=== PATIENT | male | born 1935 | race Caucasian/White ===

== ENCOUNTER → 2017-07-19 | Outpatient (REF) | payer MEDICARE, OTHER ==
[~2017-07-19] MED LIST: /PANT40TA PO; ACET50TA PO; ASPI81TA85 PO; IRONTAB3 PO; MULTTAB4 PO; PIOG15TA2 PO; SIMV40TA2 PO; TRIL135C PO; VALSARTAN/HCTZ PO
[2017-07-19 18:51] LABS: CALCIUM LEVEL 8.3 MG/DL (8.8-10.2); CREATININE FOR GFR 1.54 MG/DL (0.70-1.30); GLOMERULAR FILTRATION RATE 46.5 (>35); POTASSIUM SERUM 4.3 MEQ/L (3.5-5.1)
[2017-07-19 18:55] LABS: MEAN CORPUSCULAR HEMOGLOBIN 29.9 pg (27.0-33.0); MEAN CORPUSCULAR HGB CONC 31.8 g/dl (32.0-36.5); MEAN CORPUSCULAR VOLUME 94.3 fl (80.0-96.0); PLATELET COUNT, AUTOMATED 217 10^3/uL (150-450); RED CELL DISTRIBUTION WIDTH 14.6 % (11.5-14.5); WHITE BLOOD COUNT 8.4 10^3/uL (4.0-10.0)
== END ==
LOC: M LAB REF 16:08
PROVIDERS: ATTEND Internal Medicine
DX: M25.579 Pain in unspecified ankle and joints of unspecified foot (principal); Z95.1 Presence of aortocoronary bypass graft

== ENCOUNTER → 2017-07-30 | Outpatient (CLI) | payer MEDICARE, OTHER ==
--- NOTE | 2017-07-30 16:37 | REP ---
PA and lateral chest: There are no comparisons. There is effacement of the left costophrenic angle. This could be a pleural adhesion or pleural effusion. The left lung is otherwise clear. The right lung is clear. There are sternotomy wires and cardiac valve replacement. Cardiac size is enlarged. There is thoracic scoliosis convex right in the lower thoracic spine left at the thoracolumbar junction. The mediastinum and bony thorax are otherwise unremarkable except for multilevel thoracic spine degenerative disc disease, not unusual for patient age. Signed by Corey Wallace MD 07/30/2017 04:28 P
== END ==
LOC: M RAD 14:56
PROVIDERS: ATTEND Internal Medicine Cardiovascular Disease
DX: Z95.1 Presence of aortocoronary bypass graft (principal); I51.7 Cardiomegaly

== ENCOUNTER → 2017-08-05 | Outpatient (REF) | payer MEDICARE, OTHER ==
[2017-08-05 15:32] LABS: ALBUMIN 2.7 GM/DL (3.2-5.2); ALBUMIN/GLOBULIN RATIO 0.75 (1.00-1.93); CREATININE FOR GFR 1.8 MG/DL (0.70-1.30); GLOMERULAR FILTRATION RATE 38.8 (>35); POTASSIUM SERUM 4.5 MEQ/L (3.5-5.1); TOTAL PROTEIN 6.3 GM/DL (6.4-8.2)
[2017-08-05 18:24] LABS: BASO % 0.3 % (0.0-1.0); EOS % 0.1 % (0.0-3.0); IMMATURE GRANULOCYTE % 0.9 % (0-0); LYMPH # 1.3 10^3/uL (1.5-4.5); LYMPH % 12.6 % (24.0-44.0); MEAN CORPUSCULAR HEMOGLOBIN 29.2 pg (27.0-33.0); MEAN CORPUSCULAR HGB CONC 32.8 g/dl (32.0-36.5); MEAN CORPUSCULAR VOLUME 89.2 fl (80.0-96.0); MONO # 1.3 10^3/uL (0.0-0.8); MONO % 12.5 % (0.0-5.0); NEUTROPHILS # 7.5 10^3/uL (1.8-7.7); NEUTROPHILS % 73.6 % (36.0-66.0); RED CELL DISTRIBUTION WIDTH 14.7 % (11.5-14.5); WHITE BLOOD COUNT 10.2 10^3/uL (4.0-10.0)
[2017-08-05 19:08] LABS: ADD MANUAL DIFFER NO; DIFF SLIDE NUMBER 263; PLATELET COUNT, AUTOMATED 83 10^3/uL (150-450)
[2017-08-05 19:09] LABS: IMMATURE PLATELET FRACTION % 10.1 % (0.0-10.9)
== END ==
LOC: M LAB REF 12:50
DX: R35.0 Frequency of micturition (principal)

== ENCOUNTER 2018-06-29 17:22 | Outpatient (CLI) | payer MEDICARE, OTHER ==
[2018-06-30 09:08] LABS: HEMATOCRIT 42.1 % (42.0-52.0); HEMOGLOBIN 13.6 g/dl (13.5-17.5); MEAN CORPUSCULAR HEMOGLOBIN 31.8 pg (27.0-33.0); MEAN CORPUSCULAR HGB CONC 32.3 g/dl (32.0-36.5); MEAN CORPUSCULAR VOLUME 98.4 fl (80.0-96.0); PLATELET COUNT, AUTOMATED 108 10^3/uL (150-450); RED BLOOD COUNT 4.28 10^6/uL (4.30-6.10); RED CELL DISTRIBUTION WIDTH 14.2 % (11.5-14.5); WHITE BLOOD COUNT 7.6 10^3/uL (4.0-10.0)
[2018-06-30 09:22] LABS: INR 1.01; PROTHROMBIN TIME 13.4 SECONDS (12.1-14.4)
[2018-06-30 09:29] LABS: ALBUMIN/GLOBULIN RATIO 0.75 (1.00-1.93); ALKALINE PHOSPHATASE 133 U/L (45-117); ALT/SGPT 38 U/L (12-78); ANION GAP 6 MEQ/L (8-16); AST/SGOT 58 U/L (7-37); BILIRUBIN,TOTAL 0.6 MG/DL (0.2-1.0); BLOOD UREA NITROGEN 21 MG/DL (7-18); CALCIUM LEVEL 8.7 MG/DL (8.8-10.2); CARBON DIOXIDE LEVEL 31 MEQ/L (21-32); CHLORIDE LEVEL 102 MEQ/L (98-107); CHOLESTEROL LEVEL 139 MG/DL (<200); CHOLESTEROL RISK RATIO 3.564 (<5); CREATININE FOR GFR 1.83 MG/DL (0.70-1.30); GLUCOSE, FASTING 125 MG/DL (70-100); HDL CHOLESTEROL 39 MG/DL (>40); LDL CHOLESTEROL 45 MG/DL (<100); MAGNESIUM LEVEL 2.4 MG/DL (1.8-2.4); NON-HDL-C 100 MG/DL; POTASSIUM SERUM 4.2 MEQ/L (3.5-5.1); SODIUM LEVEL 139 MEQ/L (136-145); TRIGLYCERIDES LEVEL 275 MG/DL (<150)
[2018-06-30 11:37] LABS: PTH INTACT 72.9 PG/ML (18.5-88.0)
[2018-06-30 12:53] LABS: ESTIMATED AVERAGE GLUCOSE 163 MG/DL (60-110); HEMOGLOBIN A1c 7.3 %
[2018-06-30 18:07] LABS: AMORPHOUS SEDIMENT MODERATE (NEGATIVE); APPEARANCE, URINE CLOUDY (CLEAR); BACTERIA, URINE AUTO 1+ (NEGATIVE); BILIRUBIN, URINE AUTO NEGATIVE (NEGATIVE); BLOOD, URINE BLOOD NEGATIVE (NEGATIVE); COLOR, URINE YELLOW (YELLOW); GLUCOSE, URINE (UA) AUTO NEGATIVE (NEGATIVE); KETONE, URINE AUTO NEGATIVE (NEGATIVE); LEUKOCYTE ESTERASE, URINE AUTO 2+ (NEGATIVE); MUCUS, URINE SMALL (NEGATIVE); NITRITE, URINE AUTO NEGATIVE (NEGATIVE); PROTEIN, URINE AUTO 2+ mg/dL (NEGATIVE); RBC, URINE AUTO 3 /HPF (0-3); SPECIFIC GRAVITY URINE AUTO 1.017 (1.002-1.035); SQUAMOUS EPITHELIAL CELL UR AU 2 /HPF (0-6); UROBILINOGEN, URINE AUTO 0.2 mg/dL (0.0-2.0); WBC, URINE AUTO TNTC /HPF (0-3)
[2018-06-30 18:52] LABS: MAU/CREAT RATIO 674.3 MCG/MG (0.0-30.0)
== END 2018-06-30 ==
LOC: M LAB 06-30 08:21
DX: K74.60 Unspecified cirrhosis of liver (principal); Z79.899 Other long term (current) drug therapy
CPT/HCPCS: 83735

== ENCOUNTER → 2018-12-04 | Outpatient (REF) | payer MEDICARE, OTHER ==
[~2018-12-04] MED LIST changes: -/PANT40TA PO; -ACET50TA PO; +MAPA500T17 PO; +PROT1TAB2 PO
[2018-12-05 10:28] LABS: APPEARANCE, URINE CLOUDY (CLEAR); BACTERIA, URINE AUTO 1+ (NEGATIVE); BILIRUBIN, URINE AUTO NEGATIVE (NEGATIVE); BLOOD, URINE BLOOD NEGATIVE (NEGATIVE); COLOR, URINE YELLOW (YELLOW); GLUCOSE, URINE (UA) AUTO 2+ mg/dL (NEGATIVE); KETONE, URINE AUTO NEGATIVE (NEGATIVE); LEUKOCYTE ESTERASE, URINE AUTO 3+ (NEGATIVE); NITRITE, URINE AUTO NEGATIVE (NEGATIVE); PROTEIN, URINE AUTO 1+ mg/dL (NEGATIVE); RBC, URINE AUTO 2 /HPF (0-3); SPECIFIC GRAVITY URINE AUTO 1.012 (1.002-1.035); SQUAMOUS EPITHELIAL CELL UR AU 0 /HPF (0-6); UROBILINOGEN, URINE AUTO 0.2 mg/dL (0.0-2.0); WBC, URINE AUTO 92 /HPF (0-3)
[2018-12-05 11:34] LABS: CREATININE, URINE 62.5 MG/DL; MAU/CREAT RATIO 342.4 MCG/MG (0.0-30.0)
== END ==
LOC: M LAB REF 09:24
PROVIDERS: ATTEND Internal Medicine
DX: Z00.00 Encounter for general adult medical examination without abnormal findings (principal); K74.60 Unspecified cirrhosis of liver; R79.89 Other specified abnormal findings of blood chemistry; N18.3 Chronic kidney disease, stage 3 (moderate)

== ENCOUNTER → 2019-03-31 | Outpatient (CLI) | payer MEDICARE, OTHER ==
[2019-03-31 18:15] LABS: CHOLESTEROL RISK RATIO 3.709 (<5); MAGNESIUM LEVEL 2.5 MG/DL (1.8-2.4); THYROID STIMULATING HORMONE 5.9 uIU/ML (0.358-3.740); URIC ACID 6.7 MG/DL (3.5-7.2)
[2019-03-31 18:18] LABS: HEMOGLOBIN A1c 7.3 %
== END ==
LOC: M LAB 17:19
PROVIDERS: ATTEND Internal Medicine
DX: E11.29 Type 2 diabetes mellitus with other diabetic kidney complication (principal); E78.00 Pure hypercholesterolemia, unspecified; I12.9 Hypertensive chronic kidney disease with stage 1 through stage 4 chronic kidney disease, or unspecified chronic kidney disease; E03.2 Hypothyroidism due to medicaments and other exogenous substances; N18.3 Chronic kidney disease, stage 3 (moderate)
CPT/HCPCS: 36415; 80061; 83036; 83735; 84443; 84550; G0463

== ENCOUNTER → 2020-05-30 | Outpatient (REF) | payer MEDICARE, OTHER ==
[2020-05-30 18:35] LABS: PERCENT SATURATION 24.8 % (19.7-50.0)
== END ==
LOC: M LAB REF 17:02
PROVIDERS: ATTEND Internal Medicine Nephrology
DX: N18.30 Chronic kidney disease, stage 3 unspecified (principal); D63.1 Anemia in chronic kidney disease

== ENCOUNTER → 2020-06-27 | Outpatient (REF) | payer MEDICARE, OTHER ==
[2020-06-27 17:46] LABS: BACTERIA, URINE AUTO NEGATIVE (NEGATIVE); RBC, URINE AUTO 63 /HPF (0-3); RENAL EPITHELIAL CELLS 1 /HPF; SQUAMOUS EPITHELIAL CELL UR AU 1 /HPF (0-6); WBC, URINE AUTO TNTC /HPF (0-3)
== END ==
LOC: M LAB REF 16:59
PROVIDERS: ATTEND Internal Medicine Nephrology
DX: N18.30 Chronic kidney disease, stage 3 unspecified (principal); R31.29 Other microscopic hematuria; R82.81 Pyuria

== ENCOUNTER → 2020-07-24 | Outpatient (CLI) | payer MEDICARE, OTHER ==
[2020-07-24 15:48] LABS: BASO % 0.7 % (0.0-1.0); EOS # 0.3 10^3/uL (0.0-0.5); EOS % 5.2 % (0.0-3.0); HEMATOCRIT 35.2 % (42.0-52.0); HEMOGLOBIN 11.1 g/dl (13.5-17.5); LYMPH # 2.4 10^3/uL (1.5-5.0); LYMPH % 41.1 % (24.0-44.0); MEAN CORPUSCULAR HEMOGLOBIN 31.1 pg (27.0-33.0); MEAN CORPUSCULAR HGB CONC 31.5 g/dl (32.0-36.5); MEAN CORPUSCULAR VOLUME 98.6 fl (80.0-96.0); MONO # 0.7 10^3/uL (0.0-0.8); NEUTROPHILS # 2.4 10^3/uL (1.5-8.5); NEUTROPHILS % 40.7 % (36.0-66.0); RED BLOOD COUNT 3.57 10^6/uL (4.30-6.10); WHITE BLOOD COUNT 5.9 10^3/uL (4.0-10.0)
[2020-07-24 16:05] LABS: PLATELET COUNT, AUTOMATED 79 10^3/uL (150-450)
[2020-07-24 16:25] LABS: ALBUMIN 2.3 GM/DL (3.2-5.2); BILIRUBIN,TOTAL 0.9 MG/DL (0.2-1.0); CALCIUM LEVEL 8.2 MG/DL (8.8-10.2); CREATININE FOR GFR 2.52 MG/DL (0.70-1.30); GLOMERULAR FILTRATION RATE 26.1 (>35); POTASSIUM SERUM 4.5 MEQ/L (3.5-5.1); TOTAL PROTEIN 6.8 GM/DL (6.4-8.2)
== END ==
LOC: M WUC 11:06
PROVIDERS: ATTEND Internal Medicine Cardiovascular Disease
DX: I50.42 Chronic combined systolic (congestive) and diastolic (congestive) heart failure (principal); I11.0 Hypertensive heart disease with heart failure; Z95.2 Presence of prosthetic heart valve; N18.30 Chronic kidney disease, stage 3 unspecified; R31.29 Other microscopic hematuria; R82.81 Pyuria

== ENCOUNTER → 2020-07-24 | Outpatient (REF) | payer MEDICARE, OTHER ==
[2020-07-24 17:39] LABS: AMORPHOUS SEDIMENT SMALL (NEGATIVE); BACTERIA, URINE AUTO 3+ (NEGATIVE); RBC, URINE AUTO 25 /HPF (0-3); SQUAMOUS EPITHELIAL CELL UR AU 0 /HPF (0-6); WBC, URINE AUTO TNTC /HPF (0-3)
== END ==
LOC: M LAB REF 17:10
PROVIDERS: ATTEND Internal Medicine Nephrology
DX: N18.30 Chronic kidney disease, stage 3 unspecified (principal); R31.29 Other microscopic hematuria; R82.81 Pyuria

== ENCOUNTER → 2020-07-31 | Outpatient (REF) | payer MEDICARE, OTHER ==
[2020-07-31 17:57] LABS: BACTERIA, URINE AUTO NEGATIVE (NEGATIVE); MUCUS, URINE SMALL (NEGATIVE); RBC, URINE AUTO 2 /HPF (0-3); SQUAMOUS EPITHELIAL CELL UR AU 2 /HPF (0-6); TRANSITIONAL EPITHELIAL AUTO <1 /HPF; WBC, URINE AUTO 38 /HPF (0-3)
== END ==
LOC: M LAB REF 16:56
PROVIDERS: ATTEND Internal Medicine Nephrology
DX: N18.30 Chronic kidney disease, stage 3 unspecified (principal); R31.29 Other microscopic hematuria

== ENCOUNTER → 2020-08-06 | Outpatient (REF) | payer MEDICARE, OTHER ==
[2020-08-06 17:30] LABS: BACTERIA, URINE AUTO NEGATIVE (NEGATIVE); RBC, URINE AUTO 7 /HPF (0-3); SQUAMOUS EPITHELIAL CELL UR AU 1 /HPF (0-6); WBC, URINE AUTO 24 /HPF (0-3)
== END ==
LOC: M LAB REF 16:09
PROVIDERS: ATTEND Internal Medicine Nephrology
DX: N18.30 Chronic kidney disease, stage 3 unspecified (principal); R31.29 Other microscopic hematuria; R82.81 Pyuria

== ENCOUNTER → 2020-08-28 | Outpatient (REF) | payer MEDICARE, OTHER ==
[~2020-08-28] MED LIST changes: +ACET-897 PO; +ALBU83IN INH; +AMIO0.1T PO; +ASPI-161 PO; +ATOR40TA75 PO; +AZIT500T5 PO; +CALC1CAP31 PO; +CALC500C14 PO; +DEXA2TA PO; +DOCU-129 PO; +FAMO40TA3 PO; +GLIM1TAB4 PO; +LEVO75TA4 PO; +MAGN1TAB26 PO; +MAGN400T3 PO; +MIRA1POW3 PO; +MIRA3350 PO; +OYST500T91 PO; +POTA1TAB23 PO; +SENN-122 PO; +SITA50TAB PO; +SPIR-10 PO; +TAMS1CAP17 PO; +TORS10TA3 PO; +VITMTA PO; +ZITH500T PO
[2020-08-28 18:11] LABS: BASO % 0.5 % (0.0-1.0); EOS # 0.2 10^3/uL (0.0-0.5); EOS % 3.1 % (0.0-3.0); HEMATOCRIT 31.3 % (42.0-52.0); HEMOGLOBIN 9.6 g/dl (13.5-17.5); LYMPH # 1.8 10^3/uL (1.5-5.0); LYMPH % 31.1 % (24.0-44.0); MEAN CORPUSCULAR HEMOGLOBIN 31.5 pg (27.0-33.0); MEAN CORPUSCULAR HGB CONC 30.7 g/dl (32.0-36.5); MEAN CORPUSCULAR VOLUME 102.6 fl (80.0-96.0); MONO # 0.7 10^3/uL (0.0-0.8); MONO % 12.8 % (0.0-5.0); NEUTROPHILS % 52.3 % (36.0-66.0); RED BLOOD COUNT 3.05 10^6/uL (4.30-6.10); WHITE BLOOD COUNT 5.8 10^3/uL (4.0-10.0)
[2020-08-28 18:18] LABS: PLATELET COUNT, AUTOMATED 88 10^3/uL (150-450)
[2020-08-28 18:30] LABS: INR 1.23; PROTHROMBIN TIME 15.7 SECONDS (12.5-14.3)
[2020-08-28 18:40] LABS: CALCIUM LEVEL 8.2 MG/DL (8.8-10.2); CREATININE FOR GFR 2.37 MG/DL (0.70-1.30); GLOMERULAR FILTRATION RATE 28.1 (>35); POTASSIUM SERUM 4.6 MEQ/L (3.5-5.1)
== END ==
LOC: M SFHCPLAZ 15:39
PROVIDERS: ATTEND Internal Medicine
DX: T14.8XXA Other injury of unspecified body region, initial encounter (principal); K74.60 Unspecified cirrhosis of liver; N18.30 Chronic kidney disease, stage 3 unspecified
CPT/HCPCS: 36415; 80048; 83880; 85025; 85049; 85055; 85610; G0463

== ENCOUNTER → 2020-08-29 | Outpatient (REF) | payer MEDICARE, OTHER ==
[~2020-08-29] MED LIST changes: -ACET-897 PO; -ALBU83IN INH; -AMIO0.1T PO; -ASPI-161 PO; -ATOR40TA75 PO; -AZIT500T5 PO; -CALC1CAP31 PO; -CALC500C14 PO; -DEXA2TA PO; -DOCU-129 PO; -FAMO40TA3 PO; -GLIM1TAB4 PO; -LEVO75TA4 PO; -MAGN1TAB26 PO; -MAGN400T3 PO; -MIRA1POW3 PO; -MIRA3350 PO; -OYST500T91 PO; -POTA1TAB23 PO; -SENN-122 PO; -SITA50TAB PO; -SPIR-10 PO; -TAMS1CAP17 PO; -TORS10TA3 PO; -VITMTA PO; -ZITH500T PO
[2020-08-29 17:57] LABS: BACTERIA, URINE AUTO 3+ (NEGATIVE); MUCUS, URINE SMALL (NEGATIVE); RBC, URINE AUTO 88 /HPF (0-3); SQUAMOUS EPITHELIAL CELL UR AU 0 /HPF (0-6); TRANSITIONAL EPITHELIAL AUTO 1 /HPF; WBC, URINE AUTO TNTC /HPF (0-3)
== END ==
LOC: M LAB REF 17:11
PROVIDERS: ATTEND Internal Medicine Nephrology
DX: N18.30 Chronic kidney disease, stage 3 unspecified (principal); R31.29 Other microscopic hematuria; R82.81 Pyuria

== ENCOUNTER → 2020-09-10 | Outpatient (REF) | payer MEDICARE, OTHER ==
[~2020-09-10] MED LIST changes: +ACET-897 PO; +ALBU83IN INH; +AMIO0.1T PO; +ASPI-161 PO; +ATOR40TA75 PO; +AZIT500T5 PO; +CALC1CAP31 PO; +CALC500C14 PO; +DEXA2TA PO; +DOCU-129 PO; +FAMO40TA3 PO; +GLIM1TAB4 PO; +LEVO75TA4 PO; +MAGN1TAB26 PO; +MAGN400T3 PO; +MIRA1POW3 PO; +MIRA3350 PO; +OYST500T91 PO; +POTA1TAB23 PO; +SENN-122 PO; +SITA50TAB PO; +SPIR-10 PO; +TAMS1CAP17 PO; +TORS10TA3 PO; +VITMTA PO; +ZITH500T PO
[2020-09-10 17:49] LABS: PERCENT SATURATION 13.4 % (19.7-50.0)
== END ==
LOC: M LAB REF 16:53
PROVIDERS: ATTEND Internal Medicine Nephrology
DX: N18.32 Chronic kidney disease, stage 3b (principal); I50.42 Chronic combined systolic (congestive) and diastolic (congestive) heart failure

== ENCOUNTER 2020-09-18 14:23 | Inpatient (IN) | payer MEDICARE, OTHER ==
[~2020-09-18] VITALS: Ht 182.9 cm; Wt 116.2 kg
[~2020-09-18 14:23] MED LIST changes: -ACET-897 PO; -ALBU83IN INH; -AMIO0.1T PO; -ASPI-161 PO; -ATOR40TA75 PO; -AZIT500T5 PO; -CALC1CAP31 PO; -CALC500C14 PO; -DEXA2TA PO; -DOCU-129 PO; -FAMO40TA3 PO; -GLIM1TAB4 PO; -LEVO75TA4 PO; -MAGN1TAB26 PO; -MAGN400T3 PO; -MIRA1POW3 PO; -MIRA3350 PO; -OYST500T91 PO; -POTA1TAB23 PO; -SENN-122 PO; -SITA50TAB PO; -SPIR-10 PO; -TAMS1CAP17 PO; -TORS10TA3 PO; -VITMTA PO; -ZITH500T PO
[2020-09-18 15:28] LABS: VENOUS BASE EXCESS -6.2 (-2.0-2.0); VENOUS HCO3 19.7 MEQ/L (23.0-27.0); VENOUS O2 SATURATION 97.6 % (60.0-80.0); VENOUS PARTIAL PRESSURE CO2 40.5 mmHg (38.0-50.0); VENOUS PARTIAL PRESSURE O2 119.2 mmHg (30.0-50.0); VENOUS PH 7.304 UNITS (7.330-7.430); VENOUS STANDARD HCO3 19.3 MEQ/L; VENOUS TOTAL CO2 20.9 MEQ/L (24.0-28.0)
[2020-09-18 15:31] LABS: BASO % 0.1 % (0.0-1.0); HEMATOCRIT 30.8 % (42.0-52.0); LYMPH # 0.5 10^3/uL (1.5-5.0); LYMPH % 5.1 % (24.0-44.0); MEAN CORPUSCULAR HEMOGLOBIN 32.3 pg (27.0-33.0); MEAN CORPUSCULAR HGB CONC 32.5 g/dl (32.0-36.5); MEAN CORPUSCULAR VOLUME 99.4 fl (80.0-96.0); MONO # 0.5 10^3/uL (0.0-0.8); MONO % 5.4 % (0.0-5.0); NEUTROPHILS # 8.6 10^3/uL (1.5-8.5); NEUTROPHILS % 88.3 % (36.0-66.0); WHITE BLOOD COUNT 9.8 10^3/uL (4.0-10.0)
[2020-09-18 15:32] LABS: PLATELET COUNT, AUTOMATED 70 10^3/uL (150-450)
[2020-09-18] MEDS ORDERED: TORS10TA3 PO (15:37)
[2020-09-18] MEDS ORDERED: CALC1CAP31 PO (15:37)
[2020-09-18] MEDS ORDERED: LEVO75TA4 PO (15:37)
[2020-09-18] MEDS ORDERED: SITA50TAB PO (15:37)
[2020-09-18] MEDS ORDERED: MAGN400T3 PO (15:37)
[2020-09-18] MEDS ORDERED: ZITH500T PO (15:37)
[2020-09-18] MEDS ORDERED: POTA1TAB23 PO (15:37)
[2020-09-18] MEDS ORDERED: ATOR40TA75 PO (15:37)
[2020-09-18] MEDS ORDERED: DOCU-129 PO (15:37)
[2020-09-18] MEDS ORDERED: GLIM1TAB4 PO (15:37)
[2020-09-18] MEDS ORDERED: DEXA2TA PO (15:37)
[2020-09-18] MEDS ORDERED: CALC500C14 PO (15:37)
[2020-09-18] MEDS ORDERED: FAMO40TA3 PO ×2 (15:37→22:33)
[2020-09-18] MEDS ORDERED: MIRA3350 PO (15:37)
[2020-09-18] MEDS ORDERED: TAMS1CAP17 PO (15:37)
[2020-09-18] MEDS ORDERED: AMIO0.1T PO ×2 (15:37→22:33)
[2020-09-18] MEDS ORDERED: SPIR-10 PO (15:37)
--- OUTSIDE RECORDS SUMMARY | 2020-09-18 15:45 | CCD ---
Author Author [employer] Organization [employer] Address Unknown Phone Unavailable Care Team Providers Care Chart Changer Name Role Phone Costa Camacho Unavailable PROBLEMS Type Condition ICD9-CM Code CBU02-OD Code Onset Dates Condition S tatus SNOMED Code Notes Problem Senile dementia, uncomplicated F03.90 Active 5 [id number] In the past she was seen at [facility] in [place] in 2005. Has had PET scan. Stable by interview with the patient and his family today . 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 I stopped this in April 2013. GFR was low and he was on Actos therapy at the time, which has since been discontinued. Hgb has remained in the 13-14 range and was most recently 13.6 in June 2018, 12.8 in November 2018, 12.6 in March 2019, 11.8 in September 2019, 12.0 in February 2020. No doubt his renal insufficiency is contributing to his mild anemia. Problem Gastroesophageal reflux K21.9 Active [id number] 4 He had an upper endoscopy in July 2009, apparently because of anemia. There was some gastritis seen on EGD and he was given intensified PPI therapy. He is asymptomatic at present and stopped his Protonix therapy in late 2012. Problem Cirrhosis of liver K74.60 Active 14742345 This is likely because of his prior alcohol use and is suggested on imaging studies in April 2013. Liver enzymes have intermittently been normal, but most recently there has been a a mild AST and alkaline phosphatase elevation since at least June 2018. His most recent labs in September 2019 demonstrated mild AST elevation of 63 with an alkaline phosphatase elevation of 157. He has hypersplenism with a platelet count of 113,000 in December 2017, 108,000 in June 2018, 112,000 in November 2018, 103,000 in March 2019, 112,000 in September 2019, 90,000 in February 2020. Problem Hypercholesterolemia E78.00 Active 50814043 On simvastatin and fenofibrate in the past and I restarted just a statin in 06/2013; he was switched to atorvastatin in 2014 and he takes 40 mg daily. His triglycerides are just mildly elevated as of September 2019 but his LDL meets secondary prevention targets. He may need Vascepa added to his regimen in the future. Problem History of aortic valve replacement Z95.2 Acti ve [id number] He had an aortic valve replacement for significant aortic stenosis in June 2017 and is doing fairly well from my standpoint; he had a follow-up echocardiogram in April 2018. 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 This is apparently not causing him any issues. Problem Slow transit constipation K59.01 Active 960989 07 He takes MiraLAX or Metamucil as needed. 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 He was started on thyroid replacement therapy; he had a dose increase to 50 mcg daily in March 2019 but as of 2019 TSH remains high at 5.7 and the dose was increased to 75 mcg daily. 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 He is followed closely by a retinal specialist now. He is receiving intravitreal injections with Eylea apparently about every 4 months as of late March 2019. Problem Chronic kidney disease, stage 3 (moderate) N18.3 Active 016715689 His renal function has been declining, and he is now seeing nephrology. Most recent creatinine was stable at 2.2 with a GFR of 27 in February 2020, versus a creatinine of 1.91 with a GFR of 32 in March 2019, 2.05 with a GFR of 29 in September 2019. Bilateral renal cortical thickening was seen on ultrasound in 2019, per nephrology. 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 Last HgbA1c was improved on glimepiride at 7% in February 2020, 6.9% in September 2019, 7.3% in March 2019, versus 7.9% in November 2018. He has had some proteinuria and had been on lisinopril but this has been discontinued due to low blood pressures. Most recent urine microalbumin was improved at 253 mcg/mg of creatinine in February 2020, versus 471 mcg/mg of creatinine at his nephrology visit in May 2019, 342 mcg/mg creatinine in November 2018 versus 600 mcg per milligram creatinine range at his nephrology visit in October 2018. He has some asymptomatic pyuria on urinalysis at his nephrology visits. Nephrology is involved per referral from cardiology in early 2018. ACP guidelines suggest that keeping the hemoglobin A1c less than 8% is acceptable to minimize diabetic endorgan complications. Problem Persistent proteinuria R80.1 Active [id number] This will be followed. He sees nephrology now also. Problem History of congestive heart failure Z86.79 Acti ve 340637133 He was felt to have some congestive heart failure at his April 2018 cardiology visit. He was started on torsemide 10 mg daily with spironolactone and most recently his torsemide dose is 20 mg daily, likely a dose increase from 10 mg daily as of early 2019. A repeat echocardiogram was done April 2018, and his ejection fraction of 60% with grade 1 diastolic dysfunction, mild mitral regurgitation, while seated and well-functioning aortic valve bioprosthesis. 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 Repeat echocardiogram was done in April 2018, and revealed a left ventricular ejection fraction of 60% with mild LVH and grade 1 diastolic dysfunction as well as mild mitral regurgitation. ALLERGIES No Known Allergies ENCOUNTERS from 1936 to 2020-08-20 Encounter Location Date Provider Diagnosis [facility] [place] [address] Jul, Costa Doug Pain in left shoulder M25.512 and Limite d mobility Z74.09 IMMUNIZATIONS Vaccine Route Administration Date Status Influenza (High Dose 65 & up) Unknown Jun 05, 2016 Ad ministered Pneumococcal Adult 0.5mL (Pneumovax 23) Unknown Sep 16, 2006 Administered Pneumococcal 0.5mL (Prevnar 13) IM Intramuscular March 03, 2016 Administered TD Adult 0.5mL (Tetanus) Unknown December 29, 2007 Adminis tered Influenza (6mo & up) Fluzone Unknown Jun 26, 2015 Adm inistered Influenza (6mo & up) Fluzone Unknown Apr 27, 2013 Adm inistered Influenza (High Dose 65 & up) Unknown Jun 01, 2018 Ad ministered Influenza (6mo & up) Fluzone Unknown May 25, 2012 Adm inistered Zoster 50mcg/0.5mL (Shingrix) Unknown February 12, 2020 Ad ministered Influenza (6mo & up) Fluzone Unknown Apr 23, 2011 Adm inistered Influenza (Pharmacy Given) Unknown Jun 13, 2019 Admin istered Influenza (6mo & up) Fluzone Unknown Apr 23, 2010 Adm inistered SOCIAL HISTORY Sex Assigned At : Social History Observation Description Sex Assigned At Unknown Audit Question Answer Notes Total Score: 0 Interpretation: Alcohol Education Language: Question Answer Notes Languages spoken: [place] Adventism: Question Answer Notes Adventism No gnosticism beliefs that would impact health care. Sexual Hx: Question Answer Notes Had sex in the last 12 months (vaginal, oral, or anal)? No Have you ever had an STD? No Drug and Alcohol Question Answer Notes Total Score: 0 Interpretation: No problems reported Alcohol Screening: Question Answer Notes Did you have a drink containing alcohol in the past year? No Points 0 Interpretation Negative BMI Care Goal Follow-Up Question Answer Notes Above Normal BMI Follow-Up Weight monitoring REASON FOR REFERRAL No Information VITAL SIGNS Weight 235.0 lbs Jul, Height 72 in Jul, BMI 31.87 kg/m2 Jul, Heart Rate 89 /min Jul, Respiratory Rate 18 /min Jul, Temperature 98.4 degrees Fahrenheit Jul, Oximetry 96% Jul, Blood pressure systolic 116 mm Hg Jul, Blood pressure diastolic 68 mm Hg Jul, MEDICATIONS Medication SIG (Take, Route, Frequency, Duration) Notes Start Da te End Date Status Potassium Chloride ER 10 MEQ 1 tablet with food Orally Once a day for Active MiraLax - Orally Every other day alternating with metamucil Active May Have - as directed Overbed trapeze and side rail for bed Use daily; diagnosis Z74.09 for 1999 Jul, A ctive Colace 100 mg 1 capsule as needed Orally Once a day Active Torsemide 10 MG 2 tablet Orally Daily Active Aspirin 81 MG 1 tablet Orally Once a day Active Multiple Vitamin - 1 tablet Orally Once a day Active Magnesium Oxide 400 MG 1 tablet Orally twice daily Active Spironolactone 25 mg 1 tablet Orally Once a day Active Atorvastatin Calcium 40 MG 1 tablet Orally Once a day Active Levothyroxine Sodium 50 MCG 1 tablet on an empty stoma ch in the morning Orally Once a day for 90 Active Flomax 0.4 MG 2 cap(s) Orally Once a day for 90 Active Metamucil 48.57 % Orally Every other day alternating with miralax Active Januvia 50 MG 1 tablet Orally Once a day for 90 Active Glimepiride 1 MG 1 tablet with breakfast or t he first main meal of the day Orally Once a day for 90 Active Albuterol Sulfate (2.5 MG/3ML) 0.083% 3 ml as needed I nhalation Twice aday, and every 4 hours as needed for 30 day(s) Apr, Active Amiodarone HCl 100 MG 1 tablet Orally Once a day Active Triamcinolone Acetonide 0.1 % 1 application to affecte d area Externally Twice a day to lower extremities for 30 day(s) Nov, Not-Taking PROCEDURES from 1935 to 2020-08-20 Procedure Date Ordered Result Body Site Medication: Kenalog 10mg/1mL [place] (Triamcinolone) 2020-08-13 N/A RESULTS No Results REASON FOR VISIT Shoulder injection MEDICAL (GENERAL) HISTORY Type Description Date Medical History Type 2 diabetes mellitus wit h other diabetic kidney complication Medical History Hypercholesterolemia Medical History Chronic kidney disease, stage 3 (moderat e) Medical History Hypertension with renal disease Medical History Cirrhosis of liver Medical History Senile dementia, uncomplicated Medical History Anemia of renal disease Medical History History of congestive heart failure Medical History Hypersplenism Medical History Aortic valve stenosis Medical History History of aortic valve replacement Medical History Persistent proteinuria Surgical History Cervical spine surgery (approx) 04/25/19 88 Surgical History Bilateral cataract extractions 3 Surgical History Lumbar laminectomy (approx) 09/24/2004 Surgical History Colonoscopy and EGD 07/2009 Surgical History CABG with 2 stents placed and aortic jay ve replacement-[facility] [place] 07/05/2017 Hospitalization History [facility] [place]-CABG and aortic valve replac [facility] 07/05-07/09/2017 Goals Section No Information Health Concerns No Information MEDICAL EQUIPMENT No Information MENTAL STATUS No Information FUNCTIONAL STATUS No Information ASSESSMENTS Encounter Date Diagnosis Assessment Notes Treatment Notes Treatm ent Clinical Notes Jul, Pain in left shoulder (ICD-10 - M25.512) He had a cortisone injection in his left shoulder today. I recommended ice to be applied for 20 minutes today, then heat twice a day followed by range of motion exercises. Jul, Limited mobility (ICD-10 - Z74.09) There is mobility limitation and he is finding it difficult to manipulate himself in bed. An over bed trapeze and side rail would be of benefit to him to allow him to position himself more comfortably in bed. PLAN OF TREATMENT Medication Medication Name Sig Start Date Stop Date May Have - as directed Overbed trapeze and side rail for bed Use daily; diagnosis Z74.09 for 2000 days Jul, Next Appt Details Keep scheduled appointment Reason: Provider Name:Costa Camacho, 2020-09-24 03 :30:00 PM, [address] [place], [address], Insurance Providers Payer Name Payer Address Payer Phone Insured Name Patient Relati onship to Insured Coverage Start Date Coverage End Date [employer] [address] [id number] [facility] [phone] DEBBIE EUCEDA self MEDICARE Part A and B [address] [facility] [phone] [employer]BBIE [employer] self
--- OUTSIDE RECORDS SUMMARY | 2020-09-18 15:46 | CCD | Continuity of Care Document ---
Author Author Reese DENG MD Organization Unknown Address [facility] [place] [address] Phone [phone] Care Team Providers Care Dermatologist Managing Partner Name Role Phone Costa Camacho MD AUTM [phone] Adal Carreon MD AUTM [phone] Ravinder Barakat MD AUTM [phone] Problems Active Problems Provider Date Aortic valve disorder Marcos eDng MD Onset: 05/21/2017 Premature beats Marcos Deng MD Onset: 05/21/2017 Electrocardiogram abnormal Marcos Deng MD Onset: 2016 Right bundle branch block Marcos Deng MD Onset: 017 Benign hypertensive heart disease without congestive h eart failure Marcos Deng MD Onset: 05/21/2017 History of coronary artery bypass grafting Alana Nelson Onset: 07/29/2017 Heart valve replacement Marcos Deng MD Onset: 7 Multi vessel coronary artery disease Marcos Deng MD Ons et: 07/29/2017 Disorder of diaphragm Marcos Deng MD Onset: 08/27/2017 Edema Marcos Deng MD Onset: 12/17/2017 Left heart failure Marcos Deng MD Onset: 05/12/2018 Benign hypertensive heart disease with congestive card iac failure Marcos Deng MD Onset: 05/12/2018 Chronic combined systolic and diastolic heart failure Marcos Deng MD Onset: 05/26/2018 Right bundle branch block AND left anterior fascicular block Marcos Deng MD Onset: 07/19/2018 Renal failure syndrome Marcos Deng MD Onset: 07/19/2018 Trifascicular block Marcos Deng MD Onset: 09/14/2019 Dietary management surveillance Marcos Deng MD Onset: 0 12/19/2019 Social History Type Date Description Comments Sex Unknown ETOH Use Does not consume alcohol Tobacco Use Start: Unknown End: Unknown Patient is a former smoker Started smoking in teenage years, stopped over 30 years ago Smoking Status Reviewed: 12/07/18 Patient is a former smoker [facility] smoking in teenage years, stopped over 30 years ago Exercise Type/Frequency Walks sporadically Exercise Limitations None Allergies, Adverse Reactions, Alerts Description No Known Drug Allergies Medications Active Medications SIG Qnty Indications Ordering Provide r Date Amiodarone HCL 100mg Tablets 1 by mouth every day 90tabs I49.3 Marcos Deng MD 09/14/2019 Levothyroxine Sodium 50mcg Tablets 1 by mouth every day Unknown 06/08/2019 Stool Softener 100mg Capsules 2 by mouth every day Unknown 06/08/2019 Metamucil 28.3% Powder as nee ded Unknown 06/08/2019 Glimepiride 1mg Tablets 1 by mouth every day Unknown 03/12/2019 Spironolactone 25mg Tablets 1 by mouth every day I50.9 Ravinder Barakat MD 08/30/2018 Torsemide 10mg Tablets 2 by mouth every day 180tabs I50.42 Marcos Deng MD 08/30/2018 Potassium Chloride ER 10Meq Tablet s ER 1 by mouth every day 90tabs I50.42 Marcos Deng MD 08/30/2018 Magnesium Oxide 400(241.3mg) mg Ta blets Take One Tablet By Mouth Twice A Day 180tabs I50.42 Marcos amezquita MD 05/26/2018 Tamsulosin HCL 0.4mg Capsules 2 by mouth every day Costa Camacho MD 05/11/2018 Atorvastatin Calcium 40mg Tablets Take One Tablet By Mouth AT Bedtime 90tabs Marcos Deng MD Aspirin Low Dose Tablets 1 by mouth every day Unknown 05/20/2017 Multivitamin Adults 50+ Adlt 50+ T ablets take 1 tab by mouth daily Unknown 2016 Januvia 50mg Tablets 1 by mouth every day Unknown 05/20/2017 Immunizations Description No Information Available Vital Signs Date Vital Result Comment 12/19/2019 12:26pm Weight 239.00 lb Height 73 inches 6'1" BMI (Body Mass Index) 31.5 kg/m2 Heart Rate 68 /min regular Respiratory Rate 16 /min BP Systolic Sitting 118 mmHg Medium cuff, Ra (asy mptomatic) BP Diastolic Sitting 72 mmHg Medium cuff, Ra (as ymptomatic) BP Systolic Lying Down 138 mmHg BP Diastolic Lying Down 76 mmHg 09/14/2019 12:21pm Weight 233.00 lb Height 73 inches 6'1" BMI (Body Mass Index) 30.7 kg/m2 Heart Rate 54 /min regular Respiratory Rate 16 /min BP Systolic Sitting 108 mmHg Medium cuff, Ra BP Diastolic Sitting 82 mmHg Medium cuff, Ra BP Systolic Lying Down 123 mmHg BP Diastolic Lying Down 82 mmHg Results Test Acquired Date Facility Test Result H/L Range Note CMP 07/24/2020 [facility] nter [phone] Glucose, Fasting 207 mg/dL High 70-100 Blood Urea Nitrogen 27 mg/dL High 7-18 Creatinine For GFR 2.52 mg/dL High 0.70-1.30 Glomerular Filtration Rate 26.1 Low >35 1 Sodium Level 138 mEq/L Normal 136-145 Potassium Serum 4.5 mEq/L Normal 3.5-5.1 Chloride Level 108 mEq/L High 98-107 Carbon Dioxide Level 24 mEq/L Normal 21-32 Anion Gap 6 mEq/L Low 8-16 Calcium Level 8.2 mg/dL Low 8.8-10.2 Ast/Sgot 42 U/L High 7-37 Alt/SGPT 25 U/L Normal 12-78 Alkaline Phosphatase 155 U/L High 45-117 Bilirubin,Total 0.9 mg/dL Normal 0.2-1.0 Total Protein 6.8 GM/DL Normal 6.4-8.2 Albumin 2.3 GM/DL Low 3.2-5.2 Albumin/Globulin Ratio 0.5 Normal Laboratory test finding 07/24/2020 [facility] [phone] NT-Pro BNP 344 pg/mL Normal <450 Immature Platelet Fraction 6.0 % Normal 0.0-10.91 CBC without Differential 05/30/2020 [facility] White Blood Count 5.8 Red Blood Count 3.70 Platelets 87 Hemoglobin 11.8 Hematocrit 36.0 Renal Profile 05/30/2020 [facility] Glucose 245 Blood Urea Nitrogen 27.5 Creatinine 2.0 GFR (Calculated) 32 Sodium 139 Potassium 3.95 Chloride 105.7 Carbon Dioxide 26.7 Calcium 7.9 Phosphorus 3.2 Albumin 2.7 Laboratory test finding 05/30/2020 [facility] Magnesium Level 2.08 Laboratory test finding 05/06/2020 [facility] [place] Magnesium Level <pending> NT-proBNP 271 pg/mL 0-486 2 CBC With Differential/Platelet 05/06/2020 [facility] [place] WBC 5.6 x10E3/uL 3.4-10.8 RBC 3.65 x10E6/uL Low 4.14-5.80 3 Hemoglobin 11.4 g/dL Low 13.0-17.7 Hematocrit 34.7 % Low 37.5-51.0 MCV 95 fL 79-97 MCH 31.2 pg 26.6-33.0 MCHC 32.9 g/dL 31.5-35.7 RDW 14.4 % 11.6-15.4 Platelets 91 x10E3/uL Critical low 150-450 4 Neutrophils 47 % Not Estab. Lymphs 40 % Not Estab. Monocytes 10 % Not Estab. Eos 2 % Not Estab. Basos 1 % Not Estab. Immature Cells TNP Neutrophils (Absolute) 2.7 x10E3/uL 1.4-7.0 Lymphs (Absolute) 2.2 x10E3/uL 0.7-3.1 Monocytes(Absolute) 0.6 x10E3/uL 0.1-0.9 Eos (Absolute) 0.1 x10E3/uL 0.0-0.4 Baso (Absolute) 0.0 x10E3/uL 0.0-0.2 Immature Granulocytes 0 % Not Estab. Immature Grans (Abs) 0.0 x10E3/uL 0.0-0.1 NRBC TNP Hematology Comments: Note: 5 Metabolic Panel (14), Comprehensive 05/06/2020 [facility] [place] Glucose 218 mg/dL High 65-99 BUN 26 mg/dL 8-27 Creatinine 2.05 mg/dL High 0.76-1.27 eGFR If NonAfricn Am 29 mL/min/1.73 Low >59 eGFR If Africn Am 34 mL/min/1.73 Low >59 BUN/Creatinine Ratio 13 10-24 Sodium 136 mmol/L 134-144 Potassium 4.6 mmol/L 3.5-5.2 Chloride 102 mmol/L 96-106 Carbon Dioxide, Total 24 mmol/L 20-29 Calcium 8.7 mg/dL 8.6-10.2 Protein, Total 6.4 g/dL 6.0-8.5 Albumin 2.8 g/dL Low 3.6-4.6 Globulin, Total 3.6 g/dL 1.5-4.5 A/G Ratio 0.8 Low 1.2-2.2 Bilirubin, Total 0.8 mg/dL 0.0-1.2 Alkaline Phosphatase 179 IU/L High 39-117 Ast (Sgot) 47 IU/L High 0-40 Alt (SGPT) 22 IU/L 0-44 Laboratory test finding 05/06/2020 [facility] [place] Magnesium 2.1 mg/dL 1.6-2.3 PDF [id number] SEE IMAGE 1 Units are mL/min/1.73 m2 Chronic Kidney Disease Staging per NKF: Stage I & II GFR >=60 Normal to Mildly Decreased Stage III GFR 30-59 Moderately Decreased Stage IV GFR 15-29 Severely Decreased Stage V GFR <15 Very Little GFR Left ESRD GFR <15 on DIRECTOR MEDICAL WRITING 2 The following cut-points hav e been suggested for the use of proBNP for the diagnostic evaluation of heart failure (HF) in patients with acute dyspnea: Modality Age Optimal Cut (years) Point Diagnosis (rule in HF) <50 450 pg/mL 50 - 75 900 pg/mL >75 1800 pg/mL Exclusion (rule out HF) Age independent 300 pg/mL 3 Ovalocytes present. 4 Platelet count verified by e xamination of peripheral blood smear. 5 Verified by microscopic exam ination. Procedures Date Code Description Status 06/11/2020 81452 Echocardiogram 2-D Doppler Color Completed Medical Devices Description No Information Available Encounters Description No Information Available Assessments Date Code Description Provider 06/11/2020 I50.42 Chronic combined systolic (conge stive) and diastolic (conges ECHO 06/11/2020 Z95.2 Presence of prosthetic heart jay ve ECHO 06/11/2020 I35.8 Other nonrheumatic aortic valve disorders ECHO 06/11/2020 R94.31 Abnormal electrocardiogram [ECG] [EKG] ECHO Plan of Treatment 12/19/2019 - Marcos Deng MD* I50.42 Chronic combined systolic (congestive) and diastolic (conges* Recommendations:* Schedule follow-up chest x-ray and blood work prior to his next office visit in May. Continued modest salt, caloric and fluid restriction. Have encouraged him to increase his activity as best he can. No change has been made to his current torsemide, spironolactone, magnesium, and potassium. Have requested that they contact us should he notice increasing shortness of breath, coughing while lying down or increasing lower leg swelling. * I49.3 Ventricular premature depolarization* Recommendations:* We will obtain a follow-up pulmonary function study at this time. Change has been made to his current low-dose amiodarone. Would encourage his continued avoiding of caffeinated beverages, alcohol, nicotine, [id number] decongestants etc. * I45.2 Bifascicular block* Recommendations:* We plan to continue to monitor his conduction disturbances. No pacemaker implantation is deemed necessary at this time. * I25.10 Atherosclerotic heart disease of [place] coronary artery with* Recommendations:* Encouraged continued dietary measures and regular low-level aerobic exercise, i.e. walking with his walker, rocking in a chair while watching television. No change would be advised to his atorvastatin and low- dose aspirin. Have encouraged him to contact us should he notice effort related chest, jaw, or arm discomfort. We'll be checking his liver function studies in May. * I11.0 Hypertensive heart disease with heart failure* Recommendations:* As per assessment #1 * I35.0 Nonrheumatic aortic (valve) stenosis* Recommendations:* No special measures beyond continued antibiotic prophylaxis for any surgical procedures. A followup complete blood count with differential will be obtained in May. * Z95.2 Presence of prosthetic heart valve* Recommendations:* We will obtain a follow-up echocardiogram/Doppler study to reassess his aortic valve in May. Understands the importance of antibiotic therapy prior to surgical procedures to protect his prosthetic valve. * Z71.3 Dietary counseling and surveillance* Recommendations:* Have encouraged avoiding carbohydrates (avoiding bread, potatoes, pasta, rice, fruit, candy, desserts, and beer etc.) along with his increased regular activity. * All * Comments:* I will ensure that the aforementioned test findings are reported to you along with any further recommendations. Thank you for allowing me to participate in the care of your patient. Best regards. * Follow up:* Will plan a follow-up appointment in May after blood work, chest x-ray, and echocardiogram. We would be pleased to reassess the patient at any time. Functional Status Functional Condition Comment Date Status Independent with all ADL's Activ e Requires assistance with ambulating uses walker Active Mental Status Description No Information Available Referrals Description No Information Available
--- OUTSIDE RECORDS SUMMARY | 2020-09-18 15:46 | CCD | Continuity of Care Document ---
Author Author Reese DENG MD Organization Unknown Address [place] [address] Phone [phone] Care Team Providers Care Certified Retinal Angiographer Name Role Phone Costa Camacho MD AUTM [phone] Adal Carreon MD AUTM [phone] Ravinder Barakat MD AUTM [phone] Problems Active Problems Provider Date Aortic valve disorder Marcos Deng MD Onset: 05/21/2017 Premature beats Marcos Deng [...] Test Result H/L Range Note CMP 07/24/2020 [facility] nter [phone] Glucose, Fasting 207 mg/dL High 70-100 Blood [...] Ratio 0.5 Normal Laboratory test finding 07/24/2020 [facility] [phone] NT-Pro BNP 344 pg/mL Normal <450 Immature [...] [facility] [place] Magnesium 2.1 mg/dL 1.6-2.3 PDF [id number] SEE IMAGE 1 Units are mL/min/1.73 m2 Chronic Kidney Disease Staging per NKF: Stage I & II GFR >=60 Normal to Mildly Decreased Stage III GFR 30-59 Moderately Decreased Stage IV GFR 15-29 Severely Decreased Stage V GFR <15 Very Little GFR Left ESRD GFR <15 on MOTORCYCLE SERVICE TECHNICIAN 2 The following cut-points hav e been [...] ination. Procedures Date Code Description Status 06/11/2020 23225 Echocardiogram 2-D Doppler Color Completed Medical Devices [...] continued avoiding of caffeinated beverages, alcohol, nicotine, [id number] decongestants etc. * I45.2 Bifascicular block* Recommendations:* We plan to continue to monitor his conduction disturbances. No pacemaker implantation is deemed necessary at this time. * I25.10 Atherosclerotic heart disease of [place] coronary artery with* Recommendations:* Encouraged continued dietary [...]
--- OUTSIDE RECORDS SUMMARY | 2020-09-18 15:46 | CCD | Continuity of Care Document ---
Author Organization Unknown Address Unknown Phone Unavailable Care Team Providers Care Chaser Tar Name Role Phone Costa Camacho MD AUTM [phone] Adal Carreon MD AUTM [phone] Ravinder Barakat MD AUTM [phone] Problems Active Problems Provider Date Aortic valve [...] 12/07/18 Patient is a former smoker [facility] smoking in teenage years, stopped over 30 [...] Date Facility Test Result H/L Range Note CBC without Differential 07/31/2020 [facility] White Blood Count 6.8 Red Blood Count 3.59 Platelets 114 Hemoglobin 11.4 Hematocrit 35.3 Renal Profile 07/31/2020 [facility] Glucose 240 Blood Urea Nitrogen 24.3 Creatinine 2.0 GFR (Calculated) 32 Sodium 132.5 Potassium 4.49 Chloride 98.3 Carbon Dioxide 26.7 Calcium 8.0 Phosphorus 2.6 Albumin 2.6 Laboratory test finding 07/31/2020 [facility] Magnesium Level 1.85 CMP 07/24/2020 [facility] nter [phone] Glucose, Fasting 207 mg/dL High 70-100 Blood [...] Ratio 0.5 Normal Laboratory test finding 07/24/2020 [facility] [phone] NT-Pro BNP 344 pg/mL Normal <450 Immature [...] [facility] [place] Magnesium 2.1 mg/dL 1.6-2.3 PDF [id number] SEE IMAGE Metabolic Panel (14), Comprehensive 05/06/2020 [facility] [...] High 0-40 Alt (SGPT) 22 IU/L 0-44 CBC With Differential/Platelet 05/06/2020 [facility] [place] WBC 5.6 x10E3/uL 3.4-10.8 RBC 3.65 x10E6/uL Low 4.14-5.80 2 Hemoglobin 11.4 g/dL Low 13.0-17.7 Hematocrit 34.7 % Low 37.5-51.0 MCV 95 fL 79-97 MCH 31.2 pg 26.6-33.0 MCHC 32.9 g/dL 31.5-35.7 RDW 14.4 % 11.6-15.4 Platelets 91 x10E3/uL Critical low 150-450 3 Neutrophils 47 % Not Estab. Lymphs 40 [...] x10E3/uL 0.0-0.1 NRBC TNP Hematology Comments: Note: 4 Laboratory test finding 05/06/2020 [facility] [place] Magnesium Level <pending> NT-proBNP 271 pg/mL 0-486 5 1 Units are mL/min/1.73 m2 Chronic Kidney Disease Staging per NKF: Stage I & II GFR >=60 Normal to Mildly Decreased Stage III GFR 30-59 Moderately Decreased Stage IV GFR 15-29 Severely Decreased Stage V GFR <15 Very Little GFR Left ESRD GFR <15 on OCCUPATIONAL MEDICINE PHYSICIAN 2 Ovalocytes present. 3 Platelet count verified by e xamination of peripheral blood smear. 4 Verified by microscopic exam ination. 5 The following cut-points hav e been suggested for the use of proBNP for the diagnostic evaluation of heart failure (HF) in patients with acute dyspnea: Modality Age Optimal Cut (years) Point Diagnosis (rule in HF) <50 450 pg/mL 50 - 75 900 pg/mL >75 1800 pg/mL Exclusion (rule out HF) Age independent 300 pg/mL Procedures Date Code Description Status 06/11/2020 29286 Echocardiogram 2-D Doppler Color Completed Medical Devices [...] continued avoiding of caffeinated beverages, alcohol, nicotine, [id number] decongestants etc. * I45.2 Bifascicular block* Recommendations:* We plan to continue to monitor his conduction disturbances. No pacemaker implantation is deemed necessary at this time. * I25.10 Atherosclerotic heart disease of [place] coronary artery with* Recommendations:* Encouraged continued dietary [...]
--- OUTSIDE RECORDS SUMMARY | 2020-09-18 15:46 | CCD ---
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 Has had PET scan. Stable by interview with the patient and his family today . Problem Anemia of renal disease D63.1 Active 98502897 4 He was on iron for unclear [...] mild anemia. Problem Gastroesophageal reflux K21.9 Active 22755987 4 He had an upper endoscopy in July 2009, apparently because of anemia. There was some gastritis seen on EGD and he was given intensified PPI therapy. He is asymptomatic at present and stopped his Protonix therapy in late 2012. Problem Cirrhosis of liver K74.60 Active 33841816 This is likely because of his prior [...] in February 2020. Problem Hypercholesterolemia E78.00 Active 09472443 On simvastatin and fenofibrate in the past [...] of aortic valve replacement Z95.2 Acti ve [id number] He had an aortic valve replacement for significant aortic stenosis in June 2017 and is doing fairly well from my standpoint; he had a follow-up echocardiogram in April 2018. 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 This is apparently not causing him any issues. Problem Slow transit constipation K59.01 Active 831461 07 He takes MiraLAX or Metamucil as needed. 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 He is followed closely by a retinal specialist now. He is receiving intravitreal injections with Eylea apparently about every 4 months as of late March 2019. Problem Chronic kidney disease, stage 3 (moderate) N18.3 Active 956149986 His renal function has been declining, and [...] other diabetic kid colin complication E11.29 Active 96360541 On Actos in the past, but this [...] endorgan complications. Problem Persistent proteinuria R80.1 Active 157899666 96135 This will be followed. He sees nephrology now also. 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 Repeat echocardiogram was done in April 2018, and revealed a left ventricular ejection fraction of 60% with mild LVH and grade 1 diastolic dysfunction as well as mild mitral regurgitation. 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 Sexual [...] REASON FOR REFERRAL No Information VITAL SIGNS No information MEDICATIONS Medication SIG (Take, Route, Frequency, Duration) Notes Start Da te End Date Status Januvia 50 MG 1 tablet Orally Once a day for 90 Active Flomax 0.4 MG 2 cap(s) Orally Once a day for 90 Active Albuterol Sulfate (2.5 MG/3ML) 0.083% 3 ml as needed I nhalation Twice aday, and every 4 hours as needed for 30 day(s) Apr, Active Colace 100 mg 1 capsule as needed Orally Once a day Active Spironolactone 25 mg 1 tablet Orally Once a day Active Metamucil 48.57 % Orally Every other day alternating with miralax Active MiraLax - Orally Every other day alternating with metamucil Active Multiple Vitamin - 1 tablet Orally Once a day Active Atorvastatin Calcium 40 MG 1 tablet Orally Once a day Active Amiodarone HCl 100 MG 1 tablet Orally Once a day Active Glimepiride 1 MG 1 tablet with breakfast or t he first main meal of the day Orally Once a day for 90 Active Aspirin 81 MG 1 tablet Orally Once a day Active Magnesium Oxide 400 MG 1 tablet Orally twice daily Active Potassium Chloride ER 10 MEQ 1 tablet with food Orally Once a day for 90 Active Levothyroxine Sodium 50 MCG 1 tablet on an empty stoma ch in the morning Orally Once a day for 90 Active Torsemide 10 MG 2 tablet Orally Daily Active Triamcinolone Acetonide 0.1 % 1 application to affecte d area Externally Twice a day to lower extremities for 30 day(s) Nov, Not-Taking PROCEDURES No Information RESULTS No Results REASON FOR VISIT lab order for September 2020 MEDICAL (GENERAL) HISTORY Type Description Date Medical [...] 2 stents placed and aortic jay ve replacement-[facility] 07/05/2017 Hospitalization History [facility] and aortic valve replac [facility] 07/05-07/09/2017 Goals Section No Information Health Concerns No Information MEDICAL EQUIPMENT No Information MENTAL STATUS No Information FUNCTIONAL STATUS No Information ASSESSMENTS Encounter Date Diagnosis Assessment Notes Treatment Notes Treatm ent Clinical Notes Jul, Type 2 diabetes mellitus wit h other diabetic kidney complication (ICD-10 - E11.29) On Actos in the past, but this was disco ntinued with his hospitalization in April 2013, and [...] is acceptable to minimize diabetic endorgan complications. Jul, Hypertension with renal disease (ICD-10 - I12.9) He is on spironolactone 12.5 mg daily and torsemide 20 mg daily. Repeat echocardiogram was done in April 2018, and revealed a left ventricular ejection fraction of 60% with mild LVH and grade 1 diastolic dysfunction as well as mild mitral regurgitation. Jul, Chronic kidney disease, stage 3 (moderat e) (ICD-10 - N18.3) His renal function has been declining, and he is now seeing nephrology. Most recent creatinine was stable at 2.2 with a GFR of 27 in February 2020, versus a creatinine of 1.91 with a GFR of 32 in March 2019, 2.05 with a GFR of 29 in September 2019. Bilateral renal cortical thickening was seen on ultrasound in 2019, per nephrology. Jul, Hypercholesterolemia (ICD-10 - E78.00) O n simvastatin and fenofibrate in the past and I restarted just a statin in 06/2013; he was switched to atorvastatin in 2014 and he takes 40 mg daily. His triglycerides are just mildly elevated as of September 2019 but his LDL meets secondary prevention targets. He may need Vascepa added to his regimen in the future. Jul, Cirrhosis of liver (ICD-10 - K74.60) Thi s is likely because of his prior alcohol [...] in September 2019, 90,000 in February 2020. Jul, Senile dementia, uncomplicated (ICD-10 - F03.90) In the past she was seen at [facility] disorders clinic in [place] in 2005. Has had PET scan. Stable by interview with the patient and his family today . Jul, Gastroesophageal reflux (ICD-10 - K21.9) He had an upper endoscopy in July 2009, apparently because of anemia. There was some gastritis seen on EGD and he was given intensified PPI therapy. He is asymptomatic at present and stopped his Protonix therapy in late 2012. Jul, Anemia of renal disease (ICD-10 - D63.1) He was on iron for unclear reasons, [...] insufficiency is contributing to his mild anemia. Jul, Hypersplenism (ICD-10 - D73.1) He has a history of thrombocytopenia on [...] in September 2019, 90,000 in February 2020. Jul, History of congestive heart failure (ICD -10 - Z86.79) He was felt to have some congestive [...] while seated and well-functioning aortic valve bioprosthesis. Jul, History of aortic valve replacement (ICD-10 - Z9 5.2) Jul, Slow transit constipation (ICD-10 - K59. 01) He takes MiraLAX or Metamucil as needed. Jul, Persistent proteinuria (ICD-10 - R80.1) This will be followed. He sees nephrology now also. Jul, Drug-induced hypothyroidism (ICD-10 - E0 3.2) He had an elevated TSH in the 5+ range in April 2018 but he then developed overt hypothyroidism with TSH of 12.2 in November 2018. He was started on thyroid replacement therapy; he had a dose increase to 50 mcg daily in March 2019 but as of every 2019 TSH remains high at 5.7 and the dose was increased to 75 mcg daily. Jul, Central retinal vein occlusi on with macular edema of left eye (ICD- 10 - H34.8120) He was identified as having this by his cylinder block hole reliner in March 2019. He is followed closely by a retinal specialist now. He is receiving intravitreal injections with Eylea apparently about every 4 months as of late March 2019. PLAN OF TREATMENT Medication Medication Name Sig Start Date Stop Date Glimepiride 1 MG 1 tablet with breakfast or t he first main meal of the day Orally Once a day for 90 Levothyroxine Sodium 50 MCG 1 tablet on an empty stoma ch in the morning Orally Once a day for 90 Flomax 0.4 MG 2 cap(s) Orally Once a day for 90 Potassium Chloride ER 10 MEQ 1 tablet with food Orally Once a da y for 90 Januvia 50 MG 1 tablet Orally Once a day for 90 Future Test Test Name Order Date HEMOGLOBIN A1c [id number] Comprehensive Metabolic Profile (CMP) [id number] MAGNESIUM LEVEL [id number] TSH [id number] LIPID PANEL (CARDIAC RISK) [id number] CBC with Differential [id number] Next Appt Details Provider Name:Costa Camacho, 2020-09-17 07 :30:00 AM, [facility] [place], [address], Insurance Providers Payer Name Payer Address Payer Phone Insured Name Patient Relati onship to Insured Coverage Start Date Coverage End Date [facility] [address] [id number] [facility] [id number] DEBBIE EUCEDA self MEDICARE Part A and B [address] [facility] [address] DEBBIE EUCEDA self
--- OUTSIDE RECORDS SUMMARY | 2020-09-18 15:46 | CCD ---
Continuity of Care Document (CCD) Created on: 07/25/2020 Reese Cantu External Reference #: [id number] : 1935 Sex: Male Author Author Reese DENG MD Organization Unknown Address [facility] [place] [address] Phone [phone] Care Team Providers Care Trailhead Maintenance Worker Name Role Phone Costa Camacho MD AUTM [phone] Adal Carreon MD [facility] [phone] Ravinder Barakat MD [facility] [phone] Problems Active Problems Provider Date Aortic valve [...] Test Result H/L Range Note CMP 07/24/2020 [facility] nter [phone] Glucose, Fasting 207 mg/dL High 70-100 Blood [...] Ratio 0.5 Normal Laboratory test finding 07/24/2020 [facility] [phone] NT-Pro BNP 344 pg/mL Normal <450 Immature [...] [facility] Magnesium 2.1 mg/dL 1.6-2.3 PDF [id number] SEE IMAGE 1 Units are mL/min/1.73 m2 Chronic Kidney Disease Staging per NKF: Stage I & II GFR >=60 Normal to Mildly Decreased Stage III GFR 30-59 Moderately Decreased Stage IV GFR 15-29 Severely Decreased Stage V GFR <15 Very Little GFR Left ESRD GFR <15 on CO[employer] 2 The following cut-points hav e been [...] ination. Procedures Date Code Description Status 06/11/2020 35427 Echocardiogram 2-D Doppler Color Completed Medical Devices [...] continued avoiding of caffeinated beverages, alcohol, nicotine, pmqm-wjr-oipvlio decongestants etc. * I45.2 Bifascicular block* Recommendations:* We plan to continue to monitor his conduction disturbances. No pacemaker implantation is deemed necessary at this time. * I25.10 Atherosclerotic heart disease of [place] coronary artery with* Recommendations:* Encouraged continued dietary [...]
--- OUTSIDE RECORDS SUMMARY | 2020-09-18 15:46 | CCD ---
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 Has had PET scan. Stable by interview with the patient and his family today . Problem Anemia of renal disease D63.1 Active 75425272 4 He was on iron for unclear [...] mild anemia. Problem Gastroesophageal reflux K21.9 Active 30614414 4 He had an upper endoscopy in July 2009, apparently because of anemia. There was some gastritis seen on EGD and he was given intensified PPI therapy. He is asymptomatic at present and stopped his Protonix therapy in late 2012. Problem Cirrhosis of liver K74.60 Active 04727231 This is likely because of his prior [...] in February 2020. Problem Hypercholesterolemia E78.00 Active 02435632 On simvastatin and fenofibrate in the past [...] of aortic valve replacement Z95.2 Acti ve [id number] He had an aortic valve replacement for significant aortic stenosis in June 2017 and is doing fairly well from my standpoint; he had a follow-up echocardiogram in April 2018. 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 This is apparently not causing him any issues. Problem Slow transit constipation K59.01 Active 325412 07 He takes MiraLAX or Metamucil as needed. 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 He is followed closely by a retinal specialist now. He is receiving intravitreal injections with Eylea apparently about every 4 months as of late March 2019. Problem Chronic kidney disease, stage 3 (moderate) N18.3 Active 437133796 His renal function has been declining, and [...] other diabetic kid colin complication E11.29 Active 86441037 On Actos in the past, but this [...] endorgan complications. Problem Persistent proteinuria R80.1 Active 685104210 59570 This will be followed. He sees nephrology now also. Problem History of congestive heart failure Z86.79 Acti ve 310308264 He was felt to have some congestive [...] Problem Hypertension with renal disease I12.9 Active 85771867 He is on spironolactone 12.5 mg daily and torsemide 20 mg daily. Repeat echocardiogram was done in April 2018, and revealed a left ventricular ejection fraction of 60% with mild LVH and grade 1 diastolic dysfunction as well as mild mitral regurgitation. ALLERGIES No Known Allergies ENCOUNTERS from 1935 to 2020-07-25 Encounter Location Date Provider Diagnosis [facility] [place] [address] Jul, [facility] IMMUNIZATIONS Vaccine Route Administration Date Status Influenza (Pharmacy Given) Unknown Jun 13, 2019 Admin istered Zoster 50mcg/0.5mL (Shingrix) Unknown February 12, 2020 Ad ministered Influenza (High Dose 65 & up) Unknown Jun 01, 2018 Ad ministered Influenza (High Dose 65 & up) Unknown Jun 05, 2016 Ad ministered Pneumococcal Adult 0.5mL (Pneumovax 23) Unknown Sep 16, 2006 Administered Influenza (6mo & up) Fluzone Unknown Apr 27, 2013 Adm inistered Influenza (6mo & up) Fluzone Unknown Jun 26, 2015 Adm inistered Influenza (6mo & up) Fluzone Unknown May 25, 2012 Adm inistered TD Adult 0.5mL (Tetanus) Unknown December 29, 2007 Adminis tered Influenza (6mo & up) Fluzone Unknown Apr 23, 2011 Adm inistered Pneumococcal 0.5mL (Prevnar 13) IM Intramuscular March 03, 2016 Administered Influenza (6mo & up) Fluzone Unknown Apr 23, 2010 Adm inistered SOCIAL HISTORY Sex Assigned At : Social History Observation Description Sex Assigned At Unknown Audit Question Answer Notes Total Score: 0 Interpretation: Alcohol Education Language: Question Answer Notes Languages spoken: Luxembourgish Jehovah'S Witness: Question Answer Notes Jehovah'S Witness No latter-day beliefs that would impact health care. Sexual [...] Notes Start Da te End Date Status Colace 100 mg 1 capsule as needed Orally Once a day Active Glimepiride 1 MG 1 tablet with breakfast or t he first main meal of the day Orally Once a day for 90 Active Spironolactone 25 mg 1 tablet Orally Once a day Active Levothyroxine Sodium 50 MCG 1 tablet on an empty stoma ch in the morning Orally Once a day for 90 Active Magnesium Oxide 400 MG 1 tablet Orally twice daily Active Aspirin 81 MG 1 tablet Orally Once a day Active Flomax 0.4 MG 2 cap(s) Orally Once a day for 90 Active Januvia 50 MG 1 tablet Orally Once a day for 90 Active Potassium Chloride ER 10 MEQ 1 tablet with food Orally Once a day for 90 Active MiraLax - Orally Every other day alternating with metamucil Active Multiple Vitamin - 1 tablet Orally Once a day Active Triamcinolone Acetonide 0.1 % 1 application to affecte d area Externally Twice a day to lower extremities for 30 day(s) Nov, Not-Taking Torsemide 10 MG 2 tablet Orally Daily Active Metamucil 48.57 % Orally Every other day alternating with miralax Active Amiodarone HCl 100 MG 1 tablet Orally Once a day Active Albuterol Sulfate (2.5 MG/3ML) 0.083% 3 ml as needed I nhalation Twice aday, and every 4 hours as needed for 30 day(s) Apr, Active Atorvastatin Calcium 40 MG 1 tablet Orally Once a day Active PROCEDURES No Information RESULTS No Results REASON FOR VISIT Abdominal bloating MEDICAL (GENERAL) HISTORY Type Description Date Medical [...] 2 stents placed and aortic jay ve replacement-[facility] 07/05/2017 Hospitalization History [facility] and aortic valve replac [facility] 07/05-07/09/2017 Goals Section No Information Health Concerns No Information MEDICAL EQUIPMENT No Information MENTAL STATUS No Information FUNCTIONAL STATUS No Information ASSESSMENTS No Information PLAN OF TREATMENT Next Appt Details Provider Name:Costa Camacho, 2020-09-17 07 :30:00 AM, [address] [place], [address], Insurance Providers Payer Name Payer Address Payer Phone Insured Name Patient Relati onship to Insured Coverage Start Date Coverage End Date MEDICARE Part A and B [address] [facility] [phone] DEBBIE EUCEDA self [facility] [address] [address] [facility] [phone] DEBBIE EUCEDA self
--- OUTSIDE RECORDS SUMMARY | 2020-09-18 15:47 | CCD ---
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 Role Phone Juan Antonio ANAYA MD Unavailable Unavailable Juan Antonio ANAYA MD Unavailable Unavailable Juan Antonio ANAYA MD Unavailable Unavailable Juan Antonio ANAYA MD Unavailable Unavailable Juan Antonio ANAYA MD Unavailable Unavailable Juan Antonio ANAYA MD Unavailable Unavailable Juan Antonio ANAYA MD Unavailable Unavailable Juan Antonio ANAYA MD Unavailable Unavailable Juan Antonio ANAYA MD Unavailable Unavailable Juan Antonio ANAYA MD Unavailable Unavailable Juan Antonio ANAYA MD Unavailable Unavailable Juan Antonio ANAYA MD Unavailable Unavailable Juan Antonio ANAYA MD Unavailable Unavailable Juan Antonio ANAYA MD Unavailable Unavailable Juan Antonio ANAYA MD Unavailable Unavailable Juan Antonio ANAYA MD Unavailable Unavailable Juan Antonio ANAYA MD Unavailable Unavailable Juan Antonio ANAYA MD Unavailable Unavailable Juan Antonio ANAYA MD Unavailable Unavailable Juan Antonio ANAYA MD Unavailable Unavailable Juan Antonio ANAYA MD Unavailable Unavailable Juan Antonio ANAYA MD Unavailable Unavailable Juan Antonio ANAYA MD Unavailable Unavailable Juan Antonio ANAYA MD Unavailable Unavailable Juan Antonio ANAYA MD Unavailable Unavailable Juan Antonio ANAYA MD Unavailable Unavailable Juan Antonio ANAYA MD Unavailable Unavailable Juan Antonio ANAYA MD Unavailable Unavailable Juan Antonio ANAYA MD Unavailable Unavailable Juan Antonio ANAYA MD Unavailable Unavailable ANAYA, E ANAYELI MD Unavailable Unavailable ANAYA, E ANAYELI MD Unavailable Unavailable ANAYA, E ANAYELI MD Unavailable Unavailable ANAYA, E ANAYELI MD Unavailable Unavailable ANAYA, E ANAYELI MD Unavailable Unavailable ANAYA, E ANAYELI MD Unavailable Unavailable ANAYA, E ANAYELI MD Unavailable Unavailable ANAYA, E ANAYELI MD Unavailable Unavailable ANAYA, E ANAYELI MD Unavailable Unavailable ANAYA, E ANAYELI MD Unavailable Unavailable ANAYA, E ANAYELI MD Unavailable Unavailable ANAYA, E ANAYELI MD Unavailable Unavailable ANAYA, E ANAYELI MD Unavailable Unavailable ANAYA, E ANAYELI MD Unavailable Unavailable ANAYA, E ANAYELI MD Unavailable Unavailable ANAYA, E ANAYELI MD Unavailable Unavailable AANYA, E ANAYELI MD Unavailable Unavailable ANAYA, E ANAYELI MD Unavailable Unavailable ANAYA, E ANAYELI MD Unavailable Unavailable ANAYA, E ANAYELI MD Unavailable Unavailable ANAYA, E ANAYELI MD Unavailable Unavailable ANAYA, E ANAYELI MD Unavailable Unavailable ANAYA, E ANAYELI MD Unavailable Unavailable ANAYA, E ANAYELI MD Unavailable Unavailable ANAYA, E ANAYELI MD Unavailable Unavailable ANAYA, E ANAYELI MD Unavailable Unavailable ANAYA, E ANAYELI MD Unavailable Unavailable Re-disclosure Warning The records that you are about to access may contain information from federally-assisted alcohol or drug abuse programs. If such information is present, then the following federally mandated warning applies: This information has been disclosed to you from records protected by federal confidentiality rules (42 CFR part 2). The federal rules prohibit you from making any further disclosure of this information unless further disclosure is expressly permitted by the written consent of the person to whom it pertains or as otherwise permitted by 42 CFR part 2. A general authorization for the release of medical or other information is NOT sufficient for this purpose. The Federal rules restrict any use of the information to criminally investigate or prosecute any alcohol or drug abuse patient.The records that you are about to access may contain highly sensitive health information, the redisclosure of which is protected by Article 27-F of the [facility] Public Health law. If you continue you may have access to information: Regarding HIV / AIDS; Provided by facilities licensed or operated by the [facility] Office of Mental Health; or Provided by the [facility] Office for People With Developmental Disabilities. If such information is present, then the following [facility] mandated warning applies: This information has been disclosed to you from confidential records which are protected by state law. State law prohibits you from making any further disclosure of this information without the specific written consent of the person to whom it pertains, or as otherwise permitted by law. Any unauthorized further disclosure in violation of state law may result in a fine or prison sentence or both. A general authorization for the release of medical or other information is NOT sufficient authorization for further disc losure. Allergies and Adverse Reactions Type Description Substance Reaction Status Data Source(s ) Drug Class NO KNOWN ALLERGIES NO KNOWN ALLERGIES [facility] Family History Family Member Name Family Member Gender Family Member Status Date o f Status Description Data Source(s) Unknown Male Problem [facility] ([facility] from complications Unknown Male Problem [facility] ([facility] Unknown Female Problem [facility] ([facility] () - mother dm in her 70's Encounters Encounter Providers Location Date Indications Data Source(s ) Outpatient [address] [facility] [id number] 08/13/2020 12:00:00 AM EST eCW1 ([facility] Unknown [address] [facility] [address] 07/24/2020 12:00:00 AM EST [facility] Unknown [address] [facility] [address] 07/22/2020 12:00:00 AM EST [facility] [address] [facility] [address] 03/20/2020 12:00:00 AM EDT [facility]CW1 ([facility]) Outpatient Attender: ANAYELI ANAYA MD Main Office 12/19/2019 12:15:00 PM EDT [facility] ([facility] [place] [address] [facility] [address] 10/06/2019 12:00:00 AM EST [facility]CW[facility] [address] [facility] [address] 10/03/2019 12:00:00 AM EST [facility] [place] Outpatient Attender: ANAYELI ANAYA MD Main Office 09/14/2019 11:15:00 AM EST [facility] ([facility] Immunizations Vaccine Date Status Description Data Source(s) INFLUENZA VIRUS VACCINE QUADRIVAL SPLIT 2020-21(65 YR UP)/PF 04/09/2020 12:00:00 AM EDT completed [facility] VARICELLA-ZOSTER VIRUS GLYCOPROTEIN E,REC/AS01B ADJUVA NT/PF 04/09/2020 12:00:00 AM EDT completed [facility] Zoster 50mcg/0.5mL (Shingrix) 02/12/2020 08:22:00 AM EDT completed eCW1 ([facility]) Zoster 50mcg/0.5mL (Shingrix) 02/12/2020 08:22:00 AM EDT completed eCW1 ([facility]) Zoster 50mcg/0.5mL (Shingrix) 02/12/2020 08:22:00 AM EDT completed eCW1 ([facility]) VARICELLA-ZOSTER VIRUS GLYCOPROTEIN E,REC/AS01B ADJUVA NT/PF 02/12/2020 12:00:00 AM EDT completed [facility] Medications Medication Brand Name Start Date Product Form Dose Route Admi nistrative Instructions Pharmacy Instructions Status Indications Reaction Description Data Source(s) 500 mg 09/16/2020 12:00:00 AM EST tablet 10 TAKE ONE TABLET BY MOUTH EVERY DAY TAKE ONE TABLET BY MOUTH EVERY DAY SOLD: 09/16/2020 [facility] 2 mg 09/16/2020 12:00:00 AM EST tablet 21 TAKE THREE TABLETS BY MOUTH EVERY DAY WITH FOOD TAKE THREE TABLETS BY MOUTH EVERY DAY WITH FOOD SOLD: 2020 [facility] 40 mg 09/16/2020 12:00:00 AM EST tablet 20 TAKE ONE TABLET BY MOUTH EVERY DAY TAKE ONE TABLET BY MOUTH EVERY DAY SOLD: 09/16/2020 [facility] May Have - UNK 08/13/2020 12:00:00 AM EST active May [facility] - eCW1 ([facility]) 500-125 mg 07/31/2020 12:00:00 AM EST tablet 10 TAKE ONE TABLET BY MOUTH TWICE A DAY FOR 5 DAYS TAKE ONE TABLET BY MOUTH TWICE A DAY FOR 5 DAYS SOLD: 07/31/2020 [facility] 500-125 mg 07/26/2020 12:00:00 AM EST tablet 10 TAKE ONE TABLET BY MOUTH TWICE A DAY FOR 5 DAYS TAKE ONE TABLET BY MOUTH TWICE A DAY FOR 5 DAYS SOLD: 07/26/2020 [facility] 250 mg 07/01/2020 12:00:00 AM EST tablet 10 TAKE ONE TABLET BY MOUTH TWICE A DAY FOR 5 DAYS TAKE ONE TABLET BY MOUTH TWICE A DAY FOR 5 DAYS SOLD: 2019 [facility] 0.25 mcg 05/30/2020 12:00:00 AM EDT capsule 12 TAKE1 CAPSULE BY MOUTH WEDNESDAY, WEDNESDAY, WEDNESDAY TAKE1 CAPSULE BY MOUTH WEDNESDAY, WEDNESDAY, WEDNESDAY SOLD: 08/02/2020 [facility] 0.25 mcg 05/30/2020 12:00:00 AM EDT capsule 12 TAKE1 CAPSULE BY MOUTH WEDNESDAY, WEDNESDAY, WEDNESDAY TAKE1 CAPSULE BY MOUTH WEDNESDAY, WEDNESDAY, WEDNESDAY SOLD: 05/31/2020 [facility] 0.25 mcg 05/30/2020 12:00:00 AM EDT capsule 12 TAKE1 CAPSULE BY MOUTH WEDNESDAY, WEDNESDAY, WEDNESDAY TAKE1 CAPSULE BY MOUTH WEDNESDAY, WEDNESDAY, WEDNESDAY SOLD: 07/03/2020 [facility] 75 mcg 10/03/2019 12:00:00 AM EST tablet 30 TAKE ONE TABLET BY MOUTH EVERY MORNING ON AN EMPTY STOMACH TAKE ONE TABLET BY MOUTH EVERY MORNING O N AN EMPTY STOMACH SOLD: 08/02/2020 [facility] 75 mcg 10/03/2019 12:00:00 AM EST tablet 30 TAKE ONE TABLET BY MOUTH EVERY MORNING ON AN EMPTY STOMACH TAKE ONE TABLET BY MOUTH EVERY MORNING O N AN EMPTY STOMACH SOLD: 10/05/2019 [facility] Amiodarone hydrochloride 100 MG Oral Tablet Amiodarone HCL 09/14/2019 12:00:00 AM EST ORAL active [facility] ([facility] Insurance Providers Payer name Policy type / Coverage type Policy ID Covered alliance party ID Covered alliance party's relationship to unger Policy Unger Plan Information SELF PAY ONLY [id number] SP [id number] [facility] [id number] SP [id number] MEDICARE [id number] SP [id number] MEDICARE C [id number] S [id number] N72 R O [id number] S [id number] MEDICARE A [id number] Self [id number] A Umr Medigap Part B [id number] Self 1931 [id number] Medicare (Part B) Medicare Primary [id number] Self [id number] [employer] [facility] Ppo Medigap Part B [id number] Self [id number] r Medigap Part B [id number] Self [id number] Medicare (Part B) Medicare Primary [id number] Self [id number] ANSI-Medicare Part B [id number] ANSI-Commercial [id number] ANSI-Commercial [id number] ANSI-Medicare Part B [id number] ANSI-Commercial [id number] ANSI-Commercial [id number] ANSI-Commercial [id number] ANSI-Commercial [id number] ANSI-Medicare Part B [id number] ANSI-Commercial [id number] ANSI-Commercial [id number] ANSI-Medicare Part B [id number] [facility] Part B [id number] Self 1931 Medicare (Part B) Medicare Primary [id number] Self [id number] [id number] Self 1931 Medicare (Part B) Medicare Primary [id number] Self [id number] Medicare [facility] Part B [id number] Self [id number] Umr Commercial [id number] Se [id number] [id number] Medicare Medicare Primary [id number] Self [id number] MEDICARE C [id number] S [id number] [facility] [id number] Self 1931 Medicare (Part B) Medicare Primary [id number] Self [id number] ANSI-Medicare Part B [id number] ANSI-Commercial [id number] ANSI-Commercial [id number] [facility] Part B [id number] Self [id number] Medicare (Part B) Medicare Primary [id number] Self [id number] [facility] Part B [id number] Self [id number] Medicare (Part B) Medicare Primary [id number] Self [id number] ANSI-Medicare Part B [id number] ANSI-Commercial [id number] ANSI-Commercial [id number] ANSI-Medicare Part B [id number] ANSI-Commercial [id number] ANSI-Commercial [id number] ANSI-Commercial [id number] ANSI-Medicare Part B [id number] ANSI-Commercial [id number] ANSI-Medicare Part B [id number] ANSI-Commercial [id number] ANSI-Commercial [id number] MEDICARE [id number] SP [id number] [facility] [id number] SP [id number] MEDICARE [id number] SP [id number] A r Medigap Part B [id number] Self 1932 [id number] Medicare (Part B) Medicare Primary [id number] Self [id number] ANSI-Commercial [id number] ANSI-Commercial [id number] ANSI-Medicare Part B [id number] Medicare [facility] Medigap Part B [id number] Self [id number] Umr Commercial [id number] Se [id number] [id number] Medicare Medicare Primary [id number] Self [id number] r Medigap Part B [id number] Self 1932 [id number] Medicare (Part B) Medicare Primary [id number] Self [id number] r Medigap Part B [id number] Self [id number] Medicare (Part B) Medicare Primary [id number] Self [id number] [employer] PPO O [id number] S [id number] ANSI-Medicare Part B [id number] ANSI-Commercial [id number] ANSI-Commercial [id number] [facility] Medigap Part B [id number] Self [id number] Medicare (Part B) Medicare Primary [id number] Self [id number] Medicare (Part B) Medicare Primary [id number] Self [id number] [facility] [facility] Ppo Medigap Part B [id number] Self [id number] [employer] [id number] SP [id number] [employer] [id number] SP [id number] MEDICARE [id number] SP [id number] A Medicare (Part B) Medicare Primary [id number] Self [id number] [employer] U [id number] Self [id number] [employer] U [id number] Self [id number] [employer] [id number] [place] [id number] MEDICARE [id number] [place] [id number] A MEDICARE PI PI [employer] PI PI [employer] [facility] Ppo Medigap Part B [id number] Self [id number] Medicare (Part B) Medicare Primary [id number] Self [id number] Medicare Dme Medigap Part B [id number] Self [id number] [employer] Medigap Part B [id number] Self [id number] Medicare Medicare Primary [id number] Self [id number] [employer] Medigap Part B Self Medicare Medicare Primary Self [employer] [facility] [employer] [id number] SP [id number] Problems, Conditions, and Diagnoses Code Display Name Description Problem Type Effective Dates Data Source(s) 114825410 Dietary management surveillance Dietary manageme nt surveillance Problem 12/19/2019 12:00:00 AM EDT MED[facility] ([facility]) 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 09/14/2019 12:00:00 AM EST [facility] ([facility]) Surgeries/Procedures Procedure Description Date Indications Data Source(s) Injection, triamcinolone acetonide, not otherwise specified , 10 mg 08/13/2020 12:00:00 AM EST eCW1 ([facility]) ECHO TTHRC R-T 2D W/WOM-MODE COMPL SPEC&COLR DOP 06/11 12:00:00 AM EDT MEDENT ([facility]) DEBRIDEMENT NAIL ANY METHOD 03/05/2020 12:00:00 AM EDT [facility] ECG ROUTINE ECG W/LEAST 12 LDS W/I&R 12/19/2019 12:00: 00 AM EDT MED[facility] ([facility]) PARING/CUTTING BENIGN HYPERKERATOTIC LESION 2-4 2019 12:00:00 AM EST [facility] ([facility] DEBRIDEMENT NAIL ANY METHOD 10/10/2019 12:00:00 AM EST [facility] ([facility] XTRNL ECG < 48 HR RECORDING 10/10/2019 12:00:00 AM EST MED[facility] ([facility]) XTRNL ECG CONTINUOUS RHYTHM PHYS REVIEW&INTERPJ 2019 12:00:00 AM EST MEDENT ([facility]) Annual wellness visit, includes a person alized prevention plan of service (pps), subsequent visit 10/03/2019 12:00:00 AM EST eCW1 ([facility]) Office Visit, Est Pt., Level 4 PC 10/03/2019 12:00:00 AM EST eCW1 ([facility]) Office Visit, Est Pt., Level 2 FC 10/03/2019 12:00:00 AM EST eCW1 ([facility]) DESTROY BENIGN/PREMLG LESION 10/03/2019 12:00:00 AM ES T eCW1 ([facility]) ECG ROUTINE ECG W/LEAST 12 LDS W/I&R 09/14/2019 12:00: 00 AM EST MEDENT ([facility]) Results ID Date Data Source [id number] 09/10/2020 07:46:00 AM EST [facility] ([facility] Name Value Range Interpretation Code Description Data Geraldine rce(s) Supporting Document(s) Magnesium Level 2.47 [facility] ([facility] ID Date Data Source [id number] 09/10/2020 07:46:00 AM EST [facility] ([facility] Name Value Range Interpretation Code Description Data Geraldine rce(s) Supporting Document(s) Glucose 161 [facility] ([facility] Blood Urea Nitrogen 30.9 [facility] ([facility] Creatinine 2.0 [facility] ([facility]) Sodium 139.6 [facility] ([facility] Glomerular filtration rate/1.73 sq M.pre dicted [Volume Rate/Area] in Serum or Plasma by Creatinine-based formula (MDRD) 32 [facility]) Potassium 4.58 [facility] Carbon Dioxide 26.9 [facility] ([facility] Chloride 104.1 [facility] Phosphorus 3.2 [facility] ([facility]) Calcium 7.8 [facility] Albumin 2.8 [facility] ID Date Data Source [id number] 09/10/2020 07:46:00 AM EST [facility] ([facility] Name Value Range Interpretation Code Description Data Geraldine rce(s) Supporting Document(s) Red Blood Count 3.12 [facility] ([facility] White Blood Count 5.0 [facility] ([facility] Hemoglobin 10.2 [facility] ([facility]) Platelets 87 [facility] ([facility] Hematocrit 31.3 [facility] ([facility]) ID Date Data Source [id number] 09/10/2020 07:46:00 AM EST [facility] ([facility]) Name Value Range Interpretation Code Description Data Geraldine rce(s) Supporting Document(s) Iron 38 [facility] ([facility] Iron binding capacity [Mass/volume] in Serum or Plasma 283 [facility] ([facility] Tibc % Saturation 13.4 [facility] ([facility] ID Date Data Source [id number] 09/10/2020 07:46:00 AM EST [facility] ([facility]) Name Value Range Interpretation Code Description Data Geraldine rce(s) Supporting Document(s) Natriuretic peptide.B prohormone N-Terminal [Mass/volu me] in Serum or Plasma 541 [facility] ([facility] ID Date Data Source [id number] 07/31/2020 03:10:00 PM EST [facility] ([facility]) Name Value Range Interpretation Code Description Data Geraldine rce(s) Supporting Document(s) Magnesium Level 1.85 [facility] ([facility] ID Date Data Source [id number] 07/31/2020 03:10:00 PM EST [facility] ([facility]) Name Value Range Interpretation Code Description Data Geraldine rce(s) Supporting Document(s) Blood Urea Nitrogen 24.3 [facility] ([facility] Glucose 240 [facility] ([facility] Glomerular filtration rate/1.73 sq M.pre dicted [Volume Rate/Area] in Serum or Plasma by Creatinine-based formula (MDRD) 32 [facility] ([facility]) Creatinine 2.0 [facility] ([facility] Sodium 132.5 [facility] Potassium 4.49 [facility] Chloride 98.3 [facility] Carbon Dioxide 26.7 [facility] ([facility] Phosphorus 2.6 [facility] ([facility]) Calcium 8.0 [facility] ([facility] Albumin 2.6 [facility] ID Date Data Source [id number] 07/31/2020 03:10:00 PM EST [facility] ([facility] Name Value Range Interpretation Code Description Data Geraldine rce(s) Supporting Document(s) White Blood Count 6.8 [facility] ([facility] Red Blood Count 3.59 [facility] ([facility] Platelets 114 [facility] ([facility]) Hemoglobin 11.4 [facility] ([facility]) Hematocrit 35.3 [facility] ([facility]) ID Date Data Source [id number] 07/25/2020 12:00:00 AM EST [facility] Anayeli Anaya MD Patient Name: DEBBIE EUCEDA [id number] Q-Sensei Kirby A Date of : 1935[place] [address] Date of Exam: 07/25/2020#: Fax: [phone] EXAM: CHEST (2 VIEW) X-RAYCLINICAL INFORMATION: Dyspnea.Two views.Comparison 06/09/2019.There is no change since the prior study with no evidence of acuteinfiltrate. There is some minor fibroatelectatic change in each lung base. The heart is at the upper limits of normal in size with mild leftventricular prominence. There is mild calcification and tortuosity of thethoracic aorta. The mediastinal silhouette is unchanged. Multiple kirby rnalwires and mediastinal clips are present. There are diffuse degenerativechanges of the spine.IMPRESSION:Stable chronic findings. No acute infiltrate.Corey Montanez, LEON/Rasta you for referring DEBBIE EUCEDA to our office.Electronically Signed - COREY MONTANEZ MD 07/25/20 16:42 Name Value Range Interpretation Code Description Data Geraldine rce(s) Supporting Document(s) ID Date Data Source [id number] 07/24/2020 11:08:00 AM EST [facility] ([facility] [place] Name Value Range Interpretation Code Description Data Geraldine rce(s) Supporting Document(s) Platelets reticulated/100 platelets in Blood by Automated count 6.0 % 0.0-10.91 [facility] ([facility]) Natriuretic peptide.B prohormone N-Terminal [Mass/volu me] in Serum or Plasma 344 pg/mL [facility] ([facility]) ID Date Data Source [id number] 07/24/2020 11:08:00 AM EST [facility] ([facility] [place]) Name Value Range Interpretation Code Description Data [facility] rce(s) Supporting Document(s) Glucose, Fasting 207 mg/dL 70-100 [facility] ([facility]) Blood Urea Nitrogen 27 mg/dL 7-18 [facility] ([facility]) Creatinine For GFR 2.52 mg/dL 0.70-1.30 [facility] ([facility]) Sodium Level 138 meq/L 136-145 [facility] ([facility]) Glomerular Filtration Rate 26.1 [facility] ([facility]) <content>Units are mL/min/1.73 m2</content>
<content></content>
<content>Chronic Kidney Disease Staging per NKF:</content>
<content></content>
<content>Stage I & II GFR >=60 Normal to Mildly Decreased</content>
<content>Stage III GFR 30- 59 Moderately Decreased</content>
<content>Stage IV GFR 15-29 Severely Decreased</content>
<content>Stage V GFR <15 Very Little GFR Left</content>
<content>ESRD GFR <15 on [employer]</content>
<content></content> Potassium Serum 4.5 meq/L 3.5-5.1 [facility] ([facility] Chloride Level 108 meq/L 98-107 [facility] ([facility]) Calcium Level 8.2 mg/dL 8.8-10.2 [facility] ([facility]) Carbon Dioxide Level 24 meq/L 21-32 [facility] ([facility]) Anion Gap 6 meq/L 8-16 [facility] ([facility] [place] Ast/Sgot 42 U/L 7-37 [facility] ([facility] Alt/SGPT 25 U/L 12-78 [facility] ([facility] Bilirubin,Total 0.9 mg/dL 0.2-1.0 [facility] ([facility]) Alkaline Phosphatase 155 U/L 45-117 [facility] ([facility] Total Protein 6.8 GM/DL 6.4-8.2 [facility] ([facility]) Albumin 2.3 GM/DL 3.2-5.2 [facility] ([facility]) Albumin/Globulin Ratio 0.5 [facility] ([facility]) ID Date Data Source [id number] 05/30/2020 05:10:00 PM EDT [facility] ([facility] Name Value Range Interpretation Code Description Data Geraldine rce(s) Supporting Document(s) White Blood Count 5.8 [facility] ([facility]) Red Blood Count 3.70 [facility] ([facility]) Hemoglobin 11.8 [facility] ([facility]) Platelets 87 [facility] ([facility] Hematocrit 36.0 [facility] ([facility]) ID Date Data Source [id number] 05/30/2020 05:10:00 PM EDT [facility] ([facility] Name Value Range Interpretation Code Description Data Geraldine rce(s) Supporting Document(s) Glucose 245 [facility] ([facility] Blood Urea Nitrogen 27.5 [facility] ([facility]) Creatinine 2.0 [facility] ([facility]) Glomerular filtration rate/1.73 sq M.pre dicted [Volume Rate/Area] in Serum or Plasma by Creatinine-based formula (MDRD) 32 [facility] ([facility]) Sodium 139 [facility] ([facility]) Chloride 105.7 [facility] ([facility]) Potassium 3.95 [facility] ([facility]) Phosphorus 3.2 [facility] ([facility]) Calcium 7.9 [facility] ([facility]) Carbon Dioxide 26.7 [facility] ([facility]iol [facility]) Albumin 2.7 [facility] ID Date Data Source [id number] 05/30/2020 05:10:00 PM EDT [facility] ([facility]) Name Value Range Interpretation Code Description Data Geraldine rce(s) Supporting Document(s) Magnesium Level 2.08 [facility] ([facility]) ID Date Data Source [id number] 05/06/2020 11:16:00 AM EDT [facility] ([facility]) Name Value Range Interpretation Code Description Data Geraldine rce(s) Supporting Document(s) Magnesium [Mass/volume] in Serum or Plasma 2.1 mg/dL 1.6-2.3 [facility] ([facility]) Laboratory test finding (navigational concept) Laboratory test result [facility] ([facility]) ID Date Data Source [id number] 05/06/2020 11:16:00 AM EDT [facility] Name Value Range Interpretation Code Description Data Geraldine rce(s) Supporting Document(s) Glucose 218 mg/dL 65-99 [facility] Urea nitrogen [Mass/volume] in Serum or Plasma 26 mg/dL 8-27 [facility] ([facility]) Creatinine 2.05 mg/dL 0.76-1.27 [facility] ([facility]) Urea nitrogen/Creatinine [Mass Ratio] in Serum or Plasma 13 1 0-24 [facility] ([facility]) eGFR If Africn Am 34 mL/min/1.73 [facility] ([facility]) eGFR If NonAfricn Am 29 mL/min/1.73 MED[facility] NT ([facility]) Potassium [Moles/volume] in Serum or Plasma 4.6 mmol/L 3.5-5.2 [facility] ([facility]) Sodium 136 mmol/L 134-144 [facility] ([facility]) Chloride [Moles/volume] in Serum or Plasma 102 mmol/L 96-106 [facility] ([facility]) Protein [Mass/volume] in Serum or Plasma 6.4 g/dL 6.0-8.5 [facility] ([facility]) Calcium [Mass/volume] in Serum or Plasma 8.7 mg/dL 8.6-10.2 [facility] ([facility]) Carbon dioxide, total [Moles/volume] in Serum or Plasma 24 mmol/L 20 -29 [facility] ([facility]) Albumin [Mass/volume] in Serum or Plasma 2.8 g/dL 3.6-4.6 [facility] ([facility]) A/G Ratio 0.8 1.2-2.2 [facility] Globulin [Mass/volume] in Serum by calculation 3.6 g/dL 1.5-4.5 [facility] ([facility]) Bilirubin.total [Mass/volume] in Serum or Plasma 0.8 mg/dL 0.0-1.2 [facility] ([facility]) Alkaline phosphatase [Enzymatic activity/volume] in Serum or Plasma 179 IU/L 39-117 [facility] ([facility]) Aspartate aminotransferase [Enzymatic activity/volume] in Serum or Plasma 47 IU/L 0-40 [facility] ([facility]) Alanine aminotransferase [Enzymatic activity/volume] in Seru m or Plasma 22 IU/L 0-44 [facility] ([facility]) ID Date Data Source [id number] 05/06/2020 11:16:00 AM EDT [facility] ([facility]) Name Value Range Interpretation Code Description Data Geraldine rce(s) Supporting Document(s) WBC 5.6 x10E3/uL 3.4-10.8 [facility] ([facility]) Hemoglobin [Mass/volume] in Blood 11.4 g/dL 13.0-17.7 [facility] ([facility]) RBC 3.65 x10E6/uL 4.14-5.80 [facility] ([facility]) Ovalocytes present. Hematocrit [Volume Fraction] of Blood by Automated count 34.7 % 3 7.5-51.0 [facility] ([facility]) Erythrocyte mean corpuscular hemoglobin concentration [Mass/volume] by Automated count 32.9 g/dL 31.5-35.7 [facility] ([facility] Erythrocyte mean corpuscular hemoglobin [Entitic mass] by Automated count 31.2 pg 26.6-33.0 [facility] ([facility]) Erythrocyte mean corpuscular volume [Entitic volume] by Auto mated count 95 fL 79-97 [facility] ([facility]) Erythrocyte distribution width [Ratio] by Automated count 14.4 % 11.6-15.4 [facility] ([facility] Lymphocytes/100 leukocytes in Blood by Automated count 40 % [facility] ([facility] Neutrophils/100 leukocytes in Blood by Automated count 47 % [facility] ([facility]) Platelets [#/volume] in Blood by Automated count 91 x10E3/uL 150-450 Below lower panic limits [facility] ([facility]) Platelet count verified by examination o f peripheral blood smear. Basophils/100 leukocytes in Blood by Automated count 1 % [facility] ([facility]) Eosinophils/100 leukocytes in Blood by Automated count 2 % [facility] ([facility]) Monocytes/100 leukocytes in Blood by Automated count 10 % [facility] ([facility]) Lymphocytes [#/volume] in Blood 2.2 x10E3/uL 0.7-3.1 [facility] ([facility]) Immature cells [#/volume] in Blood Laboratory test result [facility] ([facility]) Neutrophils [#/volume] in Blood by Automated count 2.7 x10E3/uL 1.4-7 .0 [facility] ([facility]) Monocytes [#/volume] in Blood 0.6 x10E3/uL 0.1-0.9 [facility] ([facility]) Eosinophils [#/volume] in Blood by Automated count 0.1 x10E3/uL 0.0-0 .4 [facility] ([facility]) Basophils [#/volume] in Blood by Automated count 0.0 x10E3/uL 0.0-0.2 [facility] ([facility]) Immature granulocytes/100 leukocytes in Blood by Automated count 0 % [facility] ([facility]) Nucleated erythrocytes/100 leukocytes [Ratio] in Blood by Automated count Laboratory test result [facility] ([facility]) Immature granulocytes [#/volume] in Blood by Automated count 0.0 x10E3/uL 0.0-0.1 [facility] ([facility]) Morphology [Interpretation] in Blood Narrative Laboratory test result [facility] ([facility]) Verified by microscopic examination. ID Date Data Source [id number] 05/06/2020 11:16:00 AM EDT [facility] Name Value Range Interpretation Code Description Data Geraldine rce(s) Supporting Document(s) Magnesium Level [facility]) Natriuretic peptide.B prohormone N-Terminal [Mass/volu me] in Serum or Plasma 271 pg/mL 0-486 [facility] ([facility]) <content>The following cut-points have b een suggested for the</content>
<content>use of proBNP for the diagnostic evaluation of heart</content>
<content>failure (HF) in patients with acute dy spnea:</content>
<content>Modality Age Optimal Cut</content>
<content>(years) Point</content>
<content> ---</content>
<content>Diagnosis (rule in HF) <50 450 pg/mL</content>
<content>50 - 75 900 pg/mL</content>
<content>>75 1800 pg/mL</content>
<content> Exclusion (rule out HF) Age independent 300 pg/mL</content>
<content></content> ID Date Data Source [id number] 05/07/2020 08:06:00 AM EDT [facility] Name Value Range Interpretation Code Description Data Geraldine rce(s) Supporting Document(s) Glucose 218 mg/dL 65-99 Above high normal [facility] BUN 26 mg/dL 8-27 [facility] Creatinine 2.05 mg/dL 0.76-1.27 Above high normal [facility] eGFR If NonAfricn Am 29 mL/min/1.73 >59 Below low normal [facility] eGFR If Africn Am 34 mL/min/1.73 >59 Below low normal [facility] BUN/Creatinine Ratio 13 10-24 [facility] Sodium 136 mmol/L 134-144 [facility] Potassium 4.6 mmol/L 3.5-5.2 [facility] Chloride 102 mmol/L 96-106 [facility] Carbon Dioxide, Total 24 mmol/L 20-29 [facility] Calcium 8.7 mg/dL 8.6-10.2 [facility] Protein, Total 6.4 g/dL 6.0-8.5 [facility] Albumin 2.8 g/dL 3.6-4.6 Below low normal [facility] Globulin, Total 3.6 g/dL 1.5-4.5 [facility] A/G Ratio 0.8 1.2-2.2 Below low normal [facility] Bilirubin, Total 0.8 mg/dL 0.0-1.2 [facility] Alkaline Phosphatase 179 IU/L 39-117 Above high normal [facility] AST (SGOT) 47 IU/L 0-40 Above high normal [facility] ALT (SGPT) 22 IU/L 0-44 [facility] ID Date Data Source [id number] 05/07/2020 10:05:00 AM EDT [facility] Name Value Range Interpretation Code Description Data Geraldine rce(s) Supporting Document(s) WBC 5.6 x10E3/uL 3.4-10.8 [facility] RBC 3.65 x10E6/uL 4.14-5.80 Below low normal [facility] Ovalocytes present. Hemoglobin 11.4 g/dL 13.0-17.7 Below low normal [facility] Hematocrit 34.7 % 37.5-51.0 Below low normal [facility] MCV 95 fL 79-97 [facility] MCH 31.2 pg 26.6-33.0 [facility] MCHC 32.9 g/dL 31.5-35.7 [facility] RDW 14.4 % 11.6-15.4 [facility] Platelets 91 x10E3/uL 150-450 Below lower panic limits [facility] Platelet count verified by examination o f peripheral blood smear. Neutrophils 47 % Not Estab. [facility] Lymphs 40 % Not Estab. [facility] Monocytes 10 % Not Estab. [facility] Eos 2 % Not Estab. [facility] Basos 1 % Not Estab. [facility] Neutrophils (Absolute) 2.7 x10E3/uL 1.4-7.0 [facility] Lymphs (Absolute) 2.2 x10E3/uL 0.7-3.1 [facility] Monocytes(Absolute) 0.6 x10E3/uL 0.1-0.9 [facility] Eos (Absolute) 0.1 x10E3/uL 0.0-0.4 [facility] Baso (Absolute) 0.0 x10E3/uL 0.0-0.2 [facility] Immature Granulocytes 0 % Not Estab. [facility] Immature Grans (Abs) 0.0 x10E3/uL 0.0-0.1 [facility] Comments: Note: [facility] Verified by microscopic examination. ID Date Data Source [id number] 05/08/2020 02:05:00 PM EDT [facility] Name Value Range Interpretation Code Description Data Geraldine rce(s) Supporting Document(s) NT-proBNP 271 pg/mL 0-486 [facility] The following cut-points have been suggested for the use of proBNP for the diagnostic evaluation of heart failure (HF) in patients with acute dyspnea: Modality Age Optimal Cut (years) Point Diagnosis (rule in HF) <50 450 pg/mL 50 - 75 900 pg/mL > 75 1800 pg/mL Exclusion (rule out HF) Age independent 300 pg/mL ID Date Data Source [id number] 05/07/2020 08:06:00 AM EDT [facility] Name Value Range Interpretation Code Description Data Geraldine rce(s) Supporting Document(s) Magnesium 2.1 mg/dL 1.6-2.3 [facility] ID Date Data Source [id number] 04/15/2020 12:00:00 AM EDT [facility] Anayeli Anaya MD Patient Name: DEBBIE EUCEDA [id number] Ga Luis Henry Date of : 1935[place] [address] Date of Exam: 04/15/2020PH#: Fax: [phone] EXAM: CHEST (2 VIEW) X-RAYCLINICAL INFORMATION: Combined systolic and diastolic heart failure.PA and lateral views. These images were obtained using digitalradiography.Comparison is 06/09/2019.Sternotomy wires and aortic valve replacement are again identified,unchanged.The lung arteaga are clear. The cardiac size is upper normal. The benji,mediastinum and skeletal structures are unchanged and unremarkable forpatient age.IMPRESSION:Essentially negative PA and lateral chest. No change from the prior study.Corey Sanders, ROSIBEL/Rasta you for referring DEBBIE EUCEDA to our office.Electronically Signed - COREY SANDERS MD 04/15/20 15:34 Name Value Range Interpretation Code Description Data Geraldine rce(s) Supporting Document(s) ID Date Data Source [id number] 12/11/2019 08:51:00 AM EDT [facility] Name Value Range Interpretation Code Description Data Geraldine rce(s) Supporting Document(s) Laboratory test finding (navigational concept) Laboratory test result [facility] Thyrotropin [Units/volume] in Serum or Plasma by Detec tion limit <= 0.005 mIU/L 2.730 uIU/mL 0.450-4.500 [facility] ([facility]) Written Authorization Laboratory test result [facility] ([facility]) No Written Authorization Received. ID Date Data Source [id number] 12/11/2019 08:51:00 AM EDT [facility] ([facility]) Name Value Range Interpretation Code Description Data Geraldine rce(s) Supporting Document(s) Glucose 105 mg/dL 65-99 [facility] ([facility]) Urea nitrogen [Mass/volume] in Serum or Plasma 20 mg/dL 8-27 [facility] ([facility]) eGFR If NonAfricn Am 31 mL/min/1.73 [facility] NT ([facility]) eGFR If Africn Am 36 mL/min/1.73 [facility] ([facility]) Creatinine 1.94 mg/dL 0.76-1.27 [facility] ([facility]) Sodium 138 mmol/L 134-144 [facility] ([facility]) Urea nitrogen/Creatinine [Mass Ratio] in Serum or Plasma 10 1 0-24 [facility] ([facility]) Potassium [Moles/volume] in Serum or Plasma 4.1 mmol/L 3.5-5.2 [facility] ([facility]) Calcium [Mass/volume] in Serum or Plasma 8.2 mg/dL 8.6-10.2 [facility] ([facility]) Chloride [Moles/volume] in Serum or Plasma 101 mmol/L 96-106 [facility] ([facility]) Carbon dioxide, total [Moles/volume] in Serum or Plasma 22 mmol/L 20 -29 [facility] ([facility]) Globulin [Mass/volume] in Serum by calculation 4.0 g/dL 1.5-4.5 [facility] ([facility]) Protein [Mass/volume] in Serum or Plasma 6.8 g/dL 6.0-8.5 [facility] ([facility]) Albumin [Mass/volume] in Serum or Plasma 2.8 g/dL 3.6-4.6 [facility] ([facility]) Alkaline phosphatase [Enzymatic activity/volume] in Serum or Plasma 176 IU/L 39-117 [facility] ([facility]) Bilirubin.total [Mass/volume] in Serum or Plasma 0.6 mg/dL 0.0-1.2 [facility] ([facility]) A/G Ratio 0.7 1.2-2.2 [facility] ([facility]) Alanine aminotransferase [Enzymatic activity/volume] in Seru m or Plasma 24 IU/L 0-44 [facility] ([facility]) Aspartate aminotransferase [Enzymatic activity/volume] in Serum or Plasma 56 IU/L 0-40 [facility] ([facility]) ID Date Data Source [id number] 12/11/2019 08:51:00 AM EDT [facility] ([facility]) Name Value Range Interpretation Code Description Data Geraldine rce(s) Supporting Document(s) RBC 3.69 x10E6/uL 4.14-5.80 [facility] ([facility]) WBC 5.7 x10E3/uL 3.4-10.8 [facility] ([facility]) Hemoglobin [Mass/volume] in Blood 11.3 g/dL 13.0-17.7 [facility] ([facility]) Erythrocyte mean corpuscular volume [Entitic volume] by Auto mated count 92 fL 79-97 [facility] ([facility]) Erythrocyte mean corpuscular hemoglobin [Entitic mass] by Automated count 30.6 pg 26.6-33.0 [facility] ([facility]) Hematocrit [Volume Fraction] of Blood by Automated count 34.1 % 3 7.5-51.0 [facility] ([facility]) Erythrocyte mean corpuscular hemoglobin concentration [Mass/volume] by Automated count 33.1 g/dL 31.5-35.7 [facility] ([facility]) Platelets [#/volume] in Blood by Automated count 92 x10E3/uL 150-450 Below lower panic limits [facility] ([facility]) Erythrocyte distribution width [Ratio] by Automated count 15.5 % 11.6-15.4 [facility] ([facility]) Neutrophils/100 leukocytes in Blood by Automated count 42 % [facility] ([facility]) Lymphocytes/100 leukocytes in Blood by Automated count 42 % [facility] ([facility]) Monocytes/100 leukocytes in Blood by Automated count 13 % [facility] ([facility]) Eosinophils/100 leukocytes in Blood by Automated count 2 % [facility] ([facility]) Neutrophils [#/volume] in Blood by Automated count 2.4 x10E3/uL 1.4-7 .0 [facility] ([facility]) Basophils/100 leukocytes in Blood by Automated count 1 % [facility] ([facility]) Immature cells [#/volume] in Blood Laboratory test result [facility] ([facility]) Basophils [#/volume] in Blood by Automated count 0.0 x10E3/uL 0.0-0.2 [facility] ([facility]) Monocytes [#/volume] in Blood 0.8 x10E3/uL 0.1-0.9 [facility] ([facility]) Eosinophils [#/volume] in Blood by Automated count 0.1 x10E3/uL 0.0-0 .4 [facility] ([facility]) Lymphocytes [#/volume] in Blood 2.4 x10E3/uL 0.7-3.1 [facility] ([facility]) Immature granulocytes/100 leukocytes in Blood by Automated count 0 % [facility] ([facility]) Immature granulocytes [#/volume] in Blood by Automated count 0.0 x10E3/uL 0.0-0.1 [facility] ([facility]) Nucleated erythrocytes/100 leukocytes [Ratio] in Blood by Automated count Laboratory test result [facility] ([facility]) Morphology [Interpretation] in Blood Narrative Laboratory test result [facility] ([facility]) Verified by microscopic examination. ID Date Data Source [id number] 12/11/2019 08:51:00 AM EDT [facility] ([facility]) Name Value Range Interpretation Code Description Data Geraldine rce(s) Supporting Document(s) Natriuretic peptide.B prohormone N-Terminal [Mass/volu me] in Serum or Plasma 181 pg/mL 0-486 [facility] ([facility] <content>The following cut-points have b een suggested for the</content>
<content>use of proBNP for the diagnostic evaluation of heart</content>
<content>failure (HF) in patients with acute dy spnea:</content>
<content>Modality Age Optimal Cut</content>
<content>(years) Point</content>
<content> ---</content>
<content>Diagnosis (rule in HF) <50 450 pg/mL</content>
<content>50 - 75 900 pg/mL</content>
<content>>75 1800 pg/mL</content>
<content> Exclusion (rule out HF) Age independent 300 pg/mL</content>
<content></content> ID Date Data Source [id number] 12/14/2019 08:05:00 AM EDT [facility] Name Value Range Interpretation Code Description Data Geraldine rce(s) Supporting Document(s) TSH 2.730 uIU/mL 0.450-4.500 [facility] ID Date Data Source [id number] 01/04/2020 02:05:00 PM EDT [facility] Name Value Range Interpretation Code Description Data Geraldine rce(s) Supporting Document(s) Written Authorization [facility] No Written Authorization Received. ID Date Data Source [id number] 12/12/2019 08:05:00 AM EDT [facility] Name Value Range Interpretation Code Description Data Geraldine rce(s) Supporting Document(s) WBC 5.7 x10E3/uL 3.4-10.8 [facility] RBC 3.69 x10E6/uL 4.14-5.80 Below low normal [facility] Hemoglobin 11.3 g/dL 13.0-17.7 Below low normal [facility] Hematocrit 34.1 % 37.5-51.0 Below low normal [facility] MCV 92 fL 79-97 [facility] MCH 30.6 pg 26.6-33.0 [facility] MCHC 33.1 g/dL 31.5-35.7 [facility] RDW 15.5 % 11.6-15.4 Above high normal [facility] Platelets 92 x10E3/uL 150-450 Below lower panic limits [facility] Neutrophils 42 % Not Estab. [facility] Lymphs 42 % Not Estab. [facility] Monocytes 13 % Not Estab. [facility] Eos 2 % Not Estab. [facility] Basos 1 % Not Estab. [facility] Neutrophils (Absolute) 2.4 x10E3/uL 1.4-7.0 [facility] Lymphs (Absolute) 2.4 x10E3/uL 0.7-3.1 [facility] Monocytes(Absolute) 0.8 x10E3/uL 0.1-0.9 [facility] Eos (Absolute) 0.1 x10E3/uL 0.0-0.4 [facility] Baso (Absolute) 0.0 x10E3/uL 0.0-0.2 [facility] Immature Granulocytes 0 % Not Estab. [facility] Immature Grans (Abs) 0.0 x10E3/uL 0.0-0.1 [facility] Comments: Note: [facility] Verified by microscopic examination. ID Date Data Source [id number] 12/13/2019 06:05:00 AM EDT [facility] Name Value Range Interpretation Code Description Data Geraldine e(s) Supporting Document(s) NT-proBNP 181 pg/mL 0-486 [facility] The following cut-points have been suggested for the use of proBNP for the diagnostic evaluation of heart failure (HF) in patients with acute dyspnea: Modality Age Optimal Cut (years) Point Diagnosis (rule in HF) <50 450 pg/mL 50 - 75 900 pg/mL > 75 1800 pg/mL Exclusion (rule out HF) Age independent 300 pg/mL ID Date Data Source [id number] 12/12/2019 08:05:00 AM EDT [facility] Name Value Range Interpretation Code Description Data Geraldine rce(s) Supporting Document(s) Glucose 105 mg/dL 65-99 Above high normal [facility] BUN 20 mg/dL 8-27 [facility] Creatinine 1.94 mg/dL 0.76-1.27 Above high normal [facility] eGFR If NonAfricn Am 31 mL/min/1.73 >59 Below low normal [facility] eGFR If Africn Am 36 mL/min/1.73 >59 Below low normal [facility] BUN/Creatinine Ratio 10 10-24 [facility] Sodium 138 mmol/L 134-144 [facility] Potassium 4.1 mmol/L 3.5-5.2 [facility] Chloride 101 mmol/L 96-106 [facility] Carbon Dioxide, Total 22 mmol/L 20-29 [facility] Calcium 8.2 mg/dL 8.6-10.2 Below low normal [facility] Protein, Total 6.8 g/dL 6.0-8.5 [facility] Albumin 2.8 g/dL 3.6-4.6 Below low normal [facility] Globulin, Total 4.0 g/dL 1.5-4.5 [facility] A/G Ratio 0.7 1.2-2.2 Below low normal [facility] Bilirubin, Total 0.6 mg/dL 0.0-1.2 [facility] Alkaline Phosphatase 176 IU/L 39-117 Above high normal [facility] AST (SGOT) 56 IU/L 0-40 Above high normal [facility] ALT (SGPT) 24 IU/L 0-44 [facility] ID Date Data Source [id number] 12/11/2019 07:51:00 AM EDT [facility] Name Value Range Interpretation Code Description Data Geraldine rce(s) Supporting Document(s) Thyroid Stimulating Hormone 2.730 ME D[facility] ([facility]) ID Date Data Source [id number] 08/28/2019 10:28:00 AM EST [facility] ([facility]) Name Value Range Interpretation Code Description Data Geraldine rce(s) Supporting Document(s) Thyrotropin [Units/volume] in Serum or Plasma by Detec tion limit <= 0.005 mIU/L 5.440 uIU/mL 0.450-4.500 [facility] ([facility]) Laboratory test finding (navigational concept) Laboratory test result [facility] ([facility]) ID Date Data Source [id number] 08/28/2019 10:28:00 AM EST [facility] ([facility]) Name Value Range Interpretation Code Description Data Geraldine rce(s) Supporting Document(s) Glucose 238 mg/dL 65-99 [facility] Creatinine 2.03 mg/dL 0.76-1.27 [facility] ([facility]) Urea nitrogen [Mass/volume] in Serum or Plasma 26 mg/dL 8-27 [facility] ([facility]) eGFR If NonAfricn Am 30 mL/min/1.73 [facility] NT ([facility]) Sodium 136 mmol/L 134-144 [facility] ([facility]) Urea nitrogen/Creatinine [Mass Ratio] in Serum or Plasma 13 1 0-24 [facility] ([facility]) eGFR If Africn Am 34 mL/min/1.73 [facility] ([facility]) Chloride [Moles/volume] in Serum or Plasma 100 mmol/L 96-106 [facility] ([facility]) Potassium [Moles/volume] in Serum or Plasma 3.9 mmol/L 3.5-5.2 [facility] ([facility]) Carbon dioxide, total [Moles/volume] in Serum or Plasma 23 mmol/L 20 -29 [facility] ([facility]) Albumin [Mass/volume] in Serum or Plasma 3.2 g/dL 3.5-4.7 [facility] ([facility]) Effective September 04, 2019 Albumin ref erence interval will be changing to: Age Male Female 0 - 7 days 3.6 - 4.9 3.6 - 4.9 8 - 30 days 3.4 - 4.7 3.4 - 4.7 1 - 6 month 3.7 - 4.8 3.7 - 4.8 7 months - 2 years 3.9 - 5.0 3.9 - 5.0 3 - 5 years 4.0 - 5.0 4.0 - 5.0 6 - 12 years 4.1 - 5.0 4.0 - 5.0 13 - 30 years 4.1 - 5.2 3.9 - 5.0 31 - 50 years 4.0 - 5.0 3.8 - 4.8 51 - 60 years 3.8 - 4.9 3.8 - 4.9 61 - 70 years 3.8 - 4.8 3.8 - 4.8 71 - 80 years 3.7 - 4.7 3.7 - 4.7 81 - 89 years 3.6 - 4.6 3.6 - 4.6 >89 years 3.5 - 4.6 3.5 - 4.6 Calcium [Mass/volume] in Serum or Plasma 8.4 mg/dL 8.6-10.2 [facility] ([facility]) Protein [Mass/volume] in Serum or Plasma 6.7 g/dL 6.0-8.5 [facility] ([facility]) A/G Ratio 0.9 1.2-2.2 [facility] ([facility]) Globulin [Mass/volume] in Serum by calculation 3.5 g/dL 1.5-4.5 [facility] ([facility]) Bilirubin.total [Mass/volume] in Serum or Plasma 0.7 mg/dL 0.0-1.2 [facility] ([facility]) Alanine aminotransferase [Enzymatic activity/volume] in Seru m or Plasma 29 IU/L 0-44 [facility] ([facility]) Alkaline phosphatase [Enzymatic activity/volume] in Serum or Plasma 185 IU/L 39-117 [facility] ([facility]) Aspartate aminotransferase [Enzymatic activity/volume] in Serum or Plasma 66 IU/L 0-40 [facility] ([facility]) ID Date Data Source [id number] 08/28/2019 10:28:00 AM EST [facility] ([facility]) Name Value Range Interpretation Code Description Data Geraldine rce(s) Supporting Document(s) Natriuretic peptide.B prohormone N-Terminal [Mass/volu me] in Serum or Plasma 152 pg/mL 0-486 [facility] ([facility]) <content>The following cut-points have b een suggested for the</content>
<content>use of proBNP for the diagnostic evaluation of heart</content>
<content>failure (HF) in patients with acute dy spnea:</content>
<content>Modality Age Optimal Cut</content>
<content>(years) Point</content>
<content> ---</content>
<content>Diagnosis (rule in HF) <50 450 pg/mL</content>
<content>50 - 75 900 pg/mL</content>
<content>>75 1800 pg/mL</content>
<content> Exclusion (rule out HF) Age independent 300 pg/mL</content>
<content></content> ID Date Data Source [id number] 08/28/2019 10:28:00 AM EST [facility] ([facility] Name Value Range Interpretation Code Description Data Geraldine rce(s) Supporting Document(s) WBC 5.0 x10E3/uL 3.4-10.8 [facility] ([facility]) RBC 3.79 x10E6/uL 4.14-5.80 [facility] ([facility]) Hemoglobin [Mass/volume] in Blood 11.6 g/dL 13.0-17.7 [facility] ([facility]) Erythrocyte mean corpuscular volume [Entitic volume] by Auto mated count 93 fL 79-97 [facility] ([facility]) Erythrocyte mean corpuscular hemoglobin [Entitic mass] by Automated count 30.6 pg 26.6-33.0 [facility] ([facility]) Hematocrit [Volume Fraction] of Blood by Automated count 35.3 % 3 7.5-51.0 [facility] ([facility]) Erythrocyte distribution width [Ratio] by Automated count 15.9 % 11.6-15.4 [facility] ([facility]) Please note reference interval change* * Platelets [#/volume] in Blood by Automated count 99 x10E3/uL 150-450 Below lower panic limits [facility] ([facility] Actual platelet count may be somewhat hi gher than reported due to aggregation of platelets in this sample. Erythrocyte mean corpuscular hemoglobin concentration [Mass/volume] by Automated count 32.9 g/dL 31.5-35.7 [facility] ([facility]) Neutrophils/100 leukocytes in Blood by Automated count 47 % [facility] ([facility]) Monocytes/100 leukocytes in Blood by Automated count 12 % [facility] ([facility]) Lymphocytes/100 leukocytes in Blood by Automated count 38 % [facility] ([facility]) Eosinophils/100 leukocytes in Blood by Automated count 3 % [facility] ([facility]) Basophils/100 leukocytes in Blood by Automated count 0 % [facility] ([facility]) Immature cells [#/volume] in Blood Laboratory test result [facility] ([facility]) Lymphocytes [#/volume] in Blood 1.9 x10E3/uL 0.7-3.1 [facility] ([facility]) Monocytes [#/volume] in Blood 0.6 x10E3/uL 0.1-0.9 [facility] ([facility]) Neutrophils [#/volume] in Blood by Automated count 2.3 x10E3/uL 1.4-7 .0 [facility] ([facility]) Basophils [#/volume] in Blood by Automated count 0.0 x10E3/uL 0.0-0.2 [facility] ([facility]) Eosinophils [#/volume] in Blood by Automated count 0.1 x10E3/uL 0.0-0 .4 [facility] ([facility]) Immature granulocytes/100 leukocytes in Blood by Automated count 0 % [facility] ([facility]) Immature granulocytes [#/volume] in Blood by Automated count 0.0 x10E3/uL 0.0-0.1 [facility] ([facility]) Morphology [Interpretation] in Blood Narrative Laboratory test [facility]) Verified by microscopic examination. Nucleated erythrocytes/100 leukocytes [Ratio] in Blood by Automated count Laboratory test result [facility] ([facility]) ID Date Data Source [id number] 08/29/2019 08:06:00 AM EST [facility] Name Value Range Interpretation Code Description Data Geraldine rce(s) Supporting Document(s) Glucose 238 mg/dL 65-99 Above high normal [facility] BUN 26 mg/dL 8-27 [facility] Creatinine 2.03 mg/dL 0.76-1.27 Above high normal [facility] eGFR If NonAfricn Am 30 mL/min/1.73 >59 Below low normal [facility] eGFR If Africn Am 34 mL/min/1.73 >59 Below low normal [facility] BUN/Creatinine Ratio 13 10-24 [facility] Sodium 136 mmol/L 134-144 [facility] Potassium 3.9 mmol/L 3.5-5.2 [facility] Chloride 100 mmol/L 96-106 [facility] Carbon Dioxide, Total 23 mmol/L 20-29 [facility] Calcium 8.4 mg/dL 8.6-10.2 Below low normal [facility] Protein, Total 6.7 g/dL 6.0-8.5 [facility] Albumin 3.2 g/dL 3.5-4.7 Below low normal [facility] Effective August 172019 Albumin reference interval will be changing to: Age Male Female 0 - 7 days 3.6 - 4.9 3.6 - 4.9 8 - 30 days 3.4 - 4.7 3.4 - 4.7 1 - 6 month 3.7 - 4.8 3.7 - 4.8 7 months - 2 years 3.9 - 5.0 3.9 - 5.0 3 - 5 years 4.0 - 5.0 4.0 - 5.0 6 - 12 years 4.1 - 5.0 4.0 - 5.0 13 - 30 years 4.1 - 5.2 3.9 - 5.0 31 - 50 years 4.0 - 5.0 3.8 - 4.8 51 - 60 years 3.8 - 4.9 3.8 - 4.9 61 - 70 years 3.8 - 4.8 3.8 - 4.8 71 - 80 years 3.7 - 4.7 3.7 - 4.7 81 - 89 years 3.6 - 4.6 3.6 - 4.6 >89 years 3.5 - 4.6 3.5 - 4.6 Globulin, Total 3.5 g/dL 1.5-4.5 [facility] A/G Ratio 0.9 1.2-2.2 Below low normal [facility] Bilirubin, Total 0.7 mg/dL 0.0-1.2 [facility] Alkaline Phosphatase 185 IU/L 39-117 Above high normal [facility] AST (SGOT) 66 IU/L 0-40 Above high normal [facility] ALT (SGPT) 29 IU/L 0-44 [facility] ID Date Data Source [id number] 08/29/2019 10:05:00 AM EST [facility] Name Value Range Interpretation Code Description Data Geraldine rce(s) Supporting Document(s) WBC 5.0 x10E3/uL 3.4-10.8 [facility] RBC 3.79 x10E6/uL 4.14-5.80 Below low normal [facility] Hemoglobin 11.6 g/dL 13.0-17.7 Below low normal [facility] Hematocrit 35.3 % 37.5-51.0 Below low normal [facility] MCV 93 fL 79-97 [facility] MCH 30.6 pg 26.6-33.0 [facility] MCHC 32.9 g/dL 31.5-35.7 [facility] RDW 15.9 % 11.6-15.4 Above high normal [facility] Please no te reference interval change Platelets 99 x10E3/uL 150-450 Below lower panic limits [facility] Actual platelet count may be somewhat hi gher than reported due toaggregation of platelets in this sample. Neutrophils 47 % Not Estab. [facility] Lymphs 38 % Not Estab. [facility] Monocytes 12 % Not Estab. [facility] Eos 3 % Not Estab. [facility] Basos 0 % Not Estab. [facility] Neutrophils (Absolute) 2.3 x10E3/uL 1.4-7.0 [facility] Lymphs (Absolute) 1.9 x10E3/uL 0.7-3.1 [facility] Monocytes(Absolute) 0.6 x10E3/uL 0.1-0.9 [facility] Eos (Absolute) 0.1 x10E3/uL 0.0-0.4 [facility] Baso (Absolute) 0.0 x10E3/uL 0.0-0.2 [facility] Immature Granulocytes 0 % Not Estab. [facility] Immature Grans (Abs) 0.0 x10E3/uL 0.0-0.1 [facility] Comments: Note: [facility] Verified by microscopic examination. ID Date Data Source [id number] 08/30/2019 06:05:00 AM EST [facility] Name Value Range Interpretation Code Description Data Geraldine rce(s) Supporting Document(s) NT-proBNP 152 pg/mL 0-486 [facility] The following cut-points have been suggested for the use of proBNP for the diagnostic evaluation of heart failure (HF) in patients with acute dyspnea: Modality Age Optimal Cut (years) Point Diagnosis (rule in HF) <50 450 pg/mL 50 - 75 900 pg/mL > 75 1800 pg/mL Exclusion (rule out HF) Age independent 300 pg/mL ID Date Data Source [id number] 08/29/2019 08:06:00 AM EST [facility] Name Value Range Interpretation Code Description Data Geraldine rce(s) Supporting Document(s) TSH 5.440 uIU/mL 0.450-4.500 Above high normal [facility] Procedure Vital Signs ID Date Data Source [id number] Name Value Range Interpretation Code Description Data Source(s) Diastolic blood pressure 68 mm[Hg] 68 mm[Hg] eCW1 ([facility]) Systolic blood pressure 116 mm[Hg] 116 mm[Hg] e CW1 ([facility]) Body temperature 98.4 [degF] 98.4 [degF] eCW1 ( [facility]) Respiratory rate 18 /min 18 /min eCW1 ([facility]) Heart rate 89 /min 89 /min eCW1 ([facility]) Body mass index (BMI) [Ratio] 31.87 kg/m2 31.87 kg/m2 W1 ([facility]) Body height 72 [in_i] 72 [in_i] eCW1 ([facility]) Body weight 235.0 [lb_av] 235.0 [lb_av] eCW1 ([facility]) Diastolic blood pressure--supine 76 mm[Hg] 76 mm[Hg] [facility] ([facility]) Systolic blood pressure--supine 138 mm[Hg] 138 mm[Hg] [facility] ([facility]) Diastolic blood pressure--sitting 72 mm[Hg] 72 mm[Hg] [facility] ([facility]) Medium cuff, Ra (asymptomatic) Systolic blood pressure--sitting 118 mm[Hg] 118 mm[Hg] [facility] ([facility]) Medium cuff, Ra (asymptomatic) Respiratory rate 16 /min 16 /min [facility] ( [facility]) Heart rate 68 /min 68 /min [facility] ([facility]) regular Body mass index (BMI) [Ratio] 31.5 kg/m2 31.5 k g/m2 [facility] ([facility]) Body height 73 [in_i] 73 [in_i] [facility] ([facility]) 6'1" Body weight 239.00 [lb_av] 239.00 [lb_av] MEDEN T ([facility]) Diastolic blood pressure 72 mm[Hg] 72 mm[Hg] eCW1 ([facility]) Systolic blood pressure 120 mm[Hg] 120 mm[Hg] e CW1 ([facility]) Body temperature 97.3 [degF] 97.3 [degF] eCW1 ( [facility]) Respiratory rate 18 /min 18 /min eCW1 ([facility]) Heart rate 85 /min 85 /min eCW1 ([facility]) Body mass index (BMI) [Ratio] 31.84 kg/m2 31.84 kg/m2 eCW1 ([facility]) Body height 72 [in_us] 72 [in_us] eCW1 ([facility]) Body weight Measured 234.8 [lb_av] 234.8 [lb_av ] eCW1 ([facility]) Diastolic blood pressure--supine 82 mm[Hg] 82 mm[Hg] [facility] ([facility]) Systolic blood pressure--supine 123 mm[Hg] 123 mm[Hg] [facility] ([facility]) Diastolic blood pressure--sitting 82 mm[Hg] 82 mm[Hg] [facility] ([facility]) Medium cuff, Ra Systolic blood pressure--sitting 108 mm[Hg] 108 mm[Hg] [facility] ([facility]) Medium cuff, Ra Respiratory rate 16 /min 16 /min [facility] ( [facility]) Heart rate 54 /min 54 /min [facility] ([facility]) regular Body mass index (BMI) [Ratio] 30.7 kg/m2 30.7 k g/m2 [facility] ([facility]) Body height 73 [in_i] 73 [in_i] MEDJOSTIN ([facility]) 6'1" Body weight 233.00 [lb_av] 233.00 [lb_av] JOSE T ([facility]) Patient Treatment Plan of Care Planned Activity Planned Date Details Description Data Source (s) December - 08/13/2020 12:00:00 AM BAYLEE lerma CW1 ([facility])
[2020-09-18 16:01] LABS: OSMOLALITY SERUM 297 MOSM/KG (280-301)
--- NOTE | 2020-09-18 16:01 | REP ---
INDICATION: Altered Mental Status. COMPARISON: Comparison chest x-ray 30 July 2017. Comparison chest x-ray 25 July 2020. TECHNIQUE: Portable upright AP chest radiograph. FINDINGS: The patient is rotated somewhat to the left. Prior median sternotomy and aortic valve replacement hardware seen. The heart is mildly prominent. There is new extensive alveolar infiltrate in the right upper lobe and right lower lobe consistent with pneumonia. Patchy increased markings are visible in the left upper perihilar red region as well. No pleural effusion is seen.. IMPRESSION: Extensive alveolar infiltrates right upper lobe and right base consistent with pneumonia. Status post aortic valve replacement and lower cervical spine discectomy and fusion plating.. <Electronically signed by Humberto Peralta > 09/18/20 [id number]
[2020-09-18 16:13] LABS: ALBUMIN 2.1 GM/DL (3.2-5.2); ALT/SGPT 57 U/L (12-78); BILIRUBIN,DIRECT 0.4 MG/DL (0.0-0.2); BILIRUBIN,TOTAL 1.2 MG/DL (0.2-1.0); BLOOD UREA NITROGEN 66 MG/DL (7-18); CALCIUM LEVEL 7.6 MG/DL (8.8-10.2); CARBON DIOXIDE LEVEL 22 MEQ/L (21-32); CHLORIDE LEVEL 100 MEQ/L (98-107); CK-MB VALUE MASS 19.5 NG/ML (<3.6); CPK CREATINE PHOSPHOKINASE 843 U/L (39-308); CREATININE FOR GFR 3.17 MG/DL (0.70-1.30); FERRITIN 194 NG/ML (26-388); GLOMERULAR FILTRATION RATE 20.1 (>35); GLUCOSE, FASTING 208 MG/DL (70-100); LDH LACTATE DEHYDROGENASE 872 U/L (87-241); MB/CK RELATIVE INDEX 2.31 (< OR =4); POTASSIUM SERUM 6.5 MEQ/L (3.5-5.1); SODIUM LEVEL 128 MEQ/L (136-145); THYROID STIMULATING HORMONE 0.415 uIU/ML (0.358-3.740); TOTAL PROTEIN 6.4 GM/DL (6.4-8.2); TROPONIN I 0.07 NG/ML (< 0.10)
[2020-09-18 16:44] LABS: ETHYL ALCOHOL (ETHANOL) < 0.003 % (0.000-0.010)
[2020-09-18] MEDS ORDERED: HALOPERIDOL 5MG/ML VIAL (J1630 PER 1) IV ONE (16:45)
[2020-09-18] MEDS ORDERED: HALOPERIDOL 5MG/ML VIAL (J1630 PER 1) As Ordered ONE (16:48)
--- NOTE | 2020-09-18 17:44 | REPVR ---
PROCEDURE INFORMATION: Exam: CT Head Without Contrast Exam date and time: 09/18/2020 5:32 PM Age: 84 years old Clinical indication: Altered mental status/memory loss TECHNIQUE: Imaging protocol: Computed tomography of the head without contrast. Radiation optimization: All CT scans at this facility use at least one of these dose optimization techniques: automated exposure control; mA and/or kV adjustment per patient size (includes targeted exams where dose is matched to clinical indication); or iterative reconstruction. COMPARISON: No relevant prior studies available. FINDINGS: Brain: Mild nonspecific hypodensities of the periventricular and deep subcortical white matter, most likely secondary to chronic small vessel ischemic change. No intracranial hemorrhage or extra-axial fluid collection. No evidence of mass effect or midline shift. Montanez-white matter differentiation is normal. Cerebral ventricles: Mild prominence of the ventricles and sulci, most likely attributed to parenchymal volume loss. Bones/joints: No acute osseus lesion or fracture. Paranasal sinuses: Visualized sinuses are unremarkable. No fluid levels. Mastoid air cells: Unremarkable. Soft tissues: Unremarkable. IMPRESSION: 1. No acute intracranial pathology. 2. Other chronic findings, as above. Electronically signed by: Silvino Wolf On 09/18/2020 17:44:27 PM
--- NOTE | 2020-09-18 18:06 | REPVR ---
PROCEDURE INFORMATION: Exam: CT Chest Without Contrast; Diagnostic Exam date and time: 09/18/2020 5:32 PM Age: 84 years old Clinical indication: Shortness of breath and other: Covid positive; Additional info: Covid/sob TECHNIQUE: Imaging protocol: Diagnostic computed tomography of the chest without contrast. Radiation optimization: All CT scans at this facility use at least one of these dose optimization techniques: automated exposure control; mA and/or kV adjustment per patient size (includes targeted exams where dose is matched to clinical indication); or iterative reconstruction. COMPARISON: [place] PORTABLE CHEST X-RAY 09/18/2020 3:39 PM FINDINGS: Lungs: Pulmonary vascular/interstitial pattern does not suggest active pulmonary edema. Multifocal lung infiltrates are present consistent with COVID-19. No obvious lung mass, within the limitations of the exam. Pleural spaces: No pleural effusion or pneumothorax. Heart: Multi-chamber cardiac dilatation is noted. Median sternotomy and coronary bypass changes are present. Aorta: Thoracic aorta is ectatic and atherosclerotic. No focal aneurysm. Lymph nodes: Calcified mediastinal lymph nodes suggest prior granulomatous exposure. 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 Exam limitations: Limited without IV contrast and also significantly limited by motion artifact. IMPRESSION: Significantly limited study secondary to gross patient motion, demonstrating multifocal lung infiltrates suggestive of COVID-19 pneumonia Electronically signed by: Tereso Molina On 09/18/2020 18:06:09 PM
--- NOTE | 2020-09-18 18:12 | REPVR ---
PROCEDURE INFORMATION: Exam: CT Abdomen And Pelvis Without Contrast Exam date and time: 09/18/2020 5:32 PM Age: 84 years old Clinical indication: Abdominal pain; Generalized; Additional info: Flank bruising, possible fall TECHNIQUE: Imaging protocol: Computed tomography of the abdomen and pelvis without contrast. Radiation optimization: All CT scans at this facility use at least one of these dose optimization techniques: automated exposure control; mA and/or kV adjustment per patient size (includes targeted exams where dose is matched to clinical indication); or iterative reconstruction. COMPARISON: No relevant prior studies available. FINDINGS: Liver: Liver appears cirrhotic with nodular contours. Gallbladder and bile ducts: Gallbladder shows no obvious stone. Pancreas: Noncontrast pancreas shows no obvious mass or adjacent fluid. Spleen: Spleen appears enlarged. Adrenal glands: Adrenal glands are normal in appearance. Kidneys and ureters: Kidneys show no stone or hydronephrosis. Kidneys are atrophic and an exophytic simple right renal cyst is present. Stomach and bowel: No evidence of small bowel obstruction. Diverticular changes are present within the colon without inflammation. Mural edema of the distal colon and rectum is present. Appendix: Appendix is not seen. No RLQ inflammation to suggest appendicitis. Intraperitoneal space: Moderate volume of abdominal and pelvic free fluid is present. No pneumoperitoneum. Vasculature: Atherosclerotic change present in the aorta, without aneurysm. Lymph nodes: No enlarged lymph nodes. Urinary bladder: Elliott catheter is present within the bladder. Bones/joints: Degenerative changes are seen in the lumbar spine with disc height loss, endplate osteophytes and hypertrophic facet arthropathy. Soft tissues: Unremarkable. Other findings: Limited evaluation without enteric or IV contrast and also limited by motion. IMPRESSION: 1. Severely limited study secondary to gross patient motion throughout the scan, and absence of IV and enteric contrast. 2. Cirrhosis, splenomegaly and moderate volume of abdominal and pelvic ascites. 3. Circumferential mural edema of the sigmoid colon and rectum which can be secondary to hypoalbuminemia related to hepatic disease or could be inflammatory. 4. Colonic diverticulosis without active inflammation COMMENTS: Consistent with the [employer]'s Incidental Findings Committee white paper (J Am Stephane Radiol 2018): Any incidental renal lesion less than 1 cm or classified as too small to characterize, or any incidental cystic renal lesion characterized as simple-appearing, is likely benign. No follow-up imaging is recommended for these lesions per consensus recommendations based on imaging criteria. Electronically signed by: Tereso Molina On 09/18/2020 18:12:22 PM
[2020-09-18] MEDS ORDERED: FUROSEMIDE 100MG/10ML VIAL (J1940) IV ONE (18:30)
[2020-09-18] MEDS ORDERED: dexameTHASONE 4 MG/ML 1ML VIAL (J1100 PER 1MG) IV SCH (21:00)
[2020-09-18] MEDS ORDERED: ACETAMINOPHEN TAB 650MG DOSE (2X325MG) PO PRN (21:00)
--- OUTSIDE RECORDS SUMMARY | 2020-09-18 21:16 | CCD ---
Author Author [facility] Organization [facility] Address Unknown Phone Unavailable Care Team Providers Care Hvac R Tech Name Role Phone Juan Antonio DENG MD Unavailable Unavailable Juan Antonio DENG MD Unavailable Unavailable Juan Antonio DENG MD Unavailable Unavailable Juan Antonio DENG MD Unavailable Unavailable Juan Antonio DENG MD Unavailable Unavailable Juan Antonio DENG MD Unavailable Unavailable Juan Antonio DENG MD Unavailable Unavailable Juan Antonio DENG MD Unavailable Unavailable Juan Antonio DENG MD Unavailable Unavailable Juan Antonio DENG MD Unavailable Unavailable Juan Antonio DENG MD Unavailable Unavailable Juan Antonio DENG MD Unavailable Unavailable Juan Antonio DENG MD Unavailable Unavailable Juan Antonio DENG MD Unavailable Unavailable Juan Antonio DENG MD Unavailable Unavailable Juan Antonio DENG MD Unavailable Unavailable Juan Antonio DENG MD Unavailable Unavailable Juan Antonio DENG MD Unavailable Unavailable Juan Antonio DENG MD Unavailable Unavailable Juan Antonio DENG MD Unavailable Unavailable Juan Antonio DENG MD Unavailable Unavailable Juan Antonio DENG MD Unavailable Unavailable Juan Antonio DENG MD Unavailable Unavailable Juan Antonio DENG MD Unavailable Unavailable Juan Antonio DENG MD Unavailable Unavailable Juan Antonio DENG MD Unavailable Unavailable Juan Antonio DENG MD Unavailable Unavailable Juan Antonio DENG MD Unavailable Unavailable Juan Antonio DENG MD Unavailable Unavailable Juan Antonio DENG MD Unavailable Unavailable DENG, E ANAYELI MD Unavailable Unavailable DENG, E ANAYELI MD Unavailable Unavailable DENG, E ANAYELI MD Unavailable Unavailable DENG, E ANAYELI MD Unavailable Unavailable DENG, E ANAYELI MD Unavailable Unavailable DENG, E ANAYELI MD Unavailable Unavailable DENG, E ANAYELI MD Unavailable Unavailable DENG, E ANAYELI MD Unavailable Unavailable DENG, E ANAYELI MD Unavailable Unavailable DENG, E ANAYELI MD Unavailable Unavailable DENG, E ANAYELI MD Unavailable Unavailable DENG, E ANAYELI MD Unavailable Unavailable DENG, E ANAYELI MD Unavailable Unavailable DENG, E ANAYELI MD Unavailable Unavailable DENG, E ANAYELI MD Unavailable Unavailable DENG, E ANAYELI MD Unavailable Unavailable DENG, E ANAYELI MD Unavailable Unavailable DENG, E ANAYELI MD Unavailable Unavailable DENG, E ANAYELI MD Unavailable Unavailable DENG, E ANAYELI MD Unavailable Unavailable DENG, E ANAYELI MD Unavailable Unavailable DENG, E ANAYELI MD Unavailable Unavailable DENG, E ANAYELI MD Unavailable Unavailable DENG, E ANAYELI MD Unavailable Unavailable DENG, E ANAYELI MD Unavailable Unavailable DENG, E ANAYELI MD Unavailable Unavailable DENG, E ANAYELI MD Unavailable Unavailable Re-disclosure Warning [...] is protected by Article 27-F of the [facility] Public Health law. If you continue you may have access to information: Regarding HIV / AIDS; Provided by facilities licensed or operated by the [facility] Office of Mental Health; or Provided by the [facility] Office for People With Developmental Disabilities. If such information is present, then the following [facility] mandated warning applies: This information has been [...] law may result in a fine or group home sentence or both. A general authorization for the release of medical or other information is NOT sufficient authorization for further disc losure. Allergies and Adverse Reactions Type Description Substance Reaction Status Data Source(s ) Drug Class NO KNOWN ALLERGIES NO KNOWN ALLERGIES [facility] Family History Family Member Name Family Member Gender Family Member Status Date o f Status Description Data Source(s) Unknown Male Problem [facility] ([facility]) from complications Unknown Male Problem [facility] ([facility]) Unknown Female Problem [facility] ([facility] () - mother dm in her 70's Encounters Encounter Providers Location Date Indications Data Source(s ) Outpatient [address] [facility] [id number] 08/13/2020 12:00:00 AM EST [facility] Unknown [address] [facility] [id number] 07/24/2020 12:00:00 AM EST [facility] Unknown [address] [facility] [id number] 07/22/2020 12:00:00 AM EST [facility]CW1 [facility] [address] [facility] [address] 03/20/2020 12:00:00 AM EDT eCW1 [facility] Outpatient Attender: ANAYELI DENG MD Main Office 12/19/2019 12:15:00 PM EDT MED[facility] ([facility]) [facility] [place] [address] [facility] [address] [address] 10/06/2019 12:00:00 AM EST [facility] [address] [facility] [address] 10/03/2019 12:00:00 AM EST [facility]CW1 [facility] Outpatient Attender: ANAYELI DENG MD Main Office 09/14/2019 11:15:00 AM EST MED[facility] ([facility]) Immunizations Vaccine Date Status Description Data Source(s) INFLUENZA VIRUS VACCINE QUADRIVAL SPLIT 2020-21(65 YR UP)/PF 04/09/2020 12:00:00 AM EDT completed [facility] VARICELLA-ZOSTER VIRUS GLYCOPROTEIN E,REC/AS01B ADJUVA NT/PF 04/09/2020 12:00:00 AM EDT completed [facility] Zoster 50mcg/0.5mL (S[facility]rix) 02/12/2020 08:22:00 AM EDT completed eCW1 ([facility]) Zoster 50mcg/0.5mL (Shingrix) 02/12/2020 08:22:00 AM EDT completed eCW1 ([facility]) Zoster 50mcg/0.5mL (Shing[facility]) 02/12/2020 08:22:00 AM EDT completed eCW1 ([facility]) VARICELLA-ZOSTER VIRUS GLYCOPROTEIN E,REC/AS01B ADJUVA NT/PF 02/12/2020 [...] AM EST active May Have - eCW1 ([facility]) 500-125 mg 07/31/2020 12:00:00 AM EST tablet [...] BY MOUTH WEDNESDAY, WEDNESDAY, WEDNESDAY SOLD: 07/03/2020 [facility] 75 mcg 10/03/2019 12:00:00 AM EST [...] EST ORAL active [facility] ([facility]) Insurance Providers Payer name Policy type / Coverage type Policy ID Covered constitution party ID Covered constitution party's relationship to unger Policy Unger Plan Information [facility] [id number] SP [id number] MEDICARE [id number] SP [id number] SELF PAY ONLY [id number] SP [id number] MEDICARE C [id number] S [id number] R O [id number] S [id number] MEDICARE A [id number] Self [id number] A [facility] Part B [id number] Self [id number] Medicare (Part B) Medicare Primary [id number] Self [id number] [facility] [facility] [id number] Self [id number] r [facility] [id number] Self [id number] Medicare (Part B) Medicare Primary [id number] Self [id number] ANSI-Medicare Part B [id number] ANSI-Commercial [id number] ANSI-Commercial [id number] ANSI-Medicare Part B [id number] ANSI-Commercial [id number] ANSI-Commercial [id number] ANSI-Commercial [id number] ANSI-Commercial [id number] ANSI-Medicare Part B [id number] ANSI-Commercial [id number] ANSI-Commercial [id number] ANSI-Medicare Part B [id number] [facility] Part B [id number] Self 1931 Medicare (Part B) Medicare Primary [id number] [facility] [id number] [id number] Self 1931 Medicare (Part B) Medicare Primary [id number] Self [id number] Medicare [facility] Part B [id number] Self 1 [id number] Umr Commercial [id number] Se lf [id number] Medicare Medicare Primary [id number] Self [id number] MEDICARE C [id number] S [id number] [facility] [id number] Self 1931 Medicare (Part B) Medicare Primary [id number] Self [id number] ANSI-Medicare Part B [id number] ANSI-Commercial [id number] ANSI-Commercial [id number] [facility] Part B [id number] Self [id number] Medicare (Part B) Medicare Primary [id number] Self [id number] [facility] Part B [id number] Self [id number] Medicare (Part B) Medicare Primary [id number] Self [id number] ANSI-Medicare Part B [id number] ANSI-Commercial [id number] ANSI-Commercial [id number] ANSI-Medicare Part B [id number] ANSI-Commercial [id number] ANSI-Commercial [id number] ANSI-Commercial [id number] ANSI-Medicare Part B [id number] ANSI-Commercial [id number] ANSI-Medicare Part B [id number] ANSI-Commercial [id number] ANSI-Commercial [id number] MEDICARE [id number] SP [id number] [facility] [id number] SP [id number] MEDICARE [id number] SP [id number] A r [facility] [id number] Self [id number] Medicare (Part B) Medicare Primary [id number] Self [id number] ANSI-Commercial [id number] ANSI-Commercial [id number] ANSI-Medicare Part B [id number] Medicare [facility] Medigap Part B [id number] Self 1 [id number] Umr Commercial [id number] Se lf [id number] Medicare Medicare Primary [id number] Self 10 [id number] r Medigap Part B [id number] Self [id number] Medicare (Part B) Medicare Primary [id number] Self [id number] r Medigap Part B [id number] Self [id number] Medicare (Part B) Medicare Primary [id number] Self [id number] [employer] P[employer] O [id number] S [id number] ANSI-Medicare Part B [id number] ANSI-Commercial [id number] ANSI-Commercial [id number] [facility] Medigap Part B [id number] Self [id number] Medicare (Part B) Medicare Primary [id number] Self [id number] Medicare (Part B) Medicare Primary [id number] Self [id number] [employer] [facility] Ppo Medigap Part B [id number] Self [id number] [employer] [id number] SP [id number] [employer] [id number] SP [id number] MEDICARE [id number] SP [id number] A Medicare (Part B) Medicare Primary [id number] Self [id number] [employer] U [id number] Self [id number] [employer] U [id number] Self [id number] [employer] [id number] [place] [id number] MEDICARE [id number] [place] [id number] A MEDICARE PI PI [employer] PI PI [employer] [facility] Ppo Medigap Part B [id number] Self [id number] Medicare (Part B) Medicare Primary [id number] Self [id number] Medicare Dme Medigap Part B [id number] Self 1 [id number] [employer] Medigap Part B [id number] Self [id number] Medicare Medicare Primary [id number] Self 10 [id number] [employer] Medigap Part B Self Medicare Medicare Primary Self [facility] [id number] SP [id number] Problems, Conditions, and Diagnoses Code Display Name Description Problem Type Effective Dates Data Source(s) 443862934 Dietary management surveillance Dietary manageme nt surveillance Problem 12/19/2019 12:00:00 AM EDT MED[facility] ([facility]) 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 09/14/2019 12:00:00 AM EST MED[facility] ([facility]) Surgeries/Procedures Procedure Description Date Indications Data Source(s) Injection, triamcinolone acetonide, not otherwise specified , 10 mg 08/13/2020 12:00:00 AM EST eCW1 ([facility]) ECHO TTHRC R-T 2D W/WOM-MODE COMPL SPEC&COLR DOP 06/11 12:00:00 AM EDT MEDENT ([facility]) DEBRIDEMENT NAIL ANY METHOD 03/05/2020 12:00:00 AM EDT [facility] ([facility] ECG ROUTINE ECG W/LEAST 12 LDS W/I&R 12/19/2019 12:00: 00 AM EDT MED[facility] ([facility]) PARING/CUTTING BENIGN HYPERKERATOTIC LESION 2-4 2019 12:00:00 AM EST [facility] ([facility] DEBRIDEMENT NAIL ANY METHOD 10/10/2019 12:00:00 AM EST [facility] ([facility] XTRNL ECG < 48 HR RECORDING 10/10/2019 12:00:00 AM EST MED[facility] ([facility]) XTRNL ECG CONTINUOUS RHYTHM PHYS REVIEW&INTERPJ 2019 12:00:00 AM EST MED[facility] ([facility]) Annual wellness visit, includes a person alized prevention plan of service (pps), subsequent visit 10/03/2019 12:00:00 AM EST eCW1 ([facility]) Office Visit, Est Pt., Level 4 PC 10/03/2019 12:00:00 AM EST eCW1 ([facility]) Office Visit, Est Pt., Level 2 FC 10/03/2019 12:00:00 AM EST eCW1 ([facility]) DESTROY BENIGN/PREMLG LESION 10/03/2019 12:00:00 AM ES T eCW1 ([facility]) ECG ROUTINE ECG W/LEAST 12 LDS W/I&R 09/14/2019 12:00: 00 AM EST MED[facility] ([facility]) Results ID Date Data Source [id number] 09/10/2020 07:46:00 AM EST [facility] ([facility]) Name Value Range Interpretation Code Description Data Geraldine rce(s) Supporting Document(s) Magnesium Level 2.47 [facility] ([facility]) ID Date Data Source [id number] 09/10/2020 07:46:00 AM EST [facility] ([facility]) Name Value Range Interpretation Code Description Data Geraldine rce(s) Supporting Document(s) Glucose 161 [facility] ([facility] Blood Urea Nitrogen 30.9 [facility] ([facility]) Creatinine 2.0 [facility] ([facility]) Sodium 139.6 [facility] ([facility] Glomerular filtration rate/1.73 sq M.pre dicted [Volume Rate/Area] in Serum or Plasma by Creatinine-based formula (MDRD) 32 MED[facility] ([facility]) Potassium 4.58 [facility] Carbon Dioxide 26.9 [facility] ([facility]) Chloride 104.1 [facility] Phosphorus 3.2 [facility] ([facility]) Calcium 7.8 [facility] Albumin 2.8 [facility] ID Date Data Source [id number] 09/10/2020 07:46:00 AM EST [facility] ([facility]) Name Value Range Interpretation Code Description Data Geraldine rce(s) Supporting Document(s) Red Blood Count 3.12 [facility] ([facility]) White Blood Count 5.0 [facility] ([facility]) Hemoglobin 10.2 [facility] ([facility]) Platelets 87 [facility] ([facility] Hematocrit 31.3 [facility] ([facility]) ID Date Data Source [id number] 09/10/2020 07:46:00 AM EST [facility] ([facility]) Name Value Range Interpretation Code Description Data Geraldine rce(s) Supporting Document(s) Iron 38 [facility] ([facility] Iron binding capacity [Mass/volume] in Serum or Plasma 283 [facility] ([facility]) Tibc % Saturation 13.4 [facility] ([facility]) ID Date Data Source [id number] 09/10/2020 07:46:00 AM EST [facility] ([facility]) Name Value Range Interpretation Code Description Data Geraldine rce(s) Supporting Document(s) Natriuretic peptide.B prohormone N-Terminal [Mass/volu me] in Serum or Plasma 541 [facility] ([facility]) ID Date Data Source [id number] 07/31/2020 03:10:00 PM EST [facility] ([facility]) Name Value Range Interpretation Code Description Data Geraldine rce(s) Supporting Document(s) Magnesium Level 1.85 [facility] ([facility]) ID Date Data Source [id number] 07/31/2020 03:10:00 PM EST [facility] ([facility]) Name Value Range Interpretation Code Description Data Geraldine rce(s) Supporting Document(s) Blood Urea Nitrogen 24.3 [facility] ([facility]) Glucose 240 [facility] ([facility] Glomerular filtration rate/1.73 sq M.pre dicted [Volume Rate/Area] in Serum or Plasma by Creatinine-based formula (MDRD) 32 [facility] ([facility]) Creatinine 2.0 [facility] ([facility]) Sodium 132.5 [facility] ([facility] Potassium 4.49 [facility] Chloride 98.3 [facility] Carbon Dioxide 26.7 [facility] ([facility]) Phosphorus 2.6 [facility] ([facility]) Calcium 8.0 [facility] ([facility] Albumin 2.6 [facility] ([facility] ID Date Data Source [id number] 07/31/2020 03:10:00 PM EST [facility] ([facility]) Name Value Range Interpretation Code Description Data Geraldine rce(s) Supporting Document(s) White Blood Count 6.8 [facility] ([facility]) Red Blood Count 3.59 [facility] ([facility]) Platelets 114 [facility] Hemoglobin 11.4 [facility] ([facility]) Hematocrit 35.3 [facility] ([facility]) ID Date Data Source [id number] 07/25/2020 12:00:00 AM EST [facility] Anayeli Deng MD Patient Name: DEBBIE EUCEDA [id number] [facility] A Date of : 1935[place] [address] Date of Exam: 07/25/2020#: Fax: [phone] EXAM: [...] rce(s) Supporting Document(s) ID Date Data Source [id number] 07/24/2020 11:08:00 AM EST [facility] [place] Name Value Range Interpretation Code Description Data [facility] rce(s) Supporting Document(s) Platelets reticulated/100 platelets in Blood by Automated count 6.0 % 0.0-10.91 [facility] ([facility]) Natriuretic peptide.B prohormone N-Terminal [Mass/volu me] in Serum or Plasma 344 pg/mL [facility] ([facility]) ID Date Data Source [id number] 07/24/2020 11:08:00 AM EST [facility] [place] Name Value Range Interpretation Code Description Data [facility] rce(s) Supporting Document(s) Glucose, Fasting 207 mg/dL 70-100 [facility] Blood Urea Nitrogen 27 mg/dL 7-18 [facility] ([facility]) Creatinine For GFR 2.52 mg/dL 0.70-1.30 [facility] ([facility]) Sodium Level 138 meq/L 136-145 [facility] ([facility]) Glomerular Filtration Rate 26.1 MED ENT ([facility]) <content>Units are mL/min/1.73 m2</content>
<content></content>
<content>Chronic Kidney Disease Staging per NKF:</content>
<content></content>
<content>Stage I & II GFR >=60 Normal to Mildly Decreased</content>
<content>Stage III GFR 30- 59 Moderately Decreased</content>
<content>Stage IV GFR 15-29 Severely Decreased</content>
<content>Stage V GFR <15 Very Little GFR Left</content>
<content>ESRD GFR <15 on DIVERSIFIED CROPS SUPERVISOR</content>
<content></content> Potassium Serum 4.5 meq/L 3.5-5.1 [facility] Chloride Level 108 meq/L 98-107 [facility] ([facility]) Calcium Level 8.2 mg/dL 8.8-10.2 [facility] Carbon Dioxide Level 24 meq/L 21-32 [facility] ([facility] Anion Gap 6 meq/L 8-16 [facility]) Ast/Sgot 42 U/L 7-37 [facility] Alt/SGPT 25 U/L 12-78 [facility] Bilirubin,Total 0.9 mg/dL 0.2-1.0 [facility] ([facility]) Alkaline Phosphatase 155 U/L 45-117 [facility] ([facility] Total Protein 6.8 GM/DL 6.4-8.2 [facility] ([facility]) Albumin 2.3 GM/DL 3.2-5.2 [facility] ([facility] Albumin/Globulin Ratio 0.5 [facility] ([facility]) ID Date Data Source [id number] 05/30/2020 05:10:00 PM EDT [facility] ([facility]) Name Value Range Interpretation Code Description Data Geraldine rce(s) Supporting Document(s) White Blood Count 5.8 [facility] ([facility]) Red Blood Count 3.70 [facility] Hemoglobin 11.8 [facility] ([facility]) Platelets 87 [facility] ([facility] Hematocrit 36.0 [facility] ([facility]) ID Date Data Source [id number] 05/30/2020 05:10:00 PM EDT [facility] ([facility]) Name Value Range Interpretation Code Description Data Geraldine rce(s) Supporting Document(s) Glucose 245 [facility] ([facility] Blood Urea Nitrogen 27.5 [facility] ([facility]) Creatinine 2.0 [facility] Glomerular filtration rate/1.73 sq M.pre dicted [Volume Rate/Area] in Serum or Plasma by Creatinine-based formula (MDRD) 32 [facility] ([facility]) Sodium 139 [facility] ([facility]) Chloride 105.7 [facility] ([facility]) Potassium 3.95 [facility] ([facility]) Phosphorus 3.2 [facility] ([facility]) Calcium 7.9 [facility] Carbon Dioxide 26.7 [facility] ([facility]) Albumin 2.7 [facility] ID Date Data Source [id number] 05/30/2020 05:10:00 PM EDT [facility] ([facility]) Name Value Range Interpretation Code Description Data Geraldine rce(s) Supporting Document(s) Magnesium Level 2.08 [facility] ([facility]) ID Date Data Source [id number] 05/06/2020 11:16:00 AM EDT [facility] ([facility]) Name Value Range Interpretation Code Description Data Geraldine rce(s) Supporting Document(s) Magnesium [Mass/volume] in Serum or Plasma 2.1 mg/dL 1.6-2.3 [facility] ([facility]) Laboratory test finding (navigational concept) Laboratory test result [facility] ([facility]) ID Date Data Source [id number] 05/06/2020 11:16:00 AM EDT [facility] ([facility]) Name Value Range Interpretation Code Description Data Geraldine rce(s) Supporting Document(s) Glucose 218 mg/dL 65-99 [facility] Urea nitrogen [Mass/volume] in Serum or Plasma 26 mg/dL 8-27 [facility] ([facility]) Creatinine 2.05 mg/dL 0.76-1.27 [facility] ([facility]) Urea nitrogen/Creatinine [Mass Ratio] in Serum or Plasma 13 1 0-24 [facility] ([facility]) eGFR If Africn Am 34 mL/min/1.73 [facility] ([facility]) eGFR If NonAfricn Am 29 mL/min/1.73 MEDE NT ([facility]) Potassium [Moles/volume] in Serum or Plasma 4.6 mmol/L 3.5-5.2 [facility] ([facility]) Sodium 136 mmol/L 134-144 [facility] ([facility]) Chloride [Moles/volume] in Serum or Plasma 102 mmol/L 96-106 [facility] ([facility]) Protein [Mass/volume] in Serum or Plasma 6.4 g/dL 6.0-8.5 [facility] ([facility]) Calcium [Mass/volume] in Serum or Plasma 8.7 mg/dL 8.6-10.2 [facility] ([facility]) Carbon dioxide, total [Moles/volume] in Serum or Plasma 24 mmol/L 20 -29 [facility] ([facility]) Albumin [Mass/volume] in Serum or Plasma 2.8 g/dL 3.6-4.6 [facility] ([facility]) A/G Ratio 0.8 1.2-2.2 [facility] ([facility]) Globulin [Mass/volume] in Serum by calculation 3.6 g/dL 1.5-4.5 [facility] ([facility]) Bilirubin.total [Mass/volume] in Serum or Plasma 0.8 mg/dL 0.0-1.2 [facility] ([facility]) Alkaline phosphatase [Enzymatic activity/volume] in Serum or Plasma 179 IU/L 39-117 [facility] ([facility]) Aspartate aminotransferase [Enzymatic activity/volume] in Serum or Plasma 47 IU/L 0-40 [facility] ([facility]) Alanine aminotransferase [Enzymatic activity/volume] in Seru m or Plasma 22 IU/L 0-44 [facility] ([facility]) ID Date Data Source [id number] 05/06/2020 11:16:00 AM EDT [facility] ([facility]) Name Value Range Interpretation Code Description Data Geraldine rce(s) Supporting Document(s) WBC 5.6 x10E3/uL 3.4-10.8 [facility] ([facility]) Hemoglobin [Mass/volume] in Blood 11.4 g/dL 13.0-17.7 [facility] ([facility]) RBC 3.65 x10E6/uL 4.14-5.80 [facility] ([facility]) Ovalocytes present. Hematocrit [Volume Fraction] of Blood by Automated count 34.7 % 3 7.5-51.0 [facility] ([facility]) Erythrocyte mean corpuscular hemoglobin concentration [Mass/volume] by Automated count 32.9 g/dL 31.5-35.7 [facility] ([facility]) Erythrocyte mean corpuscular hemoglobin [Entitic mass] by Automated count 31.2 pg 26.6-33.0 [facility] ([facility]) Erythrocyte mean corpuscular volume [Entitic volume] by Auto mated count 95 fL 79-97 [facility] ([facility]) Erythrocyte distribution width [Ratio] by Automated count 14.4 % 11.6-15.4 [facility] ([facility]) Lymphocytes/100 leukocytes in Blood by Automated count 40 % [facility] ([facility]) Neutrophils/100 leukocytes in Blood by Automated count 47 % [facility] ([facility]) Platelets [#/volume] in Blood by Automated count 91 x10E3/uL 150-450 Below lower panic limits [facility] ([facility]) Platelet count verified by examination o f peripheral blood smear. Basophils/100 leukocytes in Blood by Automated count 1 % [facility] ([facility]) Eosinophils/100 leukocytes in Blood by Automated count 2 % [facility] ([facility]) Monocytes/100 leukocytes in Blood by Automated count 10 % [facility] ([facility]) Lymphocytes [#/volume] in Blood 2.2 x10E3/uL 0.7-3.1 [facility] ([facility]) Immature cells [#/volume] in Blood Laboratory test result [facility] ([facility]) Neutrophils [#/volume] in Blood by Automated count 2.7 x10E3/uL 1.4-7 .0 [facility] ([facility]) Monocytes [#/volume] in Blood 0.6 x10E3/uL 0.1-0.9 [facility] ([facility]) Eosinophils [#/volume] in Blood by Automated count 0.1 x10E3/uL 0.0-0 .4 [facility] ([facility] Basophils [#/volume] in Blood by Automated count 0.0 x10E3/uL 0.0-0.2 [facility] ([facility]) Immature granulocytes/100 leukocytes in Blood by Automated count 0 % [facility] ([facility]) Nucleated erythrocytes/100 leukocytes [Ratio] in Blood by Automated count Laboratory test result [facility] ([facility]) Immature granulocytes [#/volume] in Blood by Automated count 0.0 x10E3/uL 0.0-0.1 [facility] ([facility]) Morphology [Interpretation] in Blood Narrative Laboratory test result [facility] ([facility]) Verified by microscopic examination. ID Date Data Source [id number] 05/06/2020 11:16:00 AM EDT [facility] ([facility]) Name Value Range Interpretation Code Description Data Geraldine rce(s) Supporting Document(s) Magnesium Level Laboratory test result [facility] ([facility]) Natriuretic peptide.B prohormone N-Terminal [Mass/volu me] in Serum or Plasma 271 pg/mL 0-486 [facility] ([facility]) <content>The following cut-points have b een suggested for the</content>
<content>use of proBNP for the diagnostic evaluation of heart</content>
<content>failure (HF) in patients with acute dy spnea:</content>
<content>Modality Age Optimal Cut</content>
<content>(years) Point</content>
<content> ---</content>
<content>Diagnosis (rule in HF) <50 450 pg/mL</content>
<content>50 - 75 900 pg/mL</content>
<content>>75 1800 pg/mL</content>
<content> Exclusion (rule out HF) Age independent 300 pg/mL</content>
<content></content> ID Date Data Source [id number] 05/07/2020 08:06:00 AM EDT [facility] Name Value [...] IU/L 0-44 [facility] ID Date Data Source [id number] 05/07/2020 10:05:00 AM EDT [facility] Name Value [...] by microscopic examination. ID Date Data Source [id number] 05/08/2020 02:05:00 PM EDT [facility] Name Value [...] independent 300 pg/mL ID Date Data Source [id number] 05/07/2020 08:06:00 AM EDT [facility] Name Value Range Interpretation Code Description Data Geraldine rce(s) Supporting Document(s) Magnesium 2.1 mg/dL 1.6-2.3 [facility] ID Date Data Source [id number] 04/15/2020 12:00:00 AM EDT [facility] Anayeli Deng MD Patient Name: DEBBIE EUCEDA [id number] [employer] Shari Date of : 1935[place] [address] Date of Exam: 04/15/2020PH#: Fax: [phone] EXAM: [...] chest. No change from the prior study.Corey Wallace, ROSIBEL/Rasta you for referring DEBBIE EUCEDA to our office.Electronically Signed - COREY WALLACE MD 04/15/20 15:34 Name Value Range Interpretation Code Description Data Geraldine rce(s) Supporting Document(s) ID Date Data Source [id number] 12/11/2019 08:51:00 AM EDT [facility] ([facility]) Name Value Range Interpretation Code Description Data Geraldine rce(s) Supporting Document(s) Laboratory test finding (navigational concept) Laboratory test result [facility] ([facility]) Thyrotropin [Units/volume] in Serum or Plasma by Detec tion limit <= 0.005 mIU/L 2.730 uIU/mL 0.450-4.500 [facility] ([facility]) Written Authorization Laboratory test result [facility] ([facility]) No Written Authorization Received. ID Date Data Source [id number] 12/11/2019 08:51:00 AM EDT [facility] Name Value Range Interpretation Code Description Data Geraldine rce(s) Supporting Document(s) Glucose 105 mg/dL 65-99 [facility] (Cardiology [facility]) Urea nitrogen [Mass/volume] in Serum or Plasma 20 mg/dL 8-27 [facility] ([facility]) eGFR If NonAfricn Am 31 mL/min/1.73 [facility]E NT ([facility]) eGFR If Africn Am 36 mL/min/1.73 [facility] ([facility]) Creatinine 1.94 mg/dL 0.76-1.27 [facility] ([facility]) Sodium 138 mmol/L 134-144 [facility] ([facility]) Urea nitrogen/Creatinine [Mass Ratio] in Serum or Plasma 10 1 0-24 [facility] ([facility]) Potassium [Moles/volume] in Serum or Plasma 4.1 mmol/L 3.5-5.2 [facility] ([facility]) Calcium [Mass/volume] in Serum or Plasma 8.2 mg/dL 8.6-10.2 [facility] ([facility]) Chloride [Moles/volume] in Serum or Plasma 101 mmol/L 96-106 [facility] ([facility]) Carbon dioxide, total [Moles/volume] in Serum or Plasma 22 mmol/L 20 -29 [facility] ([facility]) Globulin [Mass/volume] in Serum by calculation 4.0 g/dL 1.5-4.5 [facility] ([facility]) Protein [Mass/volume] in Serum or Plasma 6.8 g/dL 6.0-8.5 [facility] ([facility]) Albumin [Mass/volume] in Serum or Plasma 2.8 g/dL 3.6-4.6 [facility] ([facility]) Alkaline phosphatase [Enzymatic activity/volume] in Serum or Plasma 176 IU/L 39-117 [facility] ([facility]) Bilirubin.total [Mass/volume] in Serum or Plasma 0.6 mg/dL 0.0-1.2 [facility] ([facility]) A/G Ratio 0.7 1.2-2.2 [facility] ([facility]) Alanine aminotransferase [Enzymatic activity/volume] in Seru m or Plasma 24 IU/L 0-44 [facility] ([facility]) Aspartate aminotransferase [Enzymatic activity/volume] in Serum or Plasma 56 IU/L 0-40 [facility] ([facility]) ID Date Data Source [id number] 12/11/2019 08:51:00 AM EDT [facility] ([facility]) Name Value Range Interpretation Code Description Data Geraldine rce(s) Supporting Document(s) RBC 3.69 x10E6/uL 4.14-5.80 [facility] ([facility]) WBC 5.7 x10E3/uL 3.4-10.8 [facility] ([facility]) Hemoglobin [Mass/volume] in Blood 11.3 g/dL 13.0-17.7 [facility] ([facility]) Erythrocyte mean corpuscular volume [Entitic volume] by Auto mated count 92 fL 79-97 [facility] ([facility]) Erythrocyte mean corpuscular hemoglobin [Entitic mass] by Automated count 30.6 pg 26.6-33.0 [facility] ([facility]) Hematocrit [Volume Fraction] of Blood by Automated count 34.1 % 3 7.5-51.0 [facility] ([facility]) Erythrocyte mean corpuscular hemoglobin concentration [Mass/volume] by Automated count 33.1 g/dL 31.5-35.7 [facility] ([facility]) Platelets [#/volume] in Blood by Automated count 92 x10E3/uL 150-450 Below lower panic limits [facility] ([facility]) Erythrocyte distribution width [Ratio] by Automated count 15.5 % 11.6-15.4 [facility] ([facility]) Neutrophils/100 leukocytes in Blood by Automated count 42 % [facility] ([facility]) Lymphocytes/100 leukocytes in Blood by Automated count 42 % [facility] ([facility]) Monocytes/100 leukocytes in Blood by Automated count 13 % [facility] ([facility]) Eosinophils/100 leukocytes in Blood by Automated count 2 % [facility] ([facility]) Neutrophils [#/volume] in Blood by Automated count 2.4 x10E3/uL 1.4-7 .0 [facility] ([facility]) Basophils/100 leukocytes in Blood by Automated count 1 % [facility] ([facility]) Immature cells [#/volume] in Blood Laboratory test result [facility] ([facility]) Basophils [#/volume] in Blood by Automated count 0.0 x10E3/uL 0.0-0.2 [facility] ([facility]) Monocytes [#/volume] in Blood 0.8 x10E3/uL 0.1-0.9 [facility] ([facility]) Eosinophils [#/volume] in Blood by Automated count 0.1 x10E3/uL 0.0-0 .4 [facility] ([facility]) Lymphocytes [#/volume] in Blood 2.4 x10E3/uL 0.7-3.1 [facility] ([facility]) Immature granulocytes/100 leukocytes in Blood by Automated count 0 % [facility] ([facility]) Immature granulocytes [#/volume] in Blood by Automated count 0.0 x10E3/uL 0.0-0.1 [facility] ([facility]) Nucleated erythrocytes/100 leukocytes [Ratio] in Blood by Automated count Laboratory test result [facility] ([facility]) Morphology [Interpretation] in Blood [facility]arrative [facility] Verified by microscopic examination. ID Date Data Source [id number] 12/11/2019 08:51:00 AM EDT [facility] ([facility]) Name Value Range Interpretation Code Description Data Geraldine rce(s) Supporting Document(s) Natriuretic peptide.B prohormone N-Terminal [Mass/volu me] in Serum or Plasma 181 pg/mL 0-486 [facility] ([facility]) <content>The following cut-points have b een suggested for the</content>
<content>use of proBNP for the diagnostic evaluation of heart</content>
<content>failure (HF) in patients with acute dy spnea:</content>
<content>Modality Age Optimal Cut</content>
<content>(years) Point</content>
<content> ---</content>
<content>Diagnosis (rule in HF) <50 450 pg/mL</content>
<content>50 - 75 900 pg/mL</content>
<content>>75 1800 pg/mL</content>
<content> Exclusion (rule out HF) Age independent 300 pg/mL</content>
<content></content> ID Date Data Source [id number] 12/14/2019 08:05:00 AM EDT [facility] Name Value Range Interpretation Code Description Data Geraldine rce(s) Supporting Document(s) TSH 2.730 uIU/mL 0.450-4.500 [facility] ID Date Data Source [id number] 01/04/2020 02:05:00 PM EDT [facility] Name Value Range Interpretation Code Description Data Geraldine rce(s) Supporting Document(s) Written Authorization [facility] No Written Authorization Received. ID Date Data Source [id number] 12/12/2019 08:05:00 AM EDT [facility] Name Value [...] by microscopic examination. ID Date Data Source [id number] 12/13/2019 06:05:00 AM EDT [facility] Name Value [...] independent 300 pg/mL ID Date Data Source [id number] 12/12/2019 08:05:00 AM EDT [facility] Name Value [...] IU/L 0-44 [facility] ID Date Data Source [id number] 12/11/2019 07:51:00 AM EDT [facility] Name Value Range Interpretation Code Description Data Geraldine rce(s) Supporting Document(s) Thyroid Stimulating Hormone 2.730 ME DENT ([facility]) ID Date Data Source [id number] 08/28/2019 10:28:00 AM EST [facility] [place] Value Range Interpretation Code Description Data Geraldine rce(s) Supporting Document(s) Thyrotropin [Units/volume] in Serum or Plasma by Detec tion limit <= 0.005 mIU/L 5.440 uIU/mL 0.450-4.500 [facility] ([facility]) Laboratory test finding (navigational concept) Laboratory test result [facility] ([facility]) ID Date Data Source [id number] 08/28/2019 10:28:00 AM EST [facility] ([facility]) Name Value Range Interpretation Code Description Data Geraldine rce(s) Supporting Document(s) Glucose 238 mg/dL 65-99 [facility] ([facility]) Creatinine 2.03 mg/dL 0.76-1.27 [facility] ([facility]) Urea nitrogen [Mass/volume] in Serum or Plasma 26 mg/dL 8-27 [facility] ([facility]) eGFR If NonAfricn Am 30 mL/min/1.73 [facility]E NT ([facility]) Sodium 136 mmol/L 134-144 [facility] ([facility]) Urea nitrogen/Creatinine [Mass Ratio] in Serum or Plasma 13 1 0-24 [facility] ([facility]) eGFR If Africn Am 34 mL/min/1.73 [facility] ([facility]) Chloride [Moles/volume] in Serum or Plasma 100 mmol/L 96-106 [facility] ([facility]) Potassium [Moles/volume] in Serum or Plasma 3.9 mmol/L 3.5-5.2 [facility] ([facility]) Carbon dioxide, total [Moles/volume] in Serum or Plasma 23 mmol/L 20 -29 [facility] ([facility]) Albumin [Mass/volume] in Serum or Plasma 3.2 g/dL 3.5-4.7 [facility] ([facility]) Effective September 04, 2019 Albumin ref erence [...] Plasma 8.4 mg/dL 8.6-10.2 [facility] ([facility]) Protein [Mass/volume] in Serum or Plasma 6.7 g/dL 6.0-8.5 [facility] ([facility]) A/G Ratio 0.9 1.2-2.2 [facility] Globulin [Mass/volume] in Serum by calculation 3.5 g/dL 1.5-4.5 [facility] ([facility]) Bilirubin.total [Mass/volume] in Serum or Plasma 0.7 mg/dL 0.0-1.2 [facility] ([facility]) Alanine aminotransferase [Enzymatic activity/volume] in Seru m or Plasma 29 IU/L 0-44 [facility] ([facility]) Alkaline phosphatase [Enzymatic activity/volume] in Serum or Plasma 185 IU/L 39-117 [facility] ([facility]) Aspartate aminotransferase [Enzymatic activity/volume] in Serum or Plasma 66 IU/L 0-40 [facility] ([facility]) ID Date Data Source [id number] 08/28/2019 10:28:00 AM EST [facility] ([facility] Name Value Range Interpretation Code Description Data Geraldine rce(s) Supporting Document(s) Natriuretic peptide.B prohormone N-Terminal [Mass/volu me] in Serum or Plasma 152 pg/mL 0-486 [facility] ([facility]) <content>The following cut-points have b een suggested for the</content>
<content>use of proBNP for the diagnostic evaluation of heart</content>
<content>failure (HF) in patients with acute dy spnea:</content>
<content>Modality Age Optimal Cut</content>
<content>(years) Point</content>
<content> ---</content>
<content>Diagnosis (rule in HF) <50 450 pg/mL</content>
<content>50 - 75 900 pg/mL</content>
<content>>75 1800 pg/mL</content>
<content> Exclusion (rule out HF) Age independent 300 pg/mL</content>
<content></content> ID Date Data Source [id number] 08/28/2019 10:28:00 AM EST [facility] ([facility]i [facility]) Name Value Range Interpretation Code Description Data Geraldine rce(s) Supporting Document(s) WBC 5.0 x10E3/uL 3.4-10.8 [facility] ([facility]) RBC 3.79 x10E6/uL 4.14-5.80 [facility] ([facility]iol[facility]) Hemoglobin [Mass/volume] in Blood 11.6 g/dL 13.0-17.7 [facility] ([facility]) Erythrocyte mean corpuscular volume [Entitic volume] by Auto mated count 93 fL 79-97 [facility] ([facility]) Erythrocyte mean corpuscular hemoglobin [Entitic mass] by Automated count 30.6 pg 26.6-33.0 [facility] ([facility]) Hematocrit [Volume Fraction] of Blood by Automated count 35.3 % 3 7.5-51.0 [facility] ([facility]) Erythrocyte distribution width [Ratio] by Automated count 15.9 % 11.6-15.4 [facility] ([facility]) Please note reference interval change* * Platelets [#/volume] in Blood by Automated count 99 x10E3/uL 150-450 Below lower panic limits [facility] ([facility]) Actual platelet count may be somewhat hi gher than reported due to aggregation of platelets in this sample. Erythrocyte mean corpuscular hemoglobin concentration [Mass/volume] by Automated count 32.9 g/dL 31.5-35.7 [facility] ([facility]) Neutrophils/100 leukocytes in Blood by Automated count 47 % [facility] ([facility]) Monocytes/100 leukocytes in Blood by Automated count 12 % [facility] ([facility]) Lymphocytes/100 leukocytes in Blood by Automated count 38 % [facility] ([facility]) Eosinophils/100 leukocytes in Blood by Automated count 3 % [facility] ([facility]) Basophils/100 leukocytes in Blood by Automated count 0 % [facility] ([facility]) Immature cells [#/volume] in Blood Laboratory test result [facility] ([facility]) Lymphocytes [#/volume] in Blood 1.9 x10E3/uL 0.7-3.1 [facility] ([facility]) Monocytes [#/volume] in Blood 0.6 x10E3/uL 0.1-0.9 [facility] ([facility]) Neutrophils [#/volume] in Blood by Automated count 2.3 x10E3/uL 1.4-7 .0 [facility] ([facility]) Basophils [#/volume] in Blood by Automated count 0.0 x10E3/uL 0.0-0.2 [facility] ([facility]) Eosinophils [#/volume] in Blood by Automated count 0.1 x10E3/uL 0.0-0 .4 [facility] ([facility]) Immature granulocytes/100 leukocytes in Blood by Automated count 0 % [facility] ([facility] [facility]) Immature granulocytes [#/volume] in Blood by Automated count 0.0 x10E3/uL 0.0-0.1 MEDENT ([facility]) Morphology [Interpretation] in Blood Narrative Laboratory test result [facility] ([facility]) Verified by microscopic examination. Nucleated erythrocytes/100 leukocytes [Ratio] in Blood by Automated count Laboratory test result [facility] ([facility]) ID Date Data Source [id number] 08/29/2019 08:06:00 AM EST [facility] Name Value [...] IU/L 0-44 [facility] ID Date Data Source [id number] 08/29/2019 10:05:00 AM EST [facility] Name Value [...] by microscopic examination. ID Date Data Source [id number] 08/30/2019 06:05:00 AM EST [facility] Name Value [...] independent 300 pg/mL ID Date Data Source [id number] 08/29/2019 08:06:00 AM EST [facility] Name Value Range Interpretation Code Description Data Geraldine rce(s) Supporting Document(s) TSH 5.440 uIU/mL 0.450-4.500 Above high normal [facility] Procedure Vital Signs ID Date Data Source UNK Name Value Range Interpretation Code Description Data Source(s) Diastolic blood pressure 68 mm[Hg] 68 mm[Hg] eCW1 ([facility]) Systolic blood pressure 116 mm[Hg] 116 mm[Hg] e CW1 ([facility]) Body temperature 98.4 [degF] 98.4 [degF] W1 ( [facility]) Respiratory rate 18 /min 18 /min eCW1 ([facility]) Heart rate 89 /min 89 /min eCW1 ([facility]) Body mass index (BMI) [Ratio] 31.87 kg/m2 31.87 kg/m2 W1 ([facility]) Body height 72 [in_i] 72 [in_i] eCW1 ([facility]) Body weight 235.0 [lb_av] 235.0 [lb_av] eCW1 ([facility]) Diastolic blood pressure--supine 76 mm[Hg] 76 mm[Hg] MED[facility] ([facility]) Systolic blood pressure--supine 138 mm[Hg] 138 mm[Hg] MED[facility] ([facility]) Diastolic blood pressure--sitting 72 mm[Hg] 72 mm[Hg] MED[facility] ([facility]) Medium cuff, Ra (asymptomatic) Systolic blood pressure--sitting 118 mm[Hg] 118 mm[Hg] [facility] ([facility]) Medium cuff, Ra (asymptomatic) Respiratory rate 16 /min 16 /min [facility] ( [facility]) Heart rate 68 /min 68 /min [facility] ([facility]) regular Body mass index (BMI) [Ratio] 31.5 kg/m2 31.5 k g/m2 [facility] ([facility]) Body height 73 [in_i] 73 [in_i] [facility] ([facility]) 6'1" Body weight 239.00 [lb_av] 239.00 [lb_av] MEDEN T ([facility]) Diastolic blood pressure 72 mm[Hg] 72 mm[Hg] eCW1 ([facility]) Systolic blood pressure 120 mm[Hg] 120 mm[Hg] e CW1 ([facility]) Body temperature 97.3 [degF] 97.3 [degF] eCW1 ( [facility]) Respiratory rate 18 /min 18 /min eCW1 ([facility]) Heart rate 85 /min 85 /min eCW1 ([facility]) Body mass index (BMI) [Ratio] 31.84 kg/m2 31.84 kg/m2 eCW1 ([facility]) Body height 72 [in_us] 72 [in_us] eCW1 ([facility]) Body weight Measured 234.8 [lb_av] 234.8 [lb_av ] eCW1 ([facility]) Diastolic blood pressure--supine 82 mm[Hg] 82 mm[Hg] [facility] ([facility]) Systolic blood pressure--supine 123 mm[Hg] 123 mm[Hg] [facility] ([facility]) Diastolic blood pressure--sitting 82 mm[Hg] 82 mm[Hg] MED[facility] ([facility]) Medium cuff, Ra Systolic blood pressure--sitting 108 mm[Hg] 108 mm[Hg] MEDENT ([facility]) Medium cuff, Ra Respiratory rate 16 /min 16 /min MED[facility] ( [facility]) Heart rate 54 /min 54 /min [facility] ([facility]) regular Body mass index (BMI) [Ratio] 30.7 kg/m2 30.7 k g/m2 MED[facility] ([facility]) Body height 73 [in_i] 73 [in_i] [facility] ([facility]) 6'1" Body weight 233.00 [lb_av] 233.00 [lb_av] JOSE T ([facility]) Patient Treatment Plan of Care Planned Activity Planned Date Details Description Data Source (s) December - 08/13/2020 12:00:00 AM BAYLEE lerma CW1 ([facility])
[2020-09-18] MEDS ORDERED: ALBU83IN INH (22:33)
[2020-09-18] MEDS ORDERED: AZIT500T5 PO (22:33)
[2020-09-18] MEDS ORDERED: VITMTA PO (22:33)
[2020-09-18] MEDS ORDERED: OYST500T91 PO (22:33)
[2020-09-18] MEDS ORDERED: MAGN1TAB26 PO (22:33)
[2020-09-18] MEDS ORDERED: MIRA1POW3 PO (22:33)
[2020-09-18] MEDS ORDERED: ASPI-161 PO (22:33)
[2020-09-18] MEDS ORDERED: ACET-897 PO (22:33)
[2020-09-18] MEDS ORDERED: SENN-122 PO (22:33)
--- NOTE | 2020-09-18 23:26 | HPEPDOC ---
[facility] Medical History & Physical Date of Admission Sep 18, 2020 Date of Service: Sep 18, 2020 History and Physical CHIEF COMPLAINT: Confusion HISTORY OF PRESENT ILLNESS: Patient is 84 year old male with dementia, CAD, CKD, valvular disease s/p valve replacement (unknown which), DM, HTN, HLD, CKD was brought into the ER due to increasing confusion and SOB. Patient was found to be COVID-19+ with multifocal lung infiltrates on CT chest. He was found to be hypoxic requiring oxygen via NRB and still has hypoxic episodes into 80s with movement in bed. Na 128, K 6.5, lactic acid 2.4, Cr 3.17, D-dimer 3128 and BNP of 1154. History was obtained partially from previous admission and part from daughter Lizabeth. Patient is confused and only grunts and mumbles. ER provider had spoken to family extensively regarding patient's condition and current findings in the ER and reportedly family wants to bring patient home tomorrow and had already made arrangements. Spoke with patient's daughter Lizabeth who confirmed that family does want to bring patient home tomorrow and had already started making phone calls to arrange home equipments. It appears that these decision are in line with comfort care at home, however, family emphasized to keep patient full code at this time. PAST MEDICAL HISTORY: Refer to [facility] PAST SURGICAL HISTORY: back surgery Cervical spine surgery Valvular heart surery SOCIAL HISTORY: Former tobacco user. Denies alcohol or illicit drug use. FAMILY HISTORY: Father: DM Mother- stomach ulcer. ALLERGIES: Please see below. REVIEW OF SYSTEMS: 10 point review of system negative except as stated in [facility] HOME MEDICATIONS: Please see below. PHYSICAL EXAMINATION: General: Alert but severely confused. Mumbles but no comprehensible words produced. Does not follow commands. Eyes: Normal sclera, EOMI HENT: Atraumatic Cardiovascular: Normal rate, normal rhythm. Pulmonary: Diffuse coarse breath sounds b/l. GI: Soft, nontender, nondistended Skin: Warm and dry Neuro: Moving all extremities, unable to fully assess due to confusion. Psych: Confused. Does not follow commands. LABORATORY DATA: See below. IMAGING: CT head: No acute intracranial pathology. CT Chest: Significantly limited study secondary to gross patient motion, demonstrating multifocal lung infiltrates suggestive of COVID-[address] Abdomen/Pelvis: 1. Severely limited study secondary to gross patient motion throughout the scan, and absence of IV and enteric contrast. 2. Cirrhosis, splenomegaly and moderate volume of abdominal and pelvic ascites. 3. Circumferential mural edema of the sigmoid colon and rectum which can be secondary to hypoalbuminemia related to hepatic disease or could be inflammatory. 4. Colonic diverticulosis without active inflammation MICROBIOLOGY: Please see below. ASSESSMENT AND PLAN: 1. COVID-19 PNA w/ hypoxic respiratory failure - Evidence by CT showing multifocal infiltrates and + COVID-19. - Hypoxia requiring oxygen via NRB. Drops to 80s with movement despite O2 supp ort. - Started on Dexamethasone and Remdesivir treatment. - D dimer 3128. Given that patient is in ICU, will threat with .5mg/kg lovenox dosing. daily dose due to CrCl <30. - Admit to COVID-19 ICU and re-evaluate status tomorrow. - If patient remains full code, likely will need to sign out AMA given current condition. If changed to comfort care, would benefit from hospice vs. palliative care consultation. - Given his short stay so far in hospital and hemodynamically stable, it may be premature to recommend CC at this time although that will be the family's decision. Will benefit from status updates tomorrow as we go along. 2. CHF? - Questionable diagnosis of CHF. ECHO from 2004 shows normal cardiac function, unsure if there are other ECHO done that is not in the system. - No pitting edema appreciated although BNP 1154. - Will cautious give low rate IVF for lactic acidosis, ALFRED. 3. CAD - Negative troponin. Hold oral meds at this time due to confusion. 4. ALFRED on CKD - Cr 3.17. Gentle IVF support, recheck renal function in AM. - Follows with Dr Barakat as outpatient. 5. Valvular disease s/p replacement - Unsure which valve. Dr. Deng is patient's senior it auditor. Perhaps can get some records in AM. DVT ppx: SCD. Code status: Full code. Will discuss if family wants to bring patient home in AM. Not appropriate for discharge if wants everything done, unless patient is comfort care. Vital Signs Vital Signs Date Time Temp Pulse Resp B/P (MAP) Pulse Ox O2 Delivery O2 Flow Rate FiO2 09/18/20 22:01 84 108/84 (92) 90 Non-Rebreather 09/18/20 18:45 2.0 09/18/20 17:45 24 09/18/20 17:30 96.8 09/18/20 15:51 88 Laboratory Data Labs 24H Laboratory Tests 2 09/18/20 14:46: Immature Granulocyte % (Auto) 1.1, Neutrophils (%) (Auto) 88.3H, Lymphocytes (%) (Auto) 5.1L, Monocytes (%) (Auto) 5.4H, Eosinophils (%) (Auto) 0.0, Basophils (%) (Auto) 0.1, Neutrophils # (Auto) 8.6H, Lymphocytes # (Auto) 0.5L, Monocytes # (Auto) 0.5, Eosinophils # (Auto) 0.0, Basophils # (Auto) 0.0, Nucleated Red Blood Cells % (auto) 0.0, Immature Platelet Fraction 8.5, D-Dimer, Quantitative 3128.00H, Anion Gap 6L, Glomerular Filtration Rate 20.1L, Osmolality 297, Lactic Acid Level 2.4*H, Calcium Level 7.6L, Ferritin 194, Total Bilirubin 1.2H, Direct Bilirubin 0.4H, Aspartate Amino Transf (AST/SGOT) 154H, Alanine Aminotransferase (ALT/SGPT) 57, Alkaline Phosphatase 204H, Lactate Dehydrogenase 872H, Total Creatine Kinase 843H, Creatine Kinase MB 19.5H, Creatine Kinase MB Relative Index 2.31, Troponin I 0.07, C-Reactive Protein, Quantitative 6.90H, Total Prot ein 6.4, Albumin 2.1L, Albumin/Globulin Ratio 0.5, Thyroid Stimulating Hormone (TSH) 0.415, Ethyl Alcohol Level < 0.003 09/18/20 14:49: Blood Gas Bicarbonate Standard 19.3, Venous Blood pH 7.304L, Venous Blood Partial Pressure CO2 40.5, Venous Blood Partial Pressure O2 119.2H, Venous Blood Total Carbon Dioxide 20.9L, Venous Blood HCO3 19.7L, Venous Blood Oxygen Saturation 97.6H, Venous Blood Base Excess -6.2L, Ammonia 65H, PE-Ixl-K-Type Natriuretic Peptide 1154H 09/18/20 17:12: Urine Color YELLOW, Urine Appearance HAZY, Urine pH 5.0, Urine Specific [place] 1.012, Urine Protein 1+H, Urine Glucose (UA) NEGATIVE, Urine Ketones NEGATIVE, Urine Blood 1+H, Urine Nitrite NEGATIVE, Urine Bilirubin NEGATIVE, Urine Urobilinogen 0.2, Urine Leukocyte Esterase 1+H, Urine WBC (Auto) 31H, Urine RBC (Auto) 1, Urine Hyaline Casts (Auto) 3, Urine Bacteria (Auto) 1+H, Urine Squamous Epithelial Cells 0, Urine Sperm (Auto) 09/18/20 21:20: Lactic Acid Followup at 4 Hours 2.2*H CBC/BMP Laboratory Tests 09/18/20 14:46 Microbiology Microbiology 09/18/20 Urine Culture, Received Pending 09/18/20 Blood Culture, Received Pending 09/18/20 Blood Culture, Received Pending 09/18/20 Respiratory Virus Panel (PCR) ([facility]EVAN) - Final, Complete SARS-CoV-2 (COVID 19) Home Medications Scheduled Amiodarone HCl (Amiodarone HCl) 100 Mg Tablet, 100 MG PO DAILY Aspirin (Aspirin EC) 81 Mg Tablet.dr, 81 MG PO DAILY Atorvastatin Calcium (Atorvastatin Calcium) 40 Mg Tablet, 40 MG PO QHS Azithromycin (Azithromycin) 500 Mg Tablet, 500 MG PO DAILY LAST DOSE WAS DAY 3 OF REGIMEN Calcitriol (Calcitriol) 0.25 Mcg Capsule, 0.25 MCG PO 3XW WEDNESDAY, WEDNESDAY AND WEDNESDAY Calcium Carbonate/Vitamin D3 (Calcium 500-Vit D3 200 Tablet) 1 Each Tablet, 1 TAB PO QPM TAKES WITH DINNER Dexamethasone (Dexamethasone) 2 Mg Tablet, 6 MG PO DAILY Famotidine (Famotidine) 40 Mg Tablet, 40 MG PO DAILY Glimepiride (Glimepiride) 1 Mg Tablet, 1 MG PO DAILY Levothyroxine Sodium (Levothyroxine Sodium) 75 Mcg Tablet, 75 MCG PO DAILY Magnesium Oxide (Magnesium Oxide) 400 Mg Tablet, 800 MG PO DAILY Multivitamins (Thera M Plus Tablet) 1 Each Tablet, 1 TAB PO DAILY Polyethylene Glycol 3350 (Miralax) 17 Gm Powd.pack, 17 GM PO QHS Potassium Chloride (Potassium Chloride) 10 Meq Tablet.er, 10 MEQ PO DAILY Sennosides/Docusate Sodium (Senna-S 8.6-50 mg Tablet) 8.6 Mg-50 Mg Tablet, 2 TAB PO QHS Sitagliptin (Januvia) 50 Mg Tablet, 50 MG PO DAILY Spironolactone (Spironolactone) 25 Mg Tablet, 25 MG PO DAILY Tamsulosin Hcl (Tamsulosin HCl) 0.4 Mg Capsule, 0.8 MG PO QHS Torsemide (Torsemide) 10 Mg Tablet, 20 MG PO DAILY Scheduled PRN Acetaminophen (Tylenol Extra Strength) 500 Mg Tablet, 1,000 MG PO Q6H PRN for PAIN / FEVER Albuterol Sulf (Albuterol Sulfate) 2.5 Mg/3 Ml Vial.neb, 2.5 MG INH Q4H PRN for SHORTNESS OF BREATH Allergies Coded Allergies: hydrochlorothiazide (Verified Allergy, Unknown, 09/18/20) A-FIB/CHADSVASC A-FIB History Current/History of A-Fib/PAF?: No DOMI CHRISTENSEN MD Sep 18, 2020 23:26
[2020-09-18] MEDS: LORazepam 2 MG/ML VIAL IV PRN (23:51)
[2020-09-19] VITALS (10 sets, daily range): BP systolic 112–129; BP diastolic 58–92
[2020-09-19] MEDS ORDERED: NS 1,000 ML IV SCH (00:15)
[2020-09-19] MEDS ORDERED: REMDESIVIR 200 MG in NS 250 ML IV ONE (00:30)
[2020-09-19] MEDS ORDERED: SODIUM CHLORIDE 0.9% INJ 10 ML SYR IV ONE (02:30)
[2020-09-19] MEDS ORDERED: FUROSEMIDE 40MG/4ML VIAL (J1940) IV ONE (02:30)
[2020-09-19] MEDS ORDERED: FUROSEMIDE 40MG/4ML VIAL (J1940) As Ordered ONE (02:46)
[2020-09-19 05:04] LABS: HEMATOCRIT 30.9 % (42.0-52.0); HEMOGLOBIN 9.9 g/dl (13.5-17.5); MEAN CORPUSCULAR HEMOGLOBIN 32.5 pg (27.0-33.0); MEAN CORPUSCULAR VOLUME 101.3 fl (80.0-96.0); RED BLOOD COUNT 3.05 10^6/uL (4.30-6.10); WHITE BLOOD COUNT 10.4 10^3/uL (4.0-10.0)
[2020-09-19 05:11] LABS: PLATELET COUNT, AUTOMATED 68 10^3/uL (150-450)
[2020-09-19 05:14] LABS: INR 1.18; PROTHROMBIN TIME 15.3 SECONDS (12.5-14.3)
[2020-09-19 05:19] LABS: ALBUMIN 2.1 GM/DL (3.2-5.2); BILIRUBIN,TOTAL 1.2 MG/DL (0.2-1.0); CALCIUM LEVEL 7.5 MG/DL (8.8-10.2); CREATININE FOR GFR 3.35 MG/DL (0.70-1.30); GLOMERULAR FILTRATION RATE 18.8 (>35); POTASSIUM SERUM 5.9 MEQ/L (3.5-5.1); TOTAL PROTEIN 6.5 GM/DL (6.4-8.2)
--- NOTE | 2020-09-19 07:36 | IPNPDOC ---
Text Note Date of Service The patient was seen on 09/19/20. VS,Fishbone, I+O VS, Fishbone, I+O Laboratory Tests 09/18/20 14:46 09/19/20 04:44 Vital Signs Date Time Temp Pulse Resp B/P (MAP) Pulse Ox O2 Delivery O2 Flow Rate FiO2 09/19/20 06:00 69 20 121/63 (82) 97 Nasal Cannula 4.0 09/19/20 04:00 96.9 09/18/20 15:51 88 I&O- Last 24 Hours up to 6 AM 09/19/20 06:00 Intake Total 0 ml Output Total 650 ml Balance -650 ml GME ATTESTATION GME ATTESTATION My faculty preceptor for this patient encounter was physically present during the encounter and was fully available. All aspects of the patient interview, examination, medical decision making process, and medical care plan development were reviewed and approved by the faculty preceptor. The faculty preceptor is aware and concurs with the plan as stated in the body of this note and will attest to such by his/her cosignature. PAPITO JHAVERI DO Sep 19, 2020 07:36
--- NOTE | 2020-09-19 07:39 | ECGEPIP ---
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
[2020-09-19] MEDS ORDERED: ENOXAPARIN 60MG/0.6ML SYRINGE (J1650 PER 10MG) SC SCH ×2 (09:00)
[2020-09-19] MEDS ORDERED: LORazepam 2 MG/ML VIAL As Ordered ONE ×2 (11:09→14:50)
[2020-09-19] MEDS: LORazepam 2 MG/ML VIAL IV PRN ×2 (11:11→16:38)
--- NOTE | 2020-09-19 17:48 | DS.PDOC ---
Discharge Summary General Date of Admission Sep 18, 2020 at 20:48 Date of Discharge 09/19/20 Primary Care Physician: Costa Camacho Attending Physician: NIRAV PHIPPS MD Discharge Summary PROCEDURES PERFORMED DURING STAY: None. ADMITTING/DISCHARGE DIAGNOSES: Hypoxic respiratory failure Covid 19 pneumonia Possible CHF Chronic coronary artery disease ALFRED on CKD Valvular heart disease status post aortic valve replacement Senile dementia Hypertension Hyperlipidemia History of liver cirrhosis COMPLICATIONS/CHIEF COMPLAINT: Pneumonia Due To Covid-19 Virus. HISTORY OF PRESENT ILLNESS: Patient is 84 year old male with dementia, CAD, CKD, valvular disease s/p valve replacement (unknown which), DM, HTN, HLD, CKD was brought into the ER due to increasing confusion and SOB. Patient was found to be COVID-19+ with multifocal lung infiltrates on CT chest. He was found to be hypoxic requiring oxygen via NRB and still has hypoxic episodes into 80s with movement in bed. Na 128, K 6.5, lactic acid 2.4, Cr 3.17, D-dimer 3128 and BNP of 1154. History was obtained partially from previous admission and part from daughter Lizabeth. Patient is confused and only grunts and mumbles. ER provider had spoken to family extensively regarding patient's condition and current findings in the ER and reportedly family wants to bring patient home tomorrow and had already made arrangements. Spoke with patient's daughter Lizabeth who confirmed that family does want to bring patient home tomorrow and had already started making phone calls to arrange home equipments. It appears that these decision are in line with comfort care at home, however, family emphasized to keep patient full code at this time. HOSPITAL COURSE: The patient was admitted overnight and started on therapy in accordance with their CODE STATUS. Dr. Phipps reached out to the patient's daughter, Lizabeth, over the phone to get a better understanding of what the patient would have wanted in this scenario. The daughter explained that the patient would not have wanted to remain in the hospital, would not of wanted to pursue curative treatment, and ultimately would want to be a DO NOT RESUSCITATE/DO NOT INTUBATE. The daughter further explained that the patient would have preferred to be made comfortable at home and that she was setting up durable medical equipment including home oxygen so that he could come home. There was an attempt made to set up a hospice referral however hospice would not except the patient because of his Covid status. The family continued to not wish for comfort measures only despite the explanation that the patient's respiratory status was unlikely to improve on its own at home. It was explained to her by both Dr. phipps as well as by RN Gabriella Vigil, that this would result likely, in the patient's passing, as withdrawal from ongoing care at the hospital would likely make his situation unsurvivable in light of his hypoxic respiratory failure. The daughter verbalized understanding of that situation and still wished to pursue having him come home to be with his family during this time. The patient was changed from full code to DNR/DNI. Because of this the patient was not discharged with palliative medications as this would need to be something obtained through the primary care provider. I did reach out to Dr. Costa Camacho to explain the situation and he was agreeable to providing the family with palliative medications in the event that the patient needed them. DISCHARGE MEDICATIONS: Please see below. ALLERGIES: Please see below. PHYSICAL EXAMINATION ON DISCHARGE: VITAL SIGNS: Please see below. General: Alert but severely confused. Mumbles but no comprehensible words produced. Does not follow commands. HEENT: Normocephalic, Atraumatic. EOMI, sclera nonicteric. Mucous membranes moist. Cardiovascular: Normal rate, normal rhythm. Pulmonary: Diffuse coarse breath sounds b/l. Not using accessory muscles of respiration. GI: Soft, nontender, nondistended Skin: Warm and dry Neuro: Moving all extremities, unable to fully assess due to confusion. Psych: Confused. Does not follow commands. LABORATORY DATA: Please see below. IMAGING: CT head: No acute intracranial pathology. CT Chest: Significantly limited study secondary to gross patient motion, demonstrating multifocal lung infiltrates suggestive of COVID-[address] Abdomen/Pelvis: 1. Severely limited study secondary to gross patient motion throughout the scan, and absence of IV and enteric contrast. 2. Cirrhosis, splenomegaly and moderate volume of abdominal and pelvic ascites. 3. Circumferential mural edema of the sigmoid colon and rectum which can be secondary to hypoalbuminemia related to hepatic disease or could be inflammatory. 4. Colonic diverticulosis without active inflammation PROGNOSIS: Poor ACTIVITY: As tolerated DIET: As tolerated DISCHARGE PLAN: Home DISPOSITION: 01 Home, Self-Care. DISCHARGE INSTRUCTIONS: 1. Follow-up with primary care provider as needed. TIME SPENT ON DISCHARGE: 40 minutes. Vital Signs/I&Os Vital Signs Date Time Temp Pulse Resp B/P (MAP) Pulse Ox O2 Delivery O2 Flow Rate FiO2 09/19/20 12:00 4.0 09/19/20 12:00 96.6 66 20 119/59 (79) 95 Nasal Cannula 09/18/20 15:51 88 I&O- Last 24 Hours up to 6 AM 09/19/20 06:00 Intake Total 0 ml Output Total 650 ml Balance -650 ml Laboratory Data Labs 24H Laboratory Tests 2 09/18/20 21:20: Lactic Acid Followup at 4 Hours 2.2*H 09/19/20 04:44: Nucleated Red Blood Cells % (auto) 0.0, Prothrombin Time 15.3H, Prothromb Time International Ratio 1.18, Anion Gap 9, Glomerular Filtration Rate 18.8L, Calcium Level 7.5L, Total Bilirubin 1.2H, Aspartate Amino Transf (AST/SGOT) 119H, Alanine Aminotransferase (ALT/SGPT) 58, Alkaline Phosphatase 193H, Total Protein 6.5, Albumin 2.1L, Albumin/Globulin Ratio 0.5 CBC/BMP Laboratory Tests 09/19/20 04:44 Microbiology Microbiology 09/18/20 Urine Culture, Received Pending 09/18/20 Blood Culture - Preliminary, Resulted No growth after 24 hours . All specim... 09/18/20 Blood Culture - Preliminary, Resulted No growth after 24 hours . All specim... 09/18/20 Respiratory Virus Panel (PCR) ([facility]) - Final, Complete SARS-CoV-2 (COVID 19) Discharge Medications Scheduled Amiodarone HCl (Amiodarone HCl) 100 Mg Tablet, 100 MG PO DAILY, (Reported) Aspirin (Aspirin EC) 81 Mg Tablet.dr, 81 MG PO DAILY, (Reported) Atorvastatin Calcium (Atorvastatin Calcium) 40 Mg Tablet, 40 MG PO QHS, (Reported) Azithromycin (Azithromycin) 500 Mg Tablet, 500 MG PO DAILY, (Reported) LAST DOSE WAS DAY 3 OF REGIMEN Calcitriol (Calcitriol) 0.25 Mcg Capsule, 0.25 MCG PO 3XW, (Reported) WEDNESDAY, WEDNESDAY AND WEDNESDAY Calcium Carbonate/Vitamin D3 (Calcium 500-Vit D3 200 Tablet) 1 Each Tablet, 1 TAB PO QPM, (Reported) TAKES WITH DINNER Dexamethasone (Dexamethasone) 2 Mg Tablet, 6 MG PO DAILY, (Reported) Famotidine (Famotidine) 40 Mg Tablet, 40 MG PO DAILY, (Reported) Glimepiride (Glimepiride) 1 Mg Tablet, 1 MG PO DAILY, (Reported) Levothyroxine Sodium (Levothyroxine Sodium) 75 Mcg Tablet, 75 MCG PO DAILY, (Reported) Magnesium Oxide (Magnesium Oxide) 400 Mg Tablet, 800 MG PO DAILY, (Reported) Multivitamins (Thera M Plus Tablet) 1 Each Tablet, 1 TAB PO DAILY, (Reported) Polyethylene Glycol 3350 (Miralax) 17 Gm Powd.pack, 17 GM PO QHS, (Reported) Potassium Chloride (Potassium Chloride) 10 Meq Tablet.er, 10 MEQ PO DAILY, (Reported) Sennosides/Docusate Sodium (Senna-S 8.6-50 mg Tablet) 8.6 Mg-50 Mg Tablet, 2 TAB PO QHS, (Reported) Sitagliptin (Januvia) 50 Mg Tablet, 50 MG PO DAILY, (Reported) Spironolactone (Spironolactone) 25 Mg Tablet, 25 MG PO DAILY, (Reported) Tamsulosin Hcl (Tamsulosin HCl) 0.4 Mg Capsule, 0.8 MG PO QHS, (Reported) Torsemide (Torsemide) 10 Mg Tablet, 20 MG PO DAILY, (Reported) Scheduled PRN Acetaminophen (Tylenol Extra Strength) 500 Mg Tablet, 1,000 MG PO Q6H PRN for PAIN / FEVER, (Reported) Albuterol Sulf (Albuterol Sulfate) 2.5 Mg/3 Ml Vial.neb, 2.5 MG INH Q4H PRN for SHORTNESS OF BREATH, (Reported) Allergies Coded Allergies: hydrochlorothiazide (Verified Allergy, Unknown, 09/18/20) GME ATTESTATION GME ATTESTATION My faculty preceptor for this patient encounter was physically present during the encounter and was fully available. All aspects of the patient interview, examination, medical decision making process, and medical care plan development were reviewed and approved by the faculty preceptor. The faculty preceptor is aware and concurs with the plan as stated in the body of this note and will attest to such by his/her cosignature. ATTENDING NOTE I, Nirav Phipps MD, have independently examined this patient and performed my own physical exam, as well as reviewed the documentation and edited where necessary. I have discussed in detail with the resident / student the findings and plan of treatment as documented by the resident / student and edited their note. I agree with their findings and treatment plan and have edited their documentation. In addition to the above-mentioned discharge summary. I had a detailed discussion with one of the daughters Mrs. Burton about the clinical condition of her father and after having a detailed discussion, the family wanted to take Mr. Cantu home and wanted him to spend all of his left time with loud once. I had a discussion with her regarding his alteration in mental status as well as his i nability to drink or eat anything. She understood that there might be of bad prognosis and still wanted to have Mr. Cantu home with the loud once. The showcase maker also spoke with the other daughter regarding the possibilities of arrangement of home oxygen, any other needs along with that, the family was advised that because of the Coumadin 19 restrictions. We will not be able to set up home with home hospice. They understood and the decision was made to send the patient home without hospice. With that, the primary care physician was updated for possible follow-up as an outpatient/daily visit. Keeping all the family's request and patient's wishes in mind. The patient was discharged home. PAPITO JHAVERI DO Sep 19, 2020 17:48 NIRAV PHIPPS MD Sep 20, 2020 13:00
[2020-09-20] MEDS ORDERED: REMDESIVIR 100 MG in NS 250 ML IV SCH ×2
[2020-09-20] MEDS ORDERED: SODIUM CHLORIDE 0.9% INJ 10 ML SYR IV SCH (01:00)
== END 2020-09-19 20:58 | disposition home health service (06) | DRG 177 ==
LOC: M ED 14:23 → EDBD 14:23 → M ED INP 20:48 → ENRESERV 23:19 → M ICU 09-19 00:02
PROVIDERS: ADMIT Student in an Organized Health Care Education/Training Program; ATTEND Internal Medicine
DX: U07.1 COVID-19 (principal); J12.82 Pneumonia due to coronavirus disease 2019; J96.91 Respiratory failure, unspecified with hypoxia; N17.9 Acute kidney failure, unspecified; I13.0 Hypertensive heart and chronic kidney disease with heart failure and stage 1 through stage 4 chronic kidney disease, or unspecified chronic kidney disease; N18.9 Chronic kidney disease, unspecified; F03.90 Unspecified dementia, unspecified severity, without behavioral disturbance, psychotic disturbance, mood disturbance, and anxiety; E11.22 Type 2 diabetes mellitus with diabetic chronic kidney disease; I50.9 Heart failure, unspecified; E78.5 Hyperlipidemia, unspecified; K74.60 Unspecified cirrhosis of liver; I25.10 Atherosclerotic heart disease of native coronary artery without angina pectoris; Z79.82 Long term (current) use of aspirin; Z79.899 Other long term (current) drug therapy; Z88.8 Allergy status to other drugs, medicaments and biological substances; Z95.2 Presence of prosthetic heart valve